=== PATIENT | female | born 1960 | race African-American/Black ===

== ENCOUNTER → 2016-08-26 | Outpatient (CLI) | payer MEDICARE, MEDICAID ==
[2016-08-26 11:47] LABS: ANION GAP 11 (5-19); BLOOD UREA NITROGEN 23 mg/dL (7-20); CALCIUM 9.3 mg/dL (8.4-10.2); CARBON DIOXIDE 23 mmol/L (22-30); CHLORIDE 110 mmol/L (98-107); CREATININE RESULT 0.87 mg/dL (0.52-1.25); GLUCOSE 102 mg/dL (75-110); MAGNESIUM 1.8 mg/dL (1.6-2.3); POTASSIUM 4.2 mmol/L (3.6-5.0); SODIUM 143.7 mmol/L (137-145)
== END ==
LOC: OD 09:50
PROVIDERS: ATTEND Internal Medicine Nephrology
DX: Z94.0 Kidney transplant status (principal); N18.5 Chronic kidney disease, stage 5; E83.42 Hypomagnesemia; Z79.899 Other long term (current) drug therapy
CPT/HCPCS: 36415; 80048; 80197; 83735

== ENCOUNTER 2018-12-18 00:47 | Emergency (ER) | payer MEDICARE, MEDICAID ==
[2018-12-18] MEDS ORDERED: NORMAL SALINE 1000 ML 1,000 ML IV ONE (01:28)
[2018-12-18] MEDS ORDERED: MORPHINE SULFATE 10 MG/ML INJ IV PRN (01:28)
[2018-12-18] MEDS ORDERED: KETOROLAC TROMETHAMINE INJ/PF 30 MG/1 ML SDV IV ONE (01:28)
[2018-12-18] MEDS ORDERED: ONDANSETRON HCL INJ/PF 4 MG/2 ML SDV IV ONE (02:18)
--- NOTE | 2018-12-18 03:00 | ER Document Report ---
ED General - General Chief Complaint: Flank Pain Stated Complaint: FLANK PAIN Time Seen by Provider: 12/18/18 01:20 Primary Care Provider: YOSEPH CHERY MD [Primary Care Provider] - Follow up as needed Notes: Patient is a 58-year-old female with end-stage renal disease, not currently on dialysis, status post renal transplant remotely that presents to the emergency department for chief complaint of left lower quadrant abdominal pain, and hematuria. Patient reports she is been having pain in her left lower quadrant, off and on for about a month, she states is gotten progressively worse over the past few days, she is overall poor historian, is not eliciting much on history taking. She describes her pain as sharp and stabbing, she denies being constipated or having any diarrhea. She also noted some blood in her urine, she states she does produce urine, but is getting close to being put on dialysis, she does have an AV fistula in her left upper extremity. She did have a renal transplant remotely. She also has a ureteral stent, into her renal transplant, she states that was placed in June. She denies having any dysuria, hematuria or urinary frequency. She denies any any fevers, chills, night sweats, chest pain, shortness of breath or difficulty breathing. She currently rates her pain as a 6 out of 10 describes as an aching sharp sensation that seems to be constant in her left lower quadrant. Past Medical History: End-stage renal disease, hypertension Past Surgical History: Renal transplant, ureteral stent, AV fistula Social History: Denies current tobacco, alcohol or drug use. Family History: Reviewed and noncontributory for presenting illness Allergies: Reviewed, see documented allergy list. REVIEW OF SYSTEMS: Other than noted above, the 12 point review of systems was reviewed with the patient and were negative, all pertinent findings are included in the HPI. PHYSICAL EXAMINATION: Vital signs reviewed, nursing noted reviewed. GENERAL: Well-appearing, well-nourished and in no acute distress. HEAD: Atraumatic, normocephalic. EYES: Eyes appear normal, extraocular movements intact, sclera anicteric, conjunctiva are normal. ENT: nares patent, oropharynx clear without exudates. Moist mucous membranes. NECK: Normal range of motion, supple without lymphadenopathy LUNGS: Breath sounds clear to auscultation bilaterally and equal. No wheezes rales or rhonchi. HEART: Regular rate and rhythm without murmurs ABDOMEN: Soft, left lower quadrant tenderness with palpation, her renal transplant graft is palpable on her right lower abdomen it is nontender in this area, normoactive bowel sounds. No rebound, guarding, or rigidity. No masses appreciated. EXTREMITIES: Nontender, good range of motion, trace bilateral lower extremity edema, left upper extremity AV fistula, positive bruit, positive thrill NEUROLOGICAL: No focal neurological deficits. Moves all extremities spontaneously Motor and sensory grossly intact on exam. PSYCH: Normal mood, flat affect SKIN: Warm, Dry, normal turgor, no rashes or lesions noted on exposed skin TRAVEL OUTSIDE OF THE [place] IN LAST 30 DAYS: No - Related Data Allergies/Adverse Reactions: Penicillins Allergy (Unknown, Verified 11/23/18 15:14) Past Medical History - Social History Smoking Status: Never Smoker Chew tobacco use (# tins/day): No Frequency of alcohol use: None Drug Abuse: None Family History: Hypertension Patient has suicidal ideation: No Patient has homicidal ideation: No - Past Medical History Cardiac Medical History: Reports: Hx Hypertension Denies: Hx Coronary Artery Disease, Hx Heart Attack Pulmonary Medical History: Denies: Hx Asthma, Hx Bronchitis, Hx COPD, Hx Pneumonia Neurological Medical History: Reports: Hx Cerebrovascular Accident - 2006. Denies: Hx Seizures Renal/ Medical History: Reports: Hx End Stage Renal Disease. Denies: Hx Peritoneal Dialysis Musculoskeletal Medical History: Denies Hx Arthritis Past Surgical History: Denies: Hx Pacemaker - Immunizations Hx Diphtheria, Pertussis, Tetanus Vaccination: No Physical Exam - Vital signs Vitals: Temp Pulse Ox 99.5 F 100 12/17/18 20:00 12/17/18 20:00 Course - Re-evaluation Re-evalutation: Patient seen and examined vital signs reviewed. Laboratory data and/or imaging were ordered as appropriate for the patient's presenting symptoms and complaint, with consideration of any critical or life threatening conditions that may be associated with their obtained history and exam as noted above. Patient was treated with IV fluid, and was given pain medication as well as antiemetic Results were reviewed when available and demonstrated CT imaging did reveal concern for acute diverticulitis, graft is in place, with stents into the urinary bladder. Her anemia was at baseline, she was noted to have metabolic acidosis, with a bicarb of 15 which was improved from her prior visit, potassium was normal, renal function was worse from her prior visit. Patient states she does still make urine. The patient was re-evaluated and was stable and improved, patient was attempted to give a dose of IV sodium bicarbonate, however her IV had infiltrated, and it was already difficult access, and needed to be performed under ultrasound, and therefore she was given p.o. sodium bicarbonate, and given a dose of p.o. Augmentin, which the patient was monitored and tolerated without any allergic reaction despite her listed allergy to penicillins. Evaluation was most consistent with acute diverticulitis, metabolic acidosis, end-stage renal disease Patient's case was discussed with her share holder, who recommended giving her additional sodium bicarb and increasing her bicarb dosing to 1300 mg 3 times daily. No further recommendations at this time. Results were discussed with the patient at this point, after careful consideration I feel that that patient can be discharged from the emergency department, the patient was educated treatments and reasons to return to the emergency department based on their presumed diagnosis as noted above, they were advised to followup with a primary care physician in 2-3 days. Patient was agreeable to plan of care. *Note is created using voice recognition software and may contain spelling, syntax or grammatical errors. Laboratory 12/18/18 12/18/18 03:11 03:11 WBC 9.5 RBC 3.23 L Hgb 9.7 L Hct 30.7 L MCV 95 MCH 29.9 MCHC 31.5 L RDW 15.5 H Plt Count 166 Seg Neutrophils % 73.4 Lymphocytes % 11.6 L Monocytes % 13.7 H Eosinophils % 0.8 Basophils % 0.5 Absolute Neutrophils 7.0 Absolute Lymphocytes 1.1 Absolute Monocytes 1.3 Absolute Eosinophils 0.1 Absolute Basophils 0.0 Sodium 138.2 Potassium 4.8 Chloride 110 H Carbon Dioxide 15 L Anion Gap 13 BUN 56 H Creatinine 8.76 H Est GFR ( Amer) 6 L Est GFR (Non-Af Amer) 5 L Glucose 98 Calcium 9.4 Abdomen/Pelvis CT 12/18/18 01:28 IMPRESSION: Right lower quadrant renal transplant with the no convincing high-grade hydronephrosis. Acute diverticulitis of the mid sigmoid colon. - Vital Signs Vital signs: Temp Pulse Resp BP Pulse Ox 98.9 F 18 132/78 H 100 12/18/18 06:00 12/18/18 06:00 12/18/18 06:00 12/18/18 06:00 - Laboratory Result Diagrams: 12/18/18 03:11 12/18/18 03:11 Laboratory results interpreted by me: 12/18/18 12/18/18 03:11 03:11 RBC 3.23 L Hgb 9.7 L Hct 30.7 L MCHC 31.5 L RDW 15.5 H Lymphocytes % 11.6 L Monocytes % 13.7 H Chloride 110 H Carbon Dioxide 15 L BUN 56 H Creatinine 8.76 H Est GFR ( Amer) 6 L Est GFR (Non-Af Amer) 5 L Discharge - Discharge Clinical Impression: Acute diverticulitis, ESRD (end stage renal disease), Metabolic acidosis Condition: Stable Disposition: HOME, SELF-CARE Instructions: Diverticulitis ([facility]) Additional Instructions: Please take the amoxicillin once daily, you can start taking this tomorrow since you already received a dose today, for a total of 7 days. Please increase the sodium bicarbonate that you take to 2 tablets 3 times daily, I gave you an extra prescription for this as well as a reminder. Please follow-up with Dr. Chery, call for an appointment as you may be getting to the point where he may need dialysis soon. Prescriptions: Amoxicillin/Potassium Clav [Augmentin 500-125 Tablet] 1 each PO DAILY 7 Days #7 tablet RX: Sodium Bicarbonate [Antacid] 1,300 mg PO TID #90 tablet Referrals: YOSEPH CHERY MD [Primary Care Provider] - Follow up as needed
[2018-12-18 03:17] LABS: ABSOLUTE EOSINOPHILS # (AUTO) 0.1 10^3/uL (0.0-0.6); ABSOLUTE LYMPHOCYTES (AUTO) 1.1 10^3/uL (0.5-4.7); ABSOLUTE MONOCYTES (AUTO) 1.3 10^3/uL (0.1-1.4); BASOPHILS % (AUTO) 0.5 % (0-2); EOSINOPHILS % (AUTO) 0.8 % (0-6); HEMATOCRIT 30.7 % (36.0-47.0); HEMOGLOBIN 9.7 g/dL (12.0-15.5); LYMPHOCYTES % (AUTO) 11.6 % (13-45); MEAN CORPUSCULAR HEMOGLOBIN 29.9 pg (27.0-33.4); MEAN CORPUSCULAR HGB CONC 31.5 g/dL (32.0-36.0); MEAN CORPUSCULAR VOLUME 95 fl (80-97); MONOCYTES % (AUTO) 13.7 % (3-13); PLATELET COUNT 166 10^3/uL (150-450); RED BLOOD COUNT 3.23 10^6/uL (3.72-5.28); RED CELL DISTRIBUTION WIDTH 15.5 % (11.5-14.0); SEGMENTED NEUTROPHILS % (AUTO) 73.4 % (42-78); TOTAL CELLS COUNTED % (AUTO) 100 %; WHITE BLOOD COUNT 9.5 10^3/uL (4.0-10.5)
[2018-12-18 03:42] LABS: ANION GAP 13 (5-19); BLOOD UREA NITROGEN 56 mg/dL (7-20); CALCIUM 9.4 mg/dL (8.4-10.2); CARBON DIOXIDE 15 mmol/L (22-30); CHLORIDE 110 mmol/L (98-107); GLUCOSE 98 mg/dL (75-110); POTASSIUM 4.8 mmol/L (3.6-5.0); SODIUM 138.2 mmol/L (137-145)
[2018-12-18] MEDS ORDERED: SODIUM BICARBONATE 8.4% INJ 50 MEQ/50 ML DISP.SYRIN IV ONE (03:53)
--- NOTE | 2018-12-18 03:56 | RADIOLOGY REPORT (SQ) ---
CLINICAL HISTORY: R flank pain, ?kidney stone COMPARISON: None. TECHNIQUE: CT ABDOMEN PELVIS WITHOUT IV CONTRAST on 12/18/2018 1:28 AM CDT This exam was performed according to our departmental dose-optimization program, which includes automated exposure control, adjustment of the mA and/or kV according to patient size and/or use of iterative reconstruction technique. FINDINGS: There is mild bibasilar atelectasis. There are trace bilateral pleural effusions. Heart is enlarged. Abdomen: The liver is normal in appearance. There is no biliary dilatation. Gallbladder is normal in appearance. The pancreas and spleen are normal in appearance. Right adrenal gland is normal. The left adrenal gland is slightly enlarged. There is a right lower quadrant renal transplant with ureteral stent in place. There is no convincing hydronephrosis. Bilateral nephrectomies were performed. Abdominal aorta is normal in course and caliber without aneurysm. There is no free air. There is no retroperitoneal adenopathy.Abdominal aorta is densely calcified without aneurysm. There is a small fat-containing supraumbilical anterior abdominal wall hernia. Pelvis: There is a diverticulum in the mid sigmoid colon best seen on axial image 64 with moderate surrounding inflammation. Urinary bladder is unremarkable. There is no free fluid. Uterus is small in size. Appendix is normal. Skeleton: There are no acute osseous findings. No suspicious bony lesions. IMPRESSION: Right lower quadrant renal transplant with the no convincing high-grade hydronephrosis. Acute diverticulitis of the mid sigmoid colon.
[2018-12-18] MEDS ORDERED: PIPERACILLIN/TAZOBACTAM 2.25 GM VIAL IV ONE (04:14)
[2018-12-18] MEDS ORDERED: AMOXICILLIN TR/POT CLAVULANATE 500-125 MG TAB PO ONE (04:45)
[2018-12-18] MEDS ORDERED: SODIUM BICARBONATE 650 MG TABLET PO ONE (04:45)
[2018-12-18 06:21] VITALS: BP 132/78
== END 2018-12-18 06:24 | disposition home or self-care (01) ==
LOC: ER 00:47
DX: K57.92 Diverticulitis of intestine, part unspecified, without perforation or abscess without bleeding (principal); E87.2 Acidosis; R10.9 Unspecified abdominal pain; R31.9 Hematuria, unspecified; I12.0 Hypertensive chronic kidney disease with stage 5 chronic kidney disease or end stage renal disease; N18.6 End stage renal disease; Z94.0 Kidney transplant status; Z88.0 Allergy status to penicillin; Z86.74 Personal history of sudden cardiac arrest
CPT/HCPCS: 99284; 96361; 96374; 96375; 36415; 85025; 80048; 74176; A9270; J2270; J2405; J7030

== ENCOUNTER 2018-12-21 10:01 | Inpatient (IN) | payer MEDICARE, MEDICAID ==
--- NOTE | 2018-12-21 10:21 | ER Document Report ---
ED Medical Screen (RME) - General Chief Complaint: Leg Swelling Stated Complaint: FEET SWELLING Time Seen by Provider: 12/21/18 10:17 Primary Care Provider: YOSEPH CHERY MD [Primary Care Provider] - Follow up as needed TRAVEL OUTSIDE OF THE [place] IN LAST 30 DAYS: No - HPI Notes: 12/21/18 10:22 Patient is a 58-year-old female with a history of end-stage renal disease, statu s post renal transplant 2013 and hypertension who presents complaining of increased swelling in her bilateral lower extremities Over the past 3 days. Patient states that she is not having any pain or discomfort. She is eating and drinking without difficulties. She is still able to produce urine. She is having normal bowel movements. She was evaluated about a month ago for similar symptoms and was transferred for dialysis. She is not currently on dialysis otherwise. She was evaluated here 3 days ago as well for abdominal pain. Denies HALL, fever, neck pain, URI, CP, SOB, Abd pain, n/v/d, or rash. I have treated and performed a rapid initial assessment of this patient. A comprehensive ED assessment and evaluation of the patient, analysis of test results and completion of medical decision making process will be conducted by additional ED providers. PHYSICAL EXAMINATION: GENERAL: Well-appearing, well-nourished and in no acute distress. A&Ox4. Answers questions appropriately. LUNGS: Breath sounds clear to auscultation bilaterally and equal. No wheezes rales or rhonchi. HEART: Regular rate and rhythm without murmurs, rubs, gallops. Extremities: 2+ pitting edema bilateral lower extremities. No calf tenderness. NEUROLOGICAL: Normal speech, normal gait. PSYCH: Normal mood, normal affect. - Related Data Allergies/Adverse Reactions: Penicillins Allergy (Unknown, Verified 12/21/18 10:02) Past Medical History - Social History Chew tobacco use (# tins/day): No Frequency of alcohol use: None Drug Abuse: None - Past Medical History Cardiac Medical History: Reports: Hx Hypertension Denies: Hx Coronary Artery Disease, Hx Heart Attack Pulmonary Medical History: Denies: Hx Asthma, Hx Bronchitis, Hx COPD, Hx Pneumonia Neurological Medical History: Reports: Hx Cerebrovascular Accident - 2005. Denies: Hx Seizures Renal/ Medical History: Reports: Hx End Stage Renal Disease. Denies: Hx Peritoneal Dialysis Musculoskeltal Medical History: Denies Hx Arthritis Past Surgical History: Denies: Hx Pacemaker - Immunizations Hx Diphtheria, Pertussis, Tetanus Vaccination: No Physical Exam - Vital signs Vitals: Temp Pulse Resp BP Pulse Ox 98.7 F 82 20 125/55 L 98 12/21/18 10:09 12/21/18 10:09 12/21/18 10:12/21/18 10:12/21/18 10:09 Course - Vital Signs Vital signs: Temp Pulse Resp BP Pulse Ox 98.7 F 82 20 125/55 L 98 12/21/18 10:09 12/21/18 10:09 12/21/18 10:09 12/21/18 10:09 12/21/18 10:09 Doctor's Discharge - Discharge Referrals: YOSEPH CHERY MD [Primary Care Provider] - Follow up as needed
[2018-12-21 11:14] LABS: ABSOLUTE BASOPHILS # (AUTO) 0.1 10^3/uL (0.0-0.2); ABSOLUTE EOSINOPHILS # (AUTO) 0.2 10^3/uL (0.0-0.6); ABSOLUTE LYMPHOCYTES (AUTO) 1.4 10^3/uL (0.5-4.7); ABSOLUTE MONOCYTES (AUTO) 0.7 10^3/uL (0.1-1.4); ABSOLUTE NEUT (AUTO) 4.9 10^3/uL (1.7-8.2); BASOPHILS % (AUTO) 1.3 % (0-2); EOSINOPHILS % (AUTO) 2.1 % (0-6); HEMATOCRIT 29.4 % (36.0-47.0); HEMOGLOBIN 9.2 g/dL (12.0-15.5); LYMPHOCYTES % (AUTO) 19.6 % (13-45); MEAN CORPUSCULAR HEMOGLOBIN 29.6 pg (27.0-33.4); MEAN CORPUSCULAR HGB CONC 31.3 g/dL (32.0-36.0); MEAN CORPUSCULAR VOLUME 94 fl (80-97); MONOCYTES % (AUTO) 10.1 % (3-13); PLATELET COUNT 178 10^3/uL (150-450); RED BLOOD COUNT 3.12 10^6/uL (3.72-5.28); RED CELL DISTRIBUTION WIDTH 15.4 % (11.5-14.0); SEGMENTED NEUTROPHILS % (AUTO) 66.9 % (42-78); TOTAL CELLS COUNTED % (AUTO) 100 %; WHITE BLOOD COUNT 7.3 10^3/uL (4.0-10.5)
[2018-12-21 11:26] LABS: APPEARANCE,URINE CLOUDY; BILIRUBIN,URINE NEGATIVE (NEGATIVE); COLOR,URINE YELLOW; GLUCOSE, URINE NEGATIVE (NEGATIVE); KETONES,URINE NEGATIVE (NEGATIVE); LEUKOCYTE ESTERASE,URINE LARGE (NEGATIVE); NITRITE,URINE NEGATIVE (NEGATIVE); PROTEIN,URINE >=500 mg/dL (NEGATIVE); URINE SPECIFIC GRAVITY 1.011; UROBILINOGEN,URINE NEGATIVE mg/dL (<2.0)
[2018-12-21 11:30] LABS: ALANINE AMINOTRANSFERASE 9 U/L (9-52); ALBUMIN 3.9 g/dL (3.5-5.0); ALKALINE PHOSPHATASE 109 U/L (38-126); ANION GAP 16 (5-19); ASPARTATE AMINO TRANSFERASE 20 U/L (14-36); BILIRUBIN,DIRECT 0.4 mg/dL (0.0-0.4); BILIRUBIN,TOTAL 0.5 mg/dL (0.2-1.3); BLOOD UREA NITROGEN 64 mg/dL (7-20); CALCIUM 9.1 mg/dL (8.4-10.2); CARBON DIOXIDE 16 mmol/L (22-30); CHLORIDE 108 mmol/L (98-107); GLUCOSE 93 mg/dL (75-110); POTASSIUM 4.6 mmol/L (3.6-5.0); SODIUM 139.9 mmol/L (137-145); TOTAL PROTEIN 7.6 g/dL (6.3-8.2)
[2018-12-21] MEDS ORDERED: CEFTRIAXONE INJ 1000 MG VIAL IV ONE (12:09)
--- NOTE | 2018-12-21 12:15 | ER Document Report ---
ED General - General Chief Complaint: Leg Swelling Stated Complaint: FEET SWELLING Time Seen by Provider: 12/21/18 10:17 Primary Care Provider: YOSEPH CHERY MD [Primary Care Provider] - Follow up as needed TRAVEL OUTSIDE OF THE [place] IN LAST 30 DAYS: No - HPI Notes: Patient is a 58-year-old female that presents to the emergency department for chief complaint of leg edema. Patient reports increased swelling in her legs over the last 2 to 3 days. She states they are now becoming more painful to walk on. She denies history of DVT or PE. She denies any difficulty breathing or chest pain. She states that she usually does not have edema in her lower extremities. She does have a history of renal transplant and does still make urine. She has previously needed dialysis but is not currently on dialysis. Patient was recently here a few days ago and diagnosed with diverticulitis. She states she has not been taking her antibiotics because she cannot afford them or the transportation to the pharmacy to get them filled. She does have a daughter who lives in [place] and her mother in [place] who she states will help but the pharmacy will not let them pay by phone. She does report her abdominal pain has improved. She denies any vomiting fevers or chills. She denies any worsening abdominal pain. She denies diarrhea or bloody stools. Past Medical History: End-stage renal disease, hypertension Past Surgical History: Renal transplant, ureteral stent, AV fistula Social History: Denies current tobacco, alcohol or drug use. Family History: Reviewed and noncontributory for presenting illness Allergies: Reviewed, see documented allergy list. REVIEW OF SYSTEMS: CONSTITUTIONAL : No fever No chills No diaphoresis No recent illness EENT: No vision changes No congestion No sore throat CARDIOVASCULAR: No chest pain No palpitations RESPIRATORY: No shortness of breath No cough No difficulty breathing GASTROINTESTINAL: abdominal pain No nausea No vomiting No diarrhea GENITOURINARY: No dysuria No hematuria No difficulty urinating MUSCULOSKELETAL: No back pain leg pain No arm pain SKIN: No rashes No lesions LYMPHATIC: No swollen, enlarged glands. NEUROLOGICAL: No lightheadedness No headache No weakness No paresthesias PSYCHIATRIC: No anxiety No depression PHYSICAL EXAMINATION: Vital signs reviewed, nursing noted reviewed. GENERAL: Well-appearing, well-nourished and in no acute distress. HEAD: Atraumatic, normocephalic. EYES: Eyes appear normal, extraocular movements intact, sclera anicteric, conjunctiva are normal. ENT: nares patent, oropharynx clear without exudates. Moist mucous membranes. NECK: Normal range of motion, supple without lymphadenopathy LUNGS: Breath sounds clear to auscultation bilaterally and equal. No wheezes rales or rhonchi. HEART: Regular rate and rhythm without murmurs ABDOMEN: Soft, nontender, normoactive bowel sounds. No rebound, guarding, or rigidity. No masses appreciated. EXTREMITIES: Left upper extremity AV fistula with normal bruit and thrill, nontender, good range of motion, +2 pitting edema bilateral lower extremities with left leg more swollen than right. NEUROLOGICAL: No focal neurological deficits. Moves all extremities spontaneousl y Motor and sensory grossly intact on exam. PSYCH: Normal mood, normal affect. SKIN: Warm, Dry, normal turgor, no rashes or lesions noted on exposed skin - Related Data Allergies/Adverse Reactions: Penicillins Allergy (Unknown, Verified 12/21/18 10:02) Past Medical History - Social History Smoking Status: Unknown if Ever Smoked Chew tobacco use (# tins/day): No Frequency of alcohol use: None Drug Abuse: None Family History: Hypertension Patient has suicidal ideation: No Patient has homicidal ideation: No - Past Medical History Cardiac Medical History: Reports: Hx Hypertension Denies: Hx Coronary Artery Disease, Hx Heart Attack Pulmonary Medical History: Denies: Hx Asthma, Hx Bronchitis, Hx COPD, Hx Pneumonia Neurological Medical History: Reports: Hx Cerebrovascular Accident - 2005. Denies: Hx Seizures Renal/ Medical History: Reports: Hx End Stage Renal Disease. Denies: Hx Peritoneal Dialysis Musculoskeletal Medical History: Denies Hx Arthritis Past Surgical History: Denies: Hx Pacemaker - Immunizations Hx Diphtheria, Pertussis, Tetanus Vaccination: No Physical Exam - Vital signs Vitals: Temp Pulse Resp BP Pulse Ox 98.7 F 82 20 125/55 L 98 12/21/18 10:09 12/21/18 10:09 12/21/18 10:09 12/21/18 10:09 12/21/18 10:09 Course - Re-evaluation Re-evalutation: 12/21/18 12:14 Vitals reviewed. Nursing notes reviewed. Patient has no apparent abdominal tenderness and reports her abdominal pain has improved. She has no leukocytosis or intractable vomiting to suggest worsening diverticulitis which would necessitate further imaging. Patient does have acute urinary tract infection. She had previously tolerated Augmentin and will be given Rocephin for her acute UTI in the ED. Patient's renal function is worsening from her previous visit. She has no acute hyperkalemia. I am currently awaiting a callback from Dr. Eubanks to discuss her renal function. Patient is otherwise well-appearing and hemodynamically stable. Laboratory 12/21/18 12/21/18 12/21/18 10:54 10:54 10:54 WBC 7.3 RBC 3.12 L Hgb 9.2 L Hct 29.4 L MCV 94 MCH 29.6 MCHC 31.3 L RDW 15.4 H Plt Count 178 Seg Neutrophils % 66.9 Lymphocytes % 19.6 Monocytes % 10.1 Eosinophils % 2.1 Basophils % 1.3 Absolute Neutrophils 4.9 Absolute Lymphocytes 1.4 Absolute Monocytes 0.7 Absolute Eosinophils 0.2 Absolute Basophils 0.1 Sodium 139.9 Potassium 4.6 Chloride 108 H Carbon Dioxide 16 L Anion Gap 16 BUN 64 H Creatinine 10.42 H Est GFR ( Amer) 5 L Est GFR (Non-Af Amer) 4 L Glucose 93 Calcium 9.1 Total Bilirubin 0.5 Direct Bilirubin 0.4 Neonat Total Bilirubin Not Reportable Neonat Direct Bilirubin Not Reportable Neonat Indirect Bili Not Reportable AST 20 ALT 9 Alkaline Phosphatase 109 Total Protein 7.6 Albumin 3.9 Urine Color YELLOW Urine Appearance CLOUDY Urine pH 6.0 Ur Specific [place] 1.011 Urine Protein >=500 H Urine Glucose (UA) NEGATIVE Urine Ketones NEGATIVE Urine Blood MODERATE H Urine Nitrite NEGATIVE Urine Bilirubin NEGATIVE Urine Urobilinogen NEGATIVE Ur Leukocyte Esterase LARGE H Urine WBC (Auto) >182 Urine RBC (Auto) 78 Urine Bacteria (Auto) 1+ Urine WBC Clumps MANY Squamous Epi Cells Auto 13 Urine Mucus (Auto) RARE Urine Ascorbic Acid NEGATIVE 12/21/18 13:29 Patient's care was discussed with Dr. Eubanks. She is not having any signs of respiratory distress or pulmonary vascular congestion. She is oxygenating well on room air. He would like her to be dialyzed in the next 1 to 2 days but it does not have to be emergently done today since her respiratory status and electrolytes are stable. He will follow with this patient on consultation. Patient will be admitted to the hospital for further management of her renal failure as well as UTI. Patient's care discussed with Dr. Gay who accepts admission. - Vital Signs Vital signs: Temp Pulse Resp BP Pulse Ox 98.7 F 82 20 125/55 L 98 12/21/18 10:09 12/21/18 10:09 12/21/18 10:09 12/21/18 10:09 12/21/18 10:09 - Laboratory Result Diagrams: 12/21/18 10:54 12/21/18 10:54 Laboratory results interpreted by me: 12/21/18 12/21/18 12/21/18 10:54 10:54 10:54 RBC 3.12 L Hgb 9.2 L Hct 29.4 L MCHC 31.3 L RDW 15.4 H Chloride 108 H Carbon Dioxide 16 L BUN 64 H Creatinine 10.42 H Est GFR ( Amer) 5 L Est GFR (Non-Af Amer) 4 L Urine Protein >=500 H Urine Blood MODERATE H Ur Leukocyte Esterase LARGE H Discharge - Discharge Clinical Impression: Acute UTI, Medical non-compliance, Leg edema Acute on chronic renal failure Qualifiers: Acute renal failure type: unspecified Chronic kidney disease stage: unspecified stage Qualified Code(s): N17.9 - Acute kidney failure, unspecified Condition: Stable Disposition: ADMITTED INPATIENT Admitting Provider: [facility] Unit Admitted: Medical Floor Referrals: YOSEPH CHERY MD [Primary Care Provider] - Follow up as needed
--- NOTE | 2018-12-21 14:04 | RADIOLOGY REPORT (SQ) ---
EXAM DESCRIPTION: VENOUS BILATERAL LOWER COMPLETED DATE/TIME: 12/21/2018 1:53 pm REASON FOR STUDY: edema COMPARISON: None. TECHNIQUE: Dynamic and static calvo scale and color images acquired of both lower extremity venous sy stems. Selected spectral images acquired with additional compression and augmentation maneuvers. Imag es stored on PACS. LIMITATIONS: None. FINDINGS: RIGHT LEG COMMON FEMORAL AND FEMORAL: Normal phasicity, compression and augmentation. No visualized echogenic m aterial on calvo scale. No defects on color images. POPLITEAL: Normal compression and augmentation. No visualized echogenic material on cavlo scale. No de fects on color images. CALF VESSELS: Normal compression and augmentation. No visualized echogenic material on calvo scale. No defects on color image. GSV AND SSV: Normal compression. No visualized echogenic material on calvo scale. No defects on color images. ANY DEEP VENOUS INSUFFICIENCY: Not evaluated. ANY EVIDENCE OF POPLITEAL CYST: No. OTHER: Soft tissue edema. LEFT LEG COMMON FEMORAL AND FEMORAL: Normal phasicity, compression and augmentation. No visualized echogenic m aterial on calvo scale. No defects on color images. POPLITEAL: Normal compression and augmentation. No visualized echogenic material on calvo scale. No de fects on color images. CALF VESSELS: Normal compression and augmentation. No visualized echogenic material on calvo scale. No defects on color images. GSV AND SSV: Normal compression. No visualized echogenic material on calvo scale. No defects on color images. ANY DEEP VENOUS INSUFFICIENCY: Not evaluated. ANY EVIDENCE POPLITEAL CYST: No. OTHER: Soft tissue edema. IMPRESSION: NO EVIDENCE DVT OR SVT IN EITHER LEG. TECHNICAL DOCUMENTATION: JOB ID: [id number] [employer]- All Rights Reserved Reading location - IP/workstation name: [email or web address]
[2018-12-21 15:46] LABS: LIPASE 77.4 U/L (23-300)
[2018-12-21] MEDS: HEPARIN SOD (PORCINE) 5,000 UNIT/ML 1 ML SYRINGE SUBCUT SCH ×2 (16:23→21:21)
[2018-12-21] MEDS ORDERED: (PENDING PHARMACY ID) (Simethicone [Gas Relief] 125 MG) PO PRN (17:38)
[2018-12-21] MEDS ORDERED: CLONIDINE 0.1 MG/24 HR PATCH.TDWK TD SCH (17:45)
[2018-12-21] MEDS ORDERED: TACROLIMUS ANHYDROUS 1 MG CAPSULE PO ONE (18:00)
[2018-12-21] MEDS ORDERED: MYCOPHENOLATE SODIUM 720 MG PO SCH (18:00)
[2018-12-21] MEDS: FUROSEMIDE 80 MG TABLET PO SCH (19:31)
[2018-12-21] MEDS: AMLODIPINE BESYLATE 10 MG TABLET PO SCH (19:31)
[2018-12-21] MEDS: SODIUM BICARBONATE 650 MG TABLET PO SCH (19:31)
[2018-12-21] MEDS ORDERED: CLONIDINE 0.1 MG/24 HR PATCH.TDWK ONE (20:51)
[2018-12-21] MEDS: PREDNISONE 5 MG TABLET PO SCH (21:19)
[2018-12-21 23:27] LABS: INTERNATIONAL RATION (INR) 1.02; PROTHROMBIN TIME 13.9 SEC (11.4-15.4)
[2018-12-22 00:01] LABS: FREE T4 (FREE THYROXINE) 1.15 ng/dL (0.78-2.19)
[2018-12-22 00:14] LABS: THYROID STIMULATING HORMONE 3.13 uIU/mL (0.47-4.68)
[2018-12-22] MEDS: HEPARIN SOD (PORCINE) 5,000 UNIT/ML 1 ML SYRINGE SUBCUT SCH ×3 (05:10→21:26)
[2018-12-22 05:49] LABS: ABSOLUTE LYMPHOCYTES (AUTO) 0.6 10^3/uL (0.5-4.7); ABSOLUTE MONOCYTES (AUTO) 0.5 10^3/uL (0.1-1.4); BASOPHILS % (AUTO) 0.6 % (0-2); EOSINOPHILS % (AUTO) 0.1 % (0-6); HEMATOCRIT 26.7 % (36.0-47.0); HEMOGLOBIN 8.5 g/dL (12.0-15.5); LYMPHOCYTES % (AUTO) 7.5 % (13-45); MEAN CORPUSCULAR HEMOGLOBIN 29.8 pg (27.0-33.4); MEAN CORPUSCULAR HGB CONC 31.7 g/dL (32.0-36.0); MEAN CORPUSCULAR VOLUME 94 fl (80-97); MONOCYTES % (AUTO) 5.8 % (3-13); PLATELET COUNT 147 10^3/uL (150-450); RED BLOOD COUNT 2.84 10^6/uL (3.72-5.28); RED CELL DISTRIBUTION WIDTH 15.1 % (11.5-14.0); TOTAL CELLS COUNTED % (AUTO) 100 %; WHITE BLOOD COUNT 8.1 10^3/uL (4.0-10.5)
[2018-12-22 06:01] LABS: ALANINE AMINOTRANSFERASE 11 U/L (9-52); ALBUMIN 3.1 g/dL (3.5-5.0); ALKALINE PHOSPHATASE 92 U/L (38-126); ANION GAP 13 (5-19); ASPARTATE AMINO TRANSFERASE 15 U/L (14-36); BILIRUBIN,DIRECT 0.4 mg/dL (0.0-0.4); BILIRUBIN,TOTAL 0.4 mg/dL (0.2-1.3); BLOOD UREA NITROGEN 64 mg/dL (7-20); CALCIUM 8.4 mg/dL (8.4-10.2); CARBON DIOXIDE 16 mmol/L (22-30); CHLORIDE 110 mmol/L (98-107); GLUCOSE 110 mg/dL (75-110); POTASSIUM 5.3 mmol/L (3.6-5.0); SODIUM 139.4 mmol/L (137-145)
[2018-12-22] MEDS ORDERED: CEFTRIAXONE 1 GM/D5W RTU 1 GM/50 ML RTUPB IV SCH (10:00)
[2018-12-22] MEDS: SODIUM BICARBONATE 650 MG TABLET PO SCH ×2 (10:12→17:23)
[2018-12-22] MEDS: AMLODIPINE BESYLATE 10 MG TABLET PO SCH (10:12)
[2018-12-22] MEDS: FUROSEMIDE 80 MG TABLET PO SCH (10:12)
[2018-12-22] MEDS: TACROLIMUS ANHYDROUS 1 MG CAPSULE PO SCH ×2 (10:13→21:31)
[2018-12-22] MEDS: PREDNISONE 5 MG TABLET PO SCH (10:13)
[2018-12-22] MEDS ORDERED: SIMETHICONE 80 MG TAB.CHEW PO PRN (10:29)
[2018-12-22 11:32] LABS: ABSOLUTE RETICS # 0.039 10^6/uL (0.028-0.122); RETICULOCYTE COUNT (AUTO) 1.36 % (0.66-2.85)
[2018-12-22 11:44] LABS: IRON(TIBC) 26.1 ug/dL (37-170)
[2018-12-22] MEDS ORDERED: TUBERCULIN,PURIF.PROT.DERIV. 5 TU/0.1 ML TEST 1 ML VIAL ID ONE ×2 (12:00)
[2018-12-22] MEDS ORDERED: MYCOPHENOLATE SODIUM 540 MG PO SCH (12:30)
[2018-12-22 12:52] LABS: FOLATE 5.73 ng/mL (>2.76)
[2018-12-22] MEDS: CALCIUM ACETATE 667 MG CAPSULE PO SCH ×2 (12:59→17:23)
[2018-12-22] MEDS: ERGOCALCIFEROL (VITAMIN D2) 50000 UNIT (1.25 MG) CAPSULE PO SCH (12:59)
--- NOTE | 2018-12-22 13:00 | PDOC CONSULTATION ---
Consultation Consult Date: 12/22/18 Provider Consulted: YOSEPH CHERY Consult reason:: I was asked to see this patient due to worsening kidney function in a patient with underlying chronic kidney disease. 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 Patient was in the emergency room last Friday about 4 days ago because of abdominal pain and was diagnosed with diverticulitis. She was prescribed antibiotics from the emergency room but has not been able to fill it due to financial constraints. She said her abdominal pain has subsided since then and is currently not experiencing it anymore. She denies any more nausea, vomiting, diarrhea nor fever nor chills. However since that same Friday she started having increasing lower extremity edema despite being on Lasix. She said the swelling has gotten worse to the point that her legs are so tired that she is unable to walk anymore so she went to the emergency room yesterday. She has a slight on and off chest pain but denies any shortness of breath. Upon presentation patient has a BUN of 64, creatinine of 10.35 and EGFR of 5. Patient's kidney function has been progressively deteriorating for the last few months. In June while she was still in [place] she was told that her creatinine was 7. Last month when she presented to the emergency room and was subsequently transferred to [facility] her creatinine was 6.16. I spoke to the kidney transplant team at [facility] while she was there and they did not cover and she is most likely going to need to be started on renal replacement therapy very soon. I saw her in the office for follow-up visit on 12/07/2018 and spoke to her about initiation of renal replacement therapy. Patient was on dialysis previously and is well versed with what it entails to do hemodialysis. When I saw her this morning she asked me when she is going to start hemodialysis. She is pretty much agreeable to starting hemodialysis. Patient was also noted to be very anemic with hemoglobin of 8.5. She is also noted to have urinary tract infection and was started on IV ceftriaxone. The patient is still makes some urine. 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 Hematology Medical History: Reports Anemia of Chronic Kidney Disease Past Surgical History Past Surgical History: Reports: Dialysis Access Surgery AVF - 02/07/2012, Nephrectomy - Left 02/09/2016; right 06/07/[address] Bush and El, Renal Artery Angioplasty, Renal Stent, Renal Transplant, Other - Angioplasty of right common iliac artery and right external iliac artery Social History Information Source: Patient Lives with: Alone Smoking Status: Former Smoker Frequency of Alcohol Use: None Hx Recreational Drug Use: Yes Family History Family History: CAD - Brother, Chronic Kidney Disease - ADPKD on her mother, brother and sister, DM - Father, Hypertension - Mother, brother and sister, Malignancy - Prostate cancer on her father; lymphoma in her mother Parental Family History Reviewed: Yes Children Family History Reviewed: Yes Sibling(s) Family History Reviewed.: Yes Medication/Allergy Home Medications: Amlodipine Besylate [Norvasc 10 mg Tablet] 10 mg PO DAILY 12/21/18 Clonidine [Catapres-Tts 1 (0.1 mg/24 Hr) Transderm Patch] 1 patch TD Q7D 12/21/18 Furosemide [Lasix 80 mg Tablet] 80 mg PO DAILY 12/21/18 Mycophenolate Sodium [Mycophenolic Acid] 720 mg PO BID 12/21/18 Prednisone [Deltasone 5 mg Tablet] 5 mg PO DAILY 12/21/18 Simethicone [Gas Relief] 125 mg PO DAILYP PRN 12/21/18 Sodium Bicarbonate [Antacid] 1,300 mg PO BID 12/21/18 Tacrolimus [Prograf] 4 mg PO Q12 12/21/18 Ergocalciferol (Vitamin D2) [Drisdol 50,000 Unit (1.25MG) Capsule] 50,000 unit PO TU@1000 12/22/18 Allergies/Adverse Reactions: Penicillins Allergy (Unknown, Verified 12/21/18 10:02) Review of Systems All systems: reviewed and no additional remarkable complaints except as stated Review of Systems: Constitutional: ABSENT: chills, fever(s), headache(s), weight gain, weight loss; admits fatigue Eyes: ABSENT: visual disturbances Ears: ABSENT: hearing changes Cardiovascular: ABSENT: chest pain, dyspnea on exertion, orthropnea, palpitations; admits edema Respiratory: ABSENT: cough, dyspnea, hemoptysis Gastrointestinal: ABSENT: abdominal pain, constipation, diarrhea, hematemesis, hematochezia, nausea, vomiting Genitourinary: ABSENT: dysuria, hematuria Musculoskeletal: ABSENT: joint swelling Integumentary: ABSENT: rash, wounds Neurological: ABSENT: abnormal gait, abnormal speech, confusion, dizziness, focal weakness, numbness, syncope Psychiatric: ABSENT: anxiety, depression Endocrine: ABSENT: cold intolerance, heat intolerance, polydipsia, polyuria Hematologic/Lymphatic: ABSENT: easy bleeding, easy bruising, lymphadenopathy Physical Exam Vital Signs: Temp Pulse Resp BP Pulse Ox 98.6 F 91 16 150/73 H 98 12/22/18 07:15 12/22/18 07:15 12/22/18 07:15 12/22/18 07:15 12/22/18 07:15 Intake & Output 12/21/18 12/22/18 12/23/18 06:59 06:59 06:59 Intake Total 930 Balance 930 Weight 92.9 kg Exam: General appearance: No acute distress, cooperative, well-developed, well- nourished Head exam: PRESENT: atraumatic, normocephalic Eye exam: PRESENT: Conjunctiva pale, EOMI, PERRLA. ABSENT: conjunctival injection, scleral icterus Mouth exam: PRESENT: moist, neck supple, tongue midline Neck exam: PRESENT: full ROM. ABSENT: carotid bruit, JVD, lymphadenopathy, thyromegaly Respiratory exam: PRESENT: clear to auscultation bilaterally. ABSENT: rales, rhonchi, stridor, wheezes Cardiovascular exam: PRESENT: RRR, +S1, +S2. ABSENT: systolic murmur Pulses: PRESENT: normal radial pulses, normal dorsalis pedis pulses GI/Abdominal exam: PRESENT: normal bowel sounds, soft. ABSENT: guarding, mass, tenderness Rectal exam: Deferred Extremities exam: PRESENT: full ROM. Grade 1 bilateral lower extremity edema. Left arm AV fistula with good bruit and thrill. ABSENT: calf tenderness Musculoskeletal: PRESENT: full ROM. ABSENT: deformity Neurological exam: PRESENT: alert, Awake, Oriented to person, Oriented to place, Oriented to time, reflexes normal, CN II-XII grossly intact. ABSENT: motor sensory deficit Psychiatric exam: PRESENT: appropriate affect, normal mood. ABSENT: homicidal ideation, suicidal ideation Skin exam: PRESENT: intact, dry, warm. ABSENT: rash Results Laboratory Results: 12/22/18 04:58 12/22/18 04:58 12/21/18 12/21/18 12/21/18 10:54 10:54 10:54 WBC 7.3 RBC 3.12 L Hgb 9.2 L Hct 29.4 L MCV 94 MCH 29.6 MCHC 31.3 L RDW 15.4 H Plt Count 178 Seg Neutrophils % 66.9 Lymphocytes % 19.6 Monocytes % 10.1 Eosinophils % 2.1 Basophils % 1.3 Absolute Neutrophils 4.9 Absolute Lymphocytes 1.4 Absolute Monocytes 0.7 Absolute Eosinophils 0.2 Absolute Basophils 0.1 Sodium 139.9 Potassium 4.6 Chloride 108 H Carbon Dioxide 16 L Anion Gap 16 BUN 64 H Creatinine 10.42 H Est GFR ( Amer) 5 L Est GFR (Non-Af Amer) 4 L Glucose 93 Calcium 9.1 Phosphorus Magnesium Total Bilirubin 0.5 AST 20 ALT 9 Alkaline Phosphatase 109 Ammonia Total Protein 7.6 Albumin 3.9 Amylase Lipase TSH Free T4 Urine Color YELLOW Urine Appearance CLOUDY Urine pH 6.0 Ur Specific Morrill 1.011 Urine Protein >=500 H Urine Glucose (UA) NEGATIVE Urine Ketones NEGATIVE Urine Blood MODERATE H Urine Nitrite NEGATIVE Ur Leukocyte Esterase LARGE H Urine WBC (Auto) >182 Urine RBC (Auto) 78 12/21/18 12/21/18 12/21/18 15:02 15:02 23:11 WBC RBC Hgb Hct MCV MCH MCHC RDW Plt Count Seg Neutrophils % Lymphocytes % Monocytes % Eosinophils % Basophils % Absolute Neutrophils Absolute Lymphocytes Absolute Monocytes Absolute Eosinophils Absolute Basophils Sodium Potassium Chloride Carbon Dioxide Anion Gap BUN Creatinine Est GFR ( Amer) Est GFR (Non-Af Amer) Glucose Calcium Phosphorus 7.0 H Magnesium 2.0 Total Bilirubin AST ALT Alkaline Phosphatase Ammonia < 8.7 L Total Protein Albumin Amylase 81 Lipase 77.4 TSH 3.13 Free T4 1.15 Urine Color Urine Appearance Urine pH Ur Specific Morrill Urine Protein Urine Glucose (UA) Urine Ketones Urine Blood Urine Nitrite Ur Leukocyte Esterase Urine WBC (Auto) Urine RBC (Auto) 12/22/18 12/22/18 04:58 04:58 WBC 8.1 RBC 2.84 L Hgb 8.5 L Hct 26.7 L MCV 94 MCH 29.8 MCHC 31.7 L RDW 15.1 H Plt Count 147 L Seg Neutrophils % 86.0 H Lymphocytes % 7.5 L Monocytes % 5.8 Eosinophils % 0.1 Basophils % 0.6 Absolute Neutrophils 7.0 Absolute Lymphocytes 0.6 Absolute Monocytes 0.5 Absolute Eosinophils 0.0 Absolute Basophils 0.0 Sodium 139.4 Potassium 5.3 H Chloride 110 H Carbon Dioxide 16 L Anion Gap 13 BUN 64 H Creatinine 10.35 H Est GFR ( Amer) 5 L Est GFR (Non-Af Amer) 4 L Glucose 110 Calcium 8.4 Phosphorus Magnesium Total Bilirubin 0.4 AST 15 ALT 11 Alkaline Phosphatase 92 Ammonia Total Protein 6.0 L Albumin 3.1 L Amylase Lipase TSH Free T4 Urine Color Urine Appearance Urine pH Ur Specific Morrill Urine Protein Urine Glucose (UA) Urine Ketones Urine Blood Urine Nitrite Ur Leukocyte Esterase Urine WBC (Auto) Urine RBC (Auto) Impressions: Venous Doppler Study 12/21/18 12:12 IMPRESSION: NO EVIDENCE DVT OR SVT IN EITHER LEG. Assessment & Plan - Diagnosis (1) ESRD (end stage renal disease) Is this a current diagnosis for this admission?: Yes Plan: Patient's kidney function has been progressively deteriorating due to of failing kidney transplant. She had bilateral wales kidney nephrectomies in 2016. She is already showing signs of starting fluid retention and uremic symptoms with progressive deterioration of kidney function. At this point we need to reinitiate renal replacement therapy in the form of hemodialysis. Patient has consented to restart hemodialysis using her left upper arm AV fistula. We will plan to do her first treatment tomorrow. We will arrange patient to continue with outpatient hemodialysis after being discharged from the hospital this time. (2) Status post -donor kidney transplantation Is this a current diagnosis for this admission?: Yes Plan: Patient had renal artery angioplasty and stent placement unfortunately her right renal allograft continues to deteriorate and is now currently failing. Her original kidney disease is ADPKD. (3) Acute UTI Is this a current diagnosis for this admission?: Yes Plan: Continue IV ceftriaxone. (4) Leg edema Is this a current diagnosis for this admission?: Yes Plan: Continue Lasix as ordered. We will do ultrafiltration through dialysis treatment. (5) Anemia in chronic kidney disease (CKD) Is this a current diagnosis for this admission?: Yes Plan: We will check her stool for occult blood and check her iron panel. We will initiate Procrit during dialysis treatment. (6) Metabolic acidosis Is this a current diagnosis for this admission?: Yes Plan: Continue oral sodium bicarbonate for now until acidosis is resolved and until she is already on hemodialysis. (7) Hyperkalemia Is this a current diagnosis for this admission?: Yes Plan: Advised on low potassium diet. (8) Hyperphosphatemia Is this a current diagnosis for this admission?: Yes Plan: We will start the patient calcium acetate to be given with meals as ordered. Start Nephrocaps since the patient will be started on dialysis also. - Notes Notes: Thank you very much for this consultation. I will follow the patient with you. - Time Time Spent: Greater than 70 Minutes
[2018-12-22] MEDS: FOLIC ACID/VITAMIN B COMP W-C CAPSULE PO SCH (17:23)
[2018-12-22] MEDS ORDERED: (PENDING PHARMACY ID) (Ergocalciferol (Vitamin D2) [Vitamin D2] 50 MCG) PO SCH (17:38)
[2018-12-22] MEDS: CEFTRIAXONE SODIUM 1,000 MG in DEXTROSE 5%-WATER 50 ML IV SCH (18:26)
--- NOTE | 2018-12-22 19:55 | PDOC H&P ---
History of Present Illness Admission Date/PCP: 12/21/18 13:35 YOSEPH CHERY MD History of Present Illness: SANGEETA STEPHENS is a 58 year old female.She came to the emergency room for ev aluation of progressive leg swelling ,the leg swelling is affecting ambulation. She has a history of Autosomal dominant polycystic kidney disease status post kidney transplant history of bilateral unga kidney nephrectomy. She previously relocated to [place] that she was staying until recently, the kidney function of the transplanted kidney has been declining progressively. She was in the emergency room as recently as 2 days ago for evaluation of abdominal pain she was diagnosed with acute diverticulitis, she was prescribed antibiotic but she never filled the antibiotic because of her financial reasons, It seems that patient is going to require hemodialysis, she was previously on hemodialysis before she received kidney transplant ,I will consult with nephrology to initiate hemodialysis on this patient. 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, cerebral artery aneurysm Endocrine Medical History: Reports: Obesity Renal/ Medical History: Reports: End Stage Renal Disease, Nephrolithiasis, Other - ADPKD GI Medical History: Reports: Diverticulitis Musculoskeltal Medical History: Reports: Arthritis, Gout Psychiatric Medical History: Reports: Depression Hematology: Reports: Anemia - takes iron Infectious Medical History: Reports: Other Past Surgical History Past Surgical History: Reports: Renal Transplant, Other - Angioplasty of right common iliac artery and right external iliac artery Social History Lives with: Alone Smoking Status: Former Smoker Frequency of Alcohol Use: None Hx Recreational Drug Use: Yes Family History Family History: Hypertension Parental Family History Reviewed: Yes Children Family History Reviewed: Yes Sibling(s) Family History Reviewed.: Yes Medication/Allergy Home Medications: Amlodipine Besylate [Norvasc 10 mg Tablet] 10 mg PO DAILY 12/21/18 Clonidine [Catapres-Tts 1 (0.1 mg/24 Hr) Transderm Patch] 1 patch TD Q7D 12/21/18 Furosemide [Lasix 80 mg Tablet] 80 mg PO DAILY 12/21/18 Mycophenolate Sodium [Mycophenolic Acid] 720 mg PO BID 12/21/18 Prednisone [Deltasone 5 mg Tablet] 5 mg PO DAILY 12/21/18 Simethicone [Gas Relief] 125 mg PO DAILYP PRN 12/21/18 Sodium Bicarbonate [Antacid] 1,300 mg PO BID 12/21/18 Tacrolimus [Prograf] 4 mg PO Q12 12/21/18 Ergocalciferol (Vitamin D2) [Drisdol 50,000 Unit (1.25MG) Capsule] 50,000 unit PO TU@1000 12/22/18 Allergies/Adverse Reactions: Penicillins Allergy (Unknown, Verified 12/21/18 10:02) Review of Systems Constitutional: PRESENT: fatigue. ABSENT: chills, fever(s), headache(s), weight gain, weight loss Eyes: ABSENT: visual disturbances Ears: ABSENT: hearing changes Cardiovascular: ABSENT: chest pain, dyspnea on exertion, edema, orthropnea, palpitations Respiratory: ABSENT: cough, hemoptysis Gastrointestinal: ABSENT: abdominal pain, constipation, diarrhea, hematemesis, hematochezia, nausea, vomiting Genitourinary: PRESENT: dysuria. ABSENT: hematuria Musculoskeletal: ABSENT: joint swelling Integumentary: ABSENT: rash, wounds Neurological: ABSENT: abnormal gait, abnormal speech, confusion, dizziness, focal weakness, syncope Psychiatric: ABSENT: anxiety, depression, homidical ideation, suicidal ideation Endocrine: ABSENT: cold intolerance, heat intolerance, menstrual abnormalities, polydipsia, polyuria Hematologic/Lymphatic: ABSENT: easy bleeding, easy bruising, lymphadenopathy Physical Exam Vital Signs: Temp Pulse Resp BP Pulse Ox 97.8 F 85 20 111/43 L 93 12/22/18 15:56 12/22/18 15:56 12/22/18 15:56 12/22/18 15:56 12/22/18 15:56 Intake & Output 12/21/18 12/22/18 12/23/18 06:59 06:59 06:59 Intake Total 930 560 Balance 930 560 Weight 92.9 kg General appearance: PRESENT: no acute distress, well-developed, well-nourished Head exam: PRESENT: atraumatic, normocephalic Eye exam: PRESENT: conjunctiva pink, EOMI, PERRLA Ear exam: PRESENT: normal external ear exam Mouth exam: PRESENT: moist, tongue midline Neck exam: PRESENT: full ROM Respiratory exam: PRESENT: clear to auscultation staci Cardiovascular exam: PRESENT: RRR, +S1, +S2 Vascular exam: PRESENT: normal capillary refill GI/Abdominal exam: PRESENT: normal bowel sounds, soft Rectal exam: PRESENT: deferred Extremities exam: PRESENT: pedal edema Neurological exam: PRESENT: alert, CN II-XII grossly intact Psychiatric exam: PRESENT: appropriate affect, normal mood Skin exam: PRESENT: dry, intact, warm Results Laboratory Results: 12/22/18 04:58 12/22/18 04:58 12/21/18 12/21/18 12/22/18 15:02 23:11 04:58 WBC 8.1 RBC 2.84 L Hgb 8.5 L Hct 26.7 L MCV 94 MCH 29.8 MCHC 31.7 L RDW 15.1 H Plt Count 147 L Seg Neutrophils % 86.0 H Lymphocytes % 7.5 L Monocytes % 5.8 Eosinophils % 0.1 Basophils % 0.6 Absolute Neutrophils 7.0 Absolute Lymphocytes 0.6 Absolute Monocytes 0.5 Absolute Eosinophils 0.0 Absolute Basophils 0.0 Retic Count (auto) Absolute Retic Sodium Potassium Chloride Carbon Dioxide Anion Gap BUN Creatinine Est GFR ( Amer) Est GFR (Non-Af Amer) Glucose Calcium Iron TIBC % Saturation Ferritin Total Bilirubin AST ALT Alkaline Phosphatase Ammonia < 8.7 L Total Protein Albumin Vitamin B12 Folate TSH 3.13 Free T4 1.15 PTH Intact 12/22/18 12/22/18 12/22/18 04:58 11:10 11:10 WBC RBC Hgb Hct MCV MCH MCHC RDW Plt Count Seg Neutrophils % Lymphocytes % Monocytes % Eosinophils % Basophils % Absolute Neutrophils Absolute Lymphocytes Absolute Monocytes Absolute Eosinophils Absolute Basophils Retic Count (auto) 1.36 Absolute Retic 0.039 Sodium 139.4 Potassium 5.3 H Chloride 110 H Carbon Dioxide 16 L Anion Gap 13 BUN 64 H Creatinine 10.35 H Est GFR ( Amer) 5 L Est GFR (Non-Af Amer) 4 L Glucose 110 Calcium 8.4 Iron 26.1 L TIBC 182 L % Saturation 14 Ferritin 409.00 H Total Bilirubin 0.4 AST 15 ALT 11 Alkaline Phosphatase 92 Ammonia Total Protein 6.0 L Albumin 3.1 L Vitamin B12 750.0 Folate 5.73 TSH Free T4 PTH Intact 12/22/18 11:10 WBC RBC Hgb Hct MCV MCH MCHC RDW Plt Count Seg Neutrophils % Lymphocytes % Monocytes % Eosinophils % Basophils % Absolute Neutrophils Absolute Lymphocytes Absolute Monocytes Absolute Eosinophils Absolute Basophils Retic Count (auto) Absolute Retic Sodium Potassium Chloride Carbon Dioxide Anion Gap BUN Creatinine Est GFR ( Amer) Est GFR (Non-Af Amer) Glucose Calcium Iron TIBC % Saturation Ferritin Total Bilirubin AST ALT Alkaline Phosphatase Ammonia Total Protein Albumin Vitamin B12 Folate TSH Free T4 PTH Intact 1118.0 H Impressions: Venous Doppler Study 12/21/18 12:12 IMPRESSION: NO EVIDENCE DVT OR SVT IN EITHER LEG. Assessment & Plan - Diagnosis (1) Urinary tract infection Qualifiers: Urinary tract infection type: site unspecified Hematuria presence: without hematuria Qualified Code(s): N39.0 - Urinary tract infection, site not specified Is this a current diagnosis for this admission?: Yes Plan: Treat with antibiotic (2) ESRD (end stage renal disease) Is this a current diagnosis for this admission?: Yes Plan: Consult nephrology
--- NOTE | 2018-12-22 20:03 | PDOC PROGRESS REPORT ---
Subjective Progress Note for:: 12/22/18 Subjective:: Patient was seen by the bedside, she was admitted yesterday, she was seen earlier today by binding machine operator, she is scheduled for hemodialysis tomorrow, she has no IV access, she was empirically started on IV Rocephin Reason For Visit: ACUTE ON CHRONIC KIDNEY DISEASE,LOWER EXTREMITY Physical Exam Vital Signs: Temp Pulse Resp BP Pulse Ox 97.8 F 85 20 111/43 L 93 12/22/18 15:56 12/22/18 15:56 12/22/18 15:56 12/22/18 15:56 12/22/18 15:56 Intake & Output 12/21/18 12/22/18 12/23/18 06:59 06:59 06:59 Intake Total 930 560 Balance 930 560 Weight 92.9 kg General appearance: PRESENT: no acute distress Eye exam: PRESENT: PERRLA Respiratory exam: PRESENT: clear to auscultation staci Cardiovascular exam: PRESENT: +S1, +S2 GI/Abdominal exam: PRESENT: soft Neurological exam: PRESENT: alert Results Laboratory Results: 12/22/18 04:58 12/22/18 04:58 12/21/18 12/21/18 12/22/18 15:02 23:11 04:58 WBC 8.1 RBC 2.84 L Hgb 8.5 L Hct 26.7 L MCV 94 MCH 29.8 MCHC 31.7 L RDW 15.1 H Plt Count 147 L Seg Neutrophils % 86.0 H Lymphocytes % 7.5 L Monocytes % 5.8 Eosinophils % 0.1 Basophils % 0.6 Absolute Neutrophils 7.0 Absolute Lymphocytes 0.6 Absolute Monocytes 0.5 Absolute Eosinophils 0.0 Absolute Basophils 0.0 Retic Count (auto) Absolute Retic Sodium Potassium Chloride Carbon Dioxide Anion Gap BUN Creatinine Est GFR ( Amer) Est GFR (Non-Af Amer) Glucose Calcium Iron TIBC % Saturation Ferritin Total Bilirubin AST ALT Alkaline Phosphatase Ammonia < 8.7 L Total Protein Albumin Vitamin B12 Folate TSH 3.13 Free T4 1.15 PTH Intact 12/22/18 12/22/18 12/22/18 04:58 11:10 11:10 WBC RBC Hgb Hct MCV MCH MCHC RDW Plt Count Seg Neutrophils % Lymphocytes % Monocytes % Eosinophils % Basophils % Absolute Neutrophils Absolute Lymphocytes Absolute Monocytes Absolute Eosinophils Absolute Basophils Retic Count (auto) 1.36 Absolute Retic 0.039 Sodium 139.4 Potassium 5.3 H Chloride 110 H Carbon Dioxide 16 L Anion Gap 13 BUN 64 H Creatinine 10.35 H Est GFR ( Amer) 5 L Est GFR (Non-Af Amer) 4 L Glucose 110 Calcium 8.4 Iron 26.1 L TIBC 182 L % Saturation 14 Ferritin 409.00 H Total Bilirubin 0.4 AST 15 ALT 11 Alkaline Phosphatase 92 Ammonia Total Protein 6.0 L Albumin 3.1 L Vitamin B12 750.0 Folate 5.73 TSH Free T4 PTH Intact 12/22/18 11:10 WBC RBC Hgb Hct MCV MCH MCHC RDW Plt Count Seg Neutrophils % Lymphocytes % Monocytes % Eosinophils % Basophils % Absolute Neutrophils Absolute Lymphocytes Absolute Monocytes Absolute Eosinophils Absolute Basophils Retic Count (auto) Absolute Retic Sodium Potassium Chloride Carbon Dioxide Anion Gap BUN Creatinine Est GFR ( Amer) Est GFR (Non-Af Amer) Glucose Calcium Iron TIBC % Saturation Ferritin Total Bilirubin AST ALT Alkaline Phosphatase Ammonia Total Protein Albumin Vitamin B12 Folate TSH Free T4 PTH Intact 1118.0 H Impressions: Venous Doppler Study 12/21/18 12:12 IMPRESSION: NO EVIDENCE DVT OR SVT IN EITHER LEG. Assessment & Plan - Diagnosis (1) Urinary tract infection Qualifiers: Urinary tract infection type: site unspecified Hematuria presence: without hematuria Qualified Code(s): N39.0 - Urinary tract infection, site not specified Is this a current diagnosis for this admission?: Yes Plan: DC IV antibiotics, start p.o. Cipro (2) ESRD (end stage renal disease) Is this a current diagnosis for this admission?: Yes
[2018-12-23] MEDS ORDERED: EPOETIN ALFA INJ 40000 UNIT/1 ML (RENAL) IV PRN (05:00)
[2018-12-23] MEDS ORDERED: NORMAL SALINE 1000 ML 1,000 ML IV PRN (05:00)
[2018-12-23] MEDS: HEPARIN SOD (PORCINE) 5,000 UNIT/ML 1 ML SYRINGE SUBCUT SCH ×3 (05:43→21:05)
[2018-12-23 06:37] LABS: HEPATITS B SURFACE ANTIGEN Negative (Negative)
[2018-12-23 07:46] LABS: ABSOLUTE BASOPHILS # (AUTO) 0.1 10^3/uL (0.0-0.2); ABSOLUTE EOSINOPHILS # (AUTO) 0.1 10^3/uL (0.0-0.6); ABSOLUTE LYMPHOCYTES (AUTO) 1.4 10^3/uL (0.5-4.7); ABSOLUTE MONOCYTES (AUTO) 0.9 10^3/uL (0.1-1.4); ABSOLUTE NEUT (AUTO) 7.8 10^3/uL (1.7-8.2); BASOPHILS % (AUTO) 1.3 % (0-2); EOSINOPHILS % (AUTO) 1.1 % (0-6); HEMATOCRIT 27.7 % (36.0-47.0); HEMOGLOBIN 8.9 g/dL (12.0-15.5); LYMPHOCYTES % (AUTO) 13.6 % (13-45); MEAN CORPUSCULAR HEMOGLOBIN 29.9 pg (27.0-33.4); MEAN CORPUSCULAR VOLUME 94 fl (80-97); MONOCYTES % (AUTO) 8.6 % (3-13); PLATELET COUNT 170 10^3/uL (150-450); RED BLOOD COUNT 2.97 10^6/uL (3.72-5.28); RED CELL DISTRIBUTION WIDTH 15.4 % (11.5-14.0); SEGMENTED NEUTROPHILS % (AUTO) 75.4 % (42-78); TOTAL CELLS COUNTED % (AUTO) 100 %; WHITE BLOOD COUNT 10.4 10^3/uL (4.0-10.5)
[2018-12-23 08:06] LABS: ALANINE AMINOTRANSFERASE 10 U/L (9-52); ALBUMIN 3.3 g/dL (3.5-5.0); ALKALINE PHOSPHATASE 86 U/L (38-126); ANION GAP 16 (5-19); ASPARTATE AMINO TRANSFERASE 14 U/L (14-36); BILIRUBIN,DIRECT 0.4 mg/dL (0.0-0.4); BILIRUBIN,TOTAL 0.4 mg/dL (0.2-1.3); BLOOD UREA NITROGEN 76 mg/dL (7-20); CALCIUM 8.4 mg/dL (8.4-10.2); CARBON DIOXIDE 16 mmol/L (22-30); CHLORIDE 107 mmol/L (98-107); GLUCOSE 111 mg/dL (75-110); POTASSIUM 4.6 mmol/L (3.6-5.0); SODIUM 138.9 mmol/L (137-145); TOTAL PROTEIN 6.5 g/dL (6.3-8.2)
[2018-12-23 08:12] LABS: HEPATITIS B CORE AB TOT Negative (Negative)
[2018-12-23] MEDS ORDERED: IRON SUCROSE COMPLEX INJ/PF 100 MG/5 ML SDV IV PRN (09:41)
[2018-12-23] MEDS: AMLODIPINE BESYLATE 10 MG TABLET PO SCH (10:00)
[2018-12-23] MEDS: CEFTRIAXONE SODIUM 1,000 MG in DEXTROSE 5%-WATER 50 ML IV SCH (10:06)
[2018-12-23] MEDS: FUROSEMIDE 80 MG TABLET PO SCH (10:11)
[2018-12-23] MEDS: SODIUM BICARBONATE 650 MG TABLET PO SCH ×2 (10:11→17:20)
[2018-12-23] MEDS: CALCIUM ACETATE 667 MG CAPSULE PO SCH ×3 (10:11→17:20)
[2018-12-23] MEDS: PREDNISONE 5 MG TABLET PO SCH (10:12)
[2018-12-23] MEDS: TACROLIMUS ANHYDROUS 1 MG CAPSULE PO SCH ×2 (10:12→21:05)
[2018-12-23] MEDS: PARICALCITOL INJ/PF 5 MCG/1 ML SDV IV PRN (12:48)
--- NOTE | 2018-12-23 12:59 | PDOC PROGRESS REPORT ---
Subjective Progress Note for:: 12/23/18 Subjective:: Continue the patient on dialysis today. This is her first dialysis treatment after her kidney transplant failed. She said she is feeling okay and denies any nausea, vomiting or abdominal pain. We were able to cannulate her left upper arm AV fistula without much difficulty. So far she is tolerating dialysis. Reason For Visit: ACUTE ON CHRONIC KIDNEY DISEASE,LOWER EXTREMITY Physical Exam Vital Signs: Temp Pulse Resp BP Pulse Ox 97.4 F 76 16 115/51 L 99 12/23/18 11:09 12/23/18 11:09 12/23/18 11:09 12/23/18 11:09 12/23/18 11:09 Intake & Output 12/22/18 12/23/18 12/24/18 06:59 06:59 06:59 Intake Total 930 1343 300 Balance 930 1343 300 Weight 92.9 kg 94.7 kg Vitals on dialysis: Blood pressure 138/61, heart rate of 77, blood flow rate of 250 mL/min and dialysate flow rate of 600 mL/min. Exam: General appearance: PRESENT: no acute distress, cooperative, well-developed, well-nourished Head exam: PRESENT: atraumatic, normocephalic Eye exam: PRESENT: conjunctiva pink, PERRLA. ABSENT: scleral icterus Neck exam: ABSENT: JVD Respiratory exam: PRESENT: Normal breath sounds. ABSENT: crackles, rales, rhonchi, unlabored, wheezes Cardiovascular exam: PRESENT: Regular rate rhythm -+S1, +S2. ABSENT: diastolic murmur, systolic murmur GI/Abdominal exam: PRESENT: normal bowel sounds, soft. ABSENT: guarding, mass, tenderness Extremities exam: Grade 1 bilateral lower extremity pitting edema; left upper arm AV fistula currently in use. Neurological exam: PRESENT: alert, awake, oriented to person, place and time. Skin exam: PRESENT: dry, warm, Results Laboratory Results: 12/23/18 07:25 12/23/18 07:25 12/22/18 12/23/18 12/23/18 11:10 07:25 07:25 WBC 10.4 RBC 2.97 L Hgb 8.9 L Hct 27.7 L MCV 94 MCH 29.9 MCHC 32.0 RDW 15.4 H Plt Count 170 Seg Neutrophils % 75.4 Lymphocytes % 13.6 Monocytes % 8.6 Eosinophils % 1.1 Basophils % 1.3 Absolute Neutrophils 7.8 Absolute Lymphocytes 1.4 Absolute Monocytes 0.9 Absolute Eosinophils 0.1 Absolute Basophils 0.1 Sodium 138.9 Potassium 4.6 Chloride 107 Carbon Dioxide 16 L Anion Gap 16 BUN 76 H Creatinine 10.43 H Est GFR ( Amer) 5 L Est GFR (Non-Af Amer) 4 L Glucose 111 H Calcium 8.4 Iron 26.1 L TIBC 182 L % Saturation 14 Ferritin 409.00 H Total Bilirubin 0.4 AST 14 ALT 10 Alkaline Phosphatase 86 Total Protein 6.5 Albumin 3.3 L Vitamin B12 750.0 Folate 5.73 12/21/18 10:54 Clean Catch Midstream Urine Culture - Final Escherichia Coli Mixed Urogenital Yazmin Impressions: Venous Doppler Study 12/21/18 12:12 IMPRESSION: NO EVIDENCE DVT OR SVT IN EITHER LEG. Assessment & Plan - Diagnosis (1) ESRD (end stage renal disease) Is this a current diagnosis for this admission?: Yes Plan: We will do dialysis today for 2.5 hours, using the patient's left upper arm AV fistula, with 2 potassium bath, blood flow rate of 250 mL per minute, dialysate flow rate of 500-600 mL per minute, ultrafiltration 1 to 2 L as tolerated, no heparin and Procrit with 40,000 units during dialysis intravenously. Treatment plan they discussed with her dialysis nurse today. She will be monitored throughout dialysis treatment. Awaiting for media planner to arrange outpatient dialysis at [facility]. Once arranged patient can probably be discharged home for the end of the week. (2) Status post -donor kidney transplantation Is this a current diagnosis for this admission?: Yes Plan: Unfortunately her kidney transplant is now failing and she now requires to be started on renal replacement therapy. She needs to continue on her antirejection medications. (3) Acute UTI Is this a current diagnosis for this admission?: Yes Plan: Continue ciprofloxacin per Dr. Gay. (4) Leg edema Is this a current diagnosis for this admission?: Yes Plan: We will do ultrafiltration to dialysis. Increase Lasix to twice a day. (5) Anemia in chronic kidney disease (CKD) Is this a current diagnosis for this admission?: Yes Plan: Patient has low iron of 26.1 and T sat of only 14. I would give her Procrit to 40,000 units and Venofer 100 mg IV during the treatment today. (6) Metabolic acidosis Is this a current diagnosis for this admission?: Yes Plan: Hopefully dialysis will resolve this. (7) Hyperkalemia Is this a current diagnosis for this admission?: Yes Plan: Currently resolved and will hopefully be maintained by dialysis. (8) Hyperphosphatemia Is this a current diagnosis for this admission?: Yes Plan: Started on calcium acetate with meals. (9) Secondary hyperparathyroidism (of renal origin) Is this a current diagnosis for this admission?: Yes Plan: Will get paricalcitol 2 mcg IV during dialysis treatments. - Time Time with patient: 15-25 minutes
[2018-12-23 15:37] LABS: HEPATITIS C QUANTITATION HCV Not Detected IU/mL (.)
[2018-12-23] MEDS: FOLIC ACID/VITAMIN B COMP W-C CAPSULE PO SCH (17:19)
[2018-12-23] MEDS: CIPROFLOXACIN HCL 500 MG TABLET PO SCH (17:20)
--- NOTE | 2018-12-23 19:04 | PDOC PROGRESS REPORT ---
Subjective Progress Note for:: 12/23/18 Subjective:: Patient was seen by the bedside ,she had hemodialysis today ,she was seen today by the element setter Reason For Visit: ACUTE ON CHRONIC KIDNEY DISEASE,LOWER EXTREMITY Physical Exam Vital Signs: Temp Pulse Resp BP Pulse Ox 98.0 F 70 16 140/60 H 96 12/23/18 15:00 12/23/18 15:00 12/23/18 15:00 12/23/18 15:00 12/23/18 15:00 Intake & Output 12/22/18 12/23/18 12/24/18 06:59 06:59 06:59 Intake Total 930 1343 620 Output Total 1999 Balance 930 1343 -1380 Weight 92.9 kg 94.7 kg General appearance: PRESENT: no acute distress Eye exam: PRESENT: PERRLA Respiratory exam: PRESENT: clear to auscultation staci Cardiovascular exam: PRESENT: +S1, +S2 GI/Abdominal exam: PRESENT: soft Neurological exam: PRESENT: alert Results Laboratory Results: 12/23/18 07:25 12/23/18 07:25 12/23/18 12/23/18 12/23/18 07:25 07:25 17:30 WBC 10.4 RBC 2.97 L Hgb 8.9 L Hct 27.7 L MCV 94 MCH 29.9 MCHC 32.0 RDW 15.4 H Plt Count 170 Seg Neutrophils % 75.4 Lymphocytes % 13.6 Monocytes % 8.6 Eosinophils % 1.1 Basophils % 1.3 Absolute Neutrophils 7.8 Absolute Lymphocytes 1.4 Absolute Monocytes 0.9 Absolute Eosinophils 0.1 Absolute Basophils 0.1 Sodium 138.9 Potassium 4.6 Chloride 107 Carbon Dioxide 16 L Anion Gap 16 BUN 76 H Creatinine 10.43 H Est GFR ( Amer) 5 L Est GFR (Non-Af Amer) 4 L Glucose 111 H Calcium 8.4 Total Bilirubin 0.4 AST 14 ALT 10 Alkaline Phosphatase 86 Total Protein 6.5 Albumin 3.3 L Stool Occult Blood NEGATIVE 12/21/18 10:54 Clean Catch Midstream Urine Culture - Final Escherichia Coli Mixed Urogenital Yazmin Impressions: Venous Doppler Study 12/21/18 12:12 IMPRESSION: NO EVIDENCE DVT OR SVT IN EITHER LEG. Assessment & Plan - Diagnosis (1) Urinary tract infection Qualifiers: Urinary tract infection type: site unspecified Hematuria presence: without hematuria Qualified Code(s): N39.0 - Urinary tract infection, site not specified Is this a current diagnosis for this admission?: Yes Plan: continue antibiotic (2) ESRD (end stage renal disease) Is this a current diagnosis for this admission?: Yes
[2018-12-24] MEDS: HEPARIN SOD (PORCINE) 5,000 UNIT/ML 1 ML SYRINGE SUBCUT SCH ×3 (05:29→21:15)
[2018-12-24 06:36] LABS: ABSOLUTE BASOPHILS # (AUTO) 0.1 10^3/uL (0.0-0.2); ABSOLUTE EOSINOPHILS # (AUTO) 0.1 10^3/uL (0.0-0.6); ABSOLUTE LYMPHOCYTES (AUTO) 1.3 10^3/uL (0.5-4.7); ABSOLUTE NEUT (AUTO) 8.1 10^3/uL (1.7-8.2); BASOPHILS % (AUTO) 0.6 % (0-2); EOSINOPHILS % (AUTO) 0.7 % (0-6); HEMATOCRIT 24.6 % (36.0-47.0); HEMOGLOBIN 8.1 g/dL (12.0-15.5); LYMPHOCYTES % (AUTO) 12.2 % (13-45); MEAN CORPUSCULAR HEMOGLOBIN 30.2 pg (27.0-33.4); MEAN CORPUSCULAR HGB CONC 32.9 g/dL (32.0-36.0); MEAN CORPUSCULAR VOLUME 92 fl (80-97); MONOCYTES % (AUTO) 9.7 % (3-13); PLATELET COUNT 155 10^3/uL (150-450); RED BLOOD COUNT 2.68 10^6/uL (3.72-5.28); SEGMENTED NEUTROPHILS % (AUTO) 76.8 % (42-78); TOTAL CELLS COUNTED % (AUTO) 100 %; WHITE BLOOD COUNT 10.6 10^3/uL (4.0-10.5)
[2018-12-24 06:57] LABS: ALANINE AMINOTRANSFERASE 16 U/L (9-52); ALBUMIN 2.9 g/dL (3.5-5.0); ALKALINE PHOSPHATASE 76 U/L (38-126); ANION GAP 8 (5-19); ASPARTATE AMINO TRANSFERASE 12 U/L (14-36); BILIRUBIN,DIRECT 0.3 mg/dL (0.0-0.4); BILIRUBIN,TOTAL 0.3 mg/dL (0.2-1.3); CALCIUM 8.4 mg/dL (8.4-10.2); CARBON DIOXIDE 23 mmol/L (22-30); CHLORIDE 102 mmol/L (98-107); GLUCOSE 84 mg/dL (75-110); POTASSIUM 4.1 mmol/L (3.6-5.0); SODIUM 133.1 mmol/L (137-145); TOTAL PROTEIN 5.4 g/dL (6.3-8.2)
[2018-12-24 07:49] LABS: BLOOD UREA NITROGEN 45 mg/dL (7-20)
[2018-12-24] MEDS: CALCIUM ACETATE 667 MG CAPSULE PO SCH ×3 (07:50→17:24)
[2018-12-24] MEDS: CEFTRIAXONE SODIUM 1,000 MG in DEXTROSE 5%-WATER 50 ML IV SCH (10:04)
[2018-12-24] MEDS: SODIUM BICARBONATE 650 MG TABLET PO SCH ×2 (10:07→17:25)
[2018-12-24] MEDS: PREDNISONE 5 MG TABLET PO SCH (10:07)
[2018-12-24] MEDS: FUROSEMIDE 80 MG TABLET PO SCH ×2 (10:07→17:25)
[2018-12-24] MEDS: TACROLIMUS ANHYDROUS 1 MG CAPSULE PO SCH ×2 (10:07→21:15)
[2018-12-24] MEDS: AMLODIPINE BESYLATE 10 MG TABLET PO SCH (10:07)
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
[2018-12-24] MEDS: CIPROFLOXACIN HCL 500 MG TABLET PO SCH (17:25)
[2018-12-24] MEDS: FOLIC ACID/VITAMIN B COMP W-C CAPSULE PO SCH (17:25)
--- NOTE | 2018-12-24 21:10 | PDOC PROGRESS REPORT ---
Subjective Progress Note for:: 12/24/18 Subjective:: Patient was seen today by the bedside she had hemodialysis yesterday, she has social problem, she is virtually homeless at this time, discharge planning need to make arrangement for this patient to get a place to stay because she is now just started on hemodialysis due to a failed transplanted kidney Reason For Visit: ACUTE ON CHRONIC KIDNEY DISEASE,LOWER EXTREMITY Physical Exam Vital Signs: Temp Pulse Resp BP Pulse Ox 98.7 F 87 18 107/51 L 95 12/24/18 15:03 12/24/18 15:03 12/24/18 15:03 12/24/18 15:03 12/24/18 15:03 Intake & Output 12/23/18 12/24/18 12/25/18 06:59 06:59 06:59 Intake Total 1343 1340 1099 Output Total 1999 Balance 1343 -660 1099 Weight 94.7 kg 94.7 kg General appearance: PRESENT: no acute distress Eye exam: PRESENT: PERRLA Respiratory exam: PRESENT: clear to auscultation staci Cardiovascular exam: PRESENT: +S1, +S2 Neurological exam: PRESENT: alert Results Laboratory Results: 12/24/18 06:07 12/24/18 06:07 12/24/18 12/24/18 06:07 06:07 WBC 10.6 H RBC 2.68 L Hgb 8.1 L Hct 24.6 L MCV 92 MCH 30.2 MCHC 32.9 RDW 15.0 H Plt Count 155 Seg Neutrophils % 76.8 Lymphocytes % 12.2 L Monocytes % 9.7 Eosinophils % 0.7 Basophils % 0.6 Absolute Neutrophils 8.1 Absolute Lymphocytes 1.3 Absolute Monocytes 1.0 Absolute Eosinophils 0.1 Absolute Basophils 0.1 Sodium 133.1 L Potassium 4.1 Chloride 102 Carbon Dioxide 23 Anion Gap 8 BUN 45 H D Creatinine 6.92 H Est GFR ( Amer) 7 L Est GFR (Non-Af Amer) 6 L Glucose 84 Calcium 8.4 Total Bilirubin 0.3 AST 12 L ALT 16 Alkaline Phosphatase 76 Total Protein 5.4 L Albumin 2.9 L Impressions: Venous Doppler Study 12/21/18 12:12 IMPRESSION: NO EVIDENCE DVT OR SVT IN EITHER LEG. Assessment & Plan - Diagnosis (1) Urinary tract infection Qualifiers: Urinary tract infection type: site unspecified Hematuria presence: without hematuria Qualified Code(s): N39.0 - Urinary tract infection, site not specified Is this a current diagnosis for this admission?: Yes Plan: Continue p.o. antibiotic (2) ESRD (end stage renal disease) Is this a current diagnosis for this admission?: Yes (3) ADPKD (autosomal dominant polycystic kidney disease) Is this a current diagnosis for this admission?: Yes
[2018-12-25] MEDS ORDERED: IRON SUCROSE COMPLEX INJ/PF 100 MG/5 ML SDV IV PRN (05:00)
[2018-12-25] MEDS ORDERED: NORMAL SALINE 1000 ML 1,000 ML IV PRN (05:00)
[2018-12-25] MEDS ORDERED: EPOETIN ALFA INJ 20000 UNIT/1 ML VIAL (RENAL) IV PRN (05:00)
[2018-12-25] MEDS: HEPARIN SOD (PORCINE) 5,000 UNIT/ML 1 ML SYRINGE SUBCUT SCH ×3 (05:28→21:54)
[2018-12-25 06:18] LABS: ABSOLUTE BASOPHILS # (AUTO) 0.1 10^3/uL (0.0-0.2); ABSOLUTE EOSINOPHILS # (AUTO) 0.1 10^3/uL (0.0-0.6); ABSOLUTE LYMPHOCYTES (AUTO) 1.4 10^3/uL (0.5-4.7); ABSOLUTE NEUT (AUTO) 7.4 10^3/uL (1.7-8.2); BASOPHILS % (AUTO) 0.7 % (0-2); EOSINOPHILS % (AUTO) 0.8 % (0-6); HEMOGLOBIN 8.5 g/dL (12.0-15.5); LYMPHOCYTES % (AUTO) 14.1 % (13-45); MEAN CORPUSCULAR HEMOGLOBIN 30.2 pg (27.0-33.4); MEAN CORPUSCULAR HGB CONC 32.6 g/dL (32.0-36.0); MEAN CORPUSCULAR VOLUME 93 fl (80-97); MONOCYTES % (AUTO) 10.3 % (3-13); PLATELET COUNT 149 10^3/uL (150-450); RED CELL DISTRIBUTION WIDTH 15.5 % (11.5-14.0); SEGMENTED NEUTROPHILS % (AUTO) 74.1 % (42-78); TOTAL CELLS COUNTED % (AUTO) 100 %
[2018-12-25 06:37] LABS: ANION GAP 13 (5-19); BLOOD UREA NITROGEN 57 mg/dL (7-20); CALCIUM 8.8 mg/dL (8.4-10.2); CARBON DIOXIDE 25 mmol/L (22-30); CHLORIDE 100 mmol/L (98-107); GLUCOSE 83 mg/dL (75-110); PHOSPHORUS 4.4 mg/dL (2.5-4.5); POTASSIUM 4.5 mmol/L (3.6-5.0); SODIUM 137.5 mmol/L (137-145)
--- NOTE | 2018-12-25 09:27 | PDOC PROGRESS REPORT ---
Subjective Progress Note for:: 12/25/18 Subjective:: I am seeing the patient during dialysis this morning. She is doing well and has no complaints at all. She denies any more abdominal pain, nausea or vomiting. She is eating fine. Her leg swelling is a slowly improving. She is tolerating dialysis well. However her dialysis nurse informed me that her left arm AV fistula is not optimal because she is drawing a lot of clots. Reason For Visit: ACUTE ON CHRONIC KIDNEY DISEASE,LOWER EXTREMITY Physical Exam Vital Signs: Temp Pulse Resp BP Pulse Ox 98.9 F 87 17 138/65 H 98 12/25/18 03:00 12/25/18 08:00 12/25/18 03:00 12/25/18 03:00 12/25/18 03:00 Intake & Output 12/24/18 12/25/18 12/26/18 06:59 06:59 06:59 Intake Total 1340 2724 Output Total 2000 Balance -660 2724 Weight 94.7 kg 97.1 kg Vitals during dialysis: Blood pressure 119/64, heart rate of 76, blood flow rate of 250 mL/min, dialysate flow rate of 800 mL/min. Exam: General appearance: PRESENT: no acute distress, cooperative, well-developed, well-nourished Head exam: PRESENT: atraumatic, normocephalic Eye exam: PRESENT: conjunctiva pink, PERRLA. ABSENT: scleral icterus Neck exam: ABSENT: JVD Respiratory exam: PRESENT: Normal breath sounds. ABSENT: crackles, rales, rhonchi, unlabored, wheezes Cardiovascular exam: PRESENT: Regular rate rhythm -+S1, +S2. ABSENT: diastolic murmur, systolic murmur GI/Abdominal exam: PRESENT: normal bowel sounds, soft. ABSENT: guarding, mass, tenderness Extremities exam: Slightly improved grade 1 bilateral lower extremity pitting edema Neurological exam: PRESENT: alert, awake, oriented to person, place and time. Skin exam: PRESENT: dry, warm, Results Laboratory Results: 12/25/18 05:04 12/25/18 05:04 12/25/18 12/25/18 05:04 05:04 WBC 10.0 RBC 2.80 L Hgb 8.5 L Hct 26.0 L MCV 93 MCH 30.2 MCHC 32.6 RDW 15.5 H Plt Count 149 L Seg Neutrophils % 74.1 Lymphocytes % 14.1 Monocytes % 10.3 Eosinophils % 0.8 Basophils % 0.7 Absolute Neutrophils 7.4 Absolute Lymphocytes 1.4 Absolute Monocytes 1.0 Absolute Eosinophils 0.1 Absolute Basophils 0.1 Sodium 137.5 Potassium 4.5 Chloride 100 Carbon Dioxide 25 Anion Gap 13 BUN 57 H Creatinine 7.74 H Est GFR ( Amer) 6 L Est GFR (Non-Af Amer) 5 L Glucose 83 Calcium 8.8 Phosphorus 4.4 Impressions: Venous Doppler Study 12/21/18 12:12 IMPRESSION: NO EVIDENCE DVT OR SVT IN EITHER LEG. Assessment & Plan - Diagnosis (1) ESRD (end stage renal disease) Is this a current diagnosis for this admission?: Yes Plan: Awaiting for community development planner to arrange outpatient dialysis at [facility]. Once arranged patient can probably be discharged home for the end of the week. Due to the patient's social issues being homeless the community development planner is also trying to see if she can make some arrangements for her. We will do dialysis today for 3 hours, using the patient's AV fistula, with 2 potassium bath, blood flow rate of 2 50-300 mL per minute, dialysate flow rate of 600-800 mL per minute, ultrafiltration 2 to 3 L as tolerated, no heparin and Procrit with 20,000 units during dialysis intravenously. Discussed dialysis orders with her dialysis nurse. Patient will be monitored throughout dialysis treatment. I will consult Dr. Marcell Samuel for possible angiogram of her left upper arm AV fistula while here in the hospital. (2) Status post -donor kidney transplantation Is this a current diagnosis for this admission?: Yes Plan: Unfortunately her kidney transplant is now failing and she now requires to be started on renal replacement therapy. She needs to continue on her antirejection medications. (3) Acute UTI Is this a current diagnosis for this admission?: Yes Plan: Continue ciprofloxacin per Dr. Gay. (4) Leg edema Is this a current diagnosis for this admission?: Yes Plan: We will do ultrafiltration on dialysis. Increase Lasix to twice a day. (5) Anemia in chronic kidney disease (CKD) Is this a current diagnosis for this admission?: Yes Plan: Patient has low iron of 26.1 and Tsat of only 14. I would give her Procrit and Venofer 100 mg IV during hemodialysis treatments. (6) Metabolic acidosis Is this a current diagnosis for this admission?: Yes Plan: Now resolved after initiation of hemodialysis. Will discontinue oral sodium bicarbonate. (7) Hyperkalemia Is this a current diagnosis for this admission?: Yes Plan: Resolved. (8) Hyperphosphatemia Is this a current diagnosis for this admission?: Yes Plan: Started on calcium acetate with meals. (9) Secondary hyperparathyroidism (of renal origin) Is this a current diagnosis for this admission?: Yes Plan: Will get paricalcitol 2 mcg IV during dialysis treatments. (10) Homeless Is this a current diagnosis for this admission?: Yes Plan: environmental restoration planner trying to find her a place to stay. - Time Time with patient: 15-25 minutes
[2018-12-25] MEDS: PARICALCITOL INJ/PF 5 MCG/1 ML SDV IV PRN (09:50)
[2018-12-25] MEDS: CALCIUM ACETATE 667 MG CAPSULE PO SCH ×3 (10:47→17:34)
[2018-12-25] MEDS: FUROSEMIDE 80 MG TABLET PO SCH ×2 (13:15→17:34)
[2018-12-25] MEDS: PREDNISONE 5 MG TABLET PO SCH (13:15)
[2018-12-25] MEDS: AMLODIPINE BESYLATE 10 MG TABLET PO SCH (13:15)
[2018-12-25] MEDS: TACROLIMUS ANHYDROUS 1 MG CAPSULE PO SCH ×2 (13:16→22:00)
[2018-12-25] MEDS: CEFTRIAXONE SODIUM 1,000 MG in DEXTROSE 5%-WATER 50 ML IV SCH ×2 (13:17→13:45)
[2018-12-25] MEDS: CIPROFLOXACIN HCL 500 MG TABLET PO SCH (17:34)
[2018-12-25] MEDS: FOLIC ACID/VITAMIN B COMP W-C CAPSULE PO SCH (17:34)
--- NOTE | 2018-12-25 21:13 | PDOC PROGRESS REPORT ---
Subjective Progress Note for:: 12/25/18 Subjective:: Patient was seen today by the bedside she had hemodialysis yesterday, she has social problem, she is virtually homeless at this time, discharge planning need to make arrangement for this patient to get a place to stay because she is now just started on hemodialysis due to a failed transplanted kidney Reason For Visit: ACUTE ON CHRONIC KIDNEY DISEASE,LOWER EXTREMITY Physical Exam Vital Signs: Temp Pulse Resp BP Pulse Ox 97.9 F 75 18 120/48 L 92 12/25/18 15:06 12/25/18 15:06 12/25/18 15:06 12/25/18 15:06 12/25/18 15:06 Intake & Output 12/24/18 12/25/18 12/26/18 06:59 06:59 06:59 Intake Total 1340 2724 480 Output Total 2000 3000 Balance -660 2724 -2520 Weight 94.7 kg 97.1 kg General appearance: PRESENT: no acute distress Eye exam: PRESENT: PERRLA Respiratory exam: PRESENT: clear to auscultation staci Cardiovascular exam: PRESENT: +S1, +S2 GI/Abdominal exam: PRESENT: soft Results Laboratory Results: 12/25/18 05:04 12/25/18 05:04 12/25/18 12/25/18 05:04 05:04 WBC 10.0 RBC 2.80 L Hgb 8.5 L Hct 26.0 L MCV 93 MCH 30.2 MCHC 32.6 RDW 15.5 H Plt Count 149 L Seg Neutrophils % 74.1 Lymphocytes % 14.1 Monocytes % 10.3 Eosinophils % 0.8 Basophils % 0.7 Absolute Neutrophils 7.4 Absolute Lymphocytes 1.4 Absolute Monocytes 1.0 Absolute Eosinophils 0.1 Absolute Basophils 0.1 Sodium 137.5 Potassium 4.5 Chloride 100 Carbon Dioxide 25 Anion Gap 13 BUN 57 H Creatinine 7.74 H Est GFR ( Amer) 6 L Est GFR (Non-Af Amer) 5 L Glucose 83 Calcium 8.8 Phosphorus 4.4 Impressions: Venous Doppler Study 12/21/18 12:12 IMPRESSION: NO EVIDENCE DVT OR SVT IN EITHER LEG. Assessment & Plan - Diagnosis (1) Urinary tract infection Qualifiers: Urinary tract infection type: site unspecified Hematuria presence: without hematuria Qualified Code(s): N39.0 - Urinary tract infection, site not specified Is this a current diagnosis for this admission?: Yes (2) ESRD (end stage renal disease) Is this a current diagnosis for this admission?: Yes (3) ADPKD (autosomal dominant polycystic kidney disease) Is this a current diagnosis for this admission?: Yes
[2018-12-26] MEDS: HEPARIN SOD (PORCINE) 5,000 UNIT/ML 1 ML SYRINGE SUBCUT SCH ×3 (05:07→21:09)
[2018-12-26] MEDS: CALCIUM ACETATE 667 MG CAPSULE PO SCH ×3 (07:57→16:47)
[2018-12-26] MEDS: CEFTRIAXONE SODIUM 1,000 MG in DEXTROSE 5%-WATER 50 ML IV SCH (09:30)
[2018-12-26] MEDS: FUROSEMIDE 80 MG TABLET PO SCH ×2 (09:38→17:43)
[2018-12-26] MEDS: PREDNISONE 5 MG TABLET PO SCH (09:39)
[2018-12-26] MEDS: AMLODIPINE BESYLATE 10 MG TABLET PO SCH (09:39)
[2018-12-26] MEDS: TACROLIMUS ANHYDROUS 1 MG CAPSULE PO SCH ×2 (09:40→21:12)
--- NOTE | 2018-12-26 10:37 | PDOC PROGRESS REPORT ---
Subjective Progress Note for:: 12/26/18 Subjective:: Patient is currently doing well Wait for the placement issue Patient has hemodialysis Reason For Visit: ACUTE ON CHRONIC KIDNEY DISEASE,LOWER EXTREMITY Physical Exam Vital Signs: Temp Pulse Resp BP Pulse Ox 97.7 F 75 16 111/52 L 96 12/26/18 04:00 12/26/18 07:00 12/26/18 04:00 12/26/18 04:00 12/26/18 04:00 Intake & Output 12/25/18 12/26/18 12/27/18 06:59 06:59 06:59 Intake Total 2724 705 Output Total 3000 Balance 2724 -2295 Weight 97.1 kg 101.8 kg General appearance: PRESENT: no acute distress, well-developed, well-nourished Head exam: PRESENT: atraumatic, normocephalic Eye exam: PRESENT: conjunctiva pink, EOMI, PERRLA. ABSENT: scleral icterus Ear exam: PRESENT: normal external ear exam Mouth exam: PRESENT: moist, tongue midline Neck exam: PRESENT: full ROM. ABSENT: carotid bruit, JVD, lymphadenopathy, thyromegaly Respiratory exam: PRESENT: clear to auscultation staci Cardiovascular exam: PRESENT: RRR. ABSENT: diastolic murmur, rubs, systolic murmur Pulses: PRESENT: normal dorsalis pedis pul, +2 pedal pulses bilateral Vascular exam: PRESENT: normal capillary refill GI/Abdominal exam: PRESENT: normal bowel sounds, soft. ABSENT: distended, guarding, mass, organolmegaly, rebound, tenderness Rectal exam: PRESENT: deferred Neurological exam: PRESENT: alert, awake, oriented to person, oriented to place, oriented to time, oriented to situation, CN II-XII grossly intact. ABSENT: motor sensory deficit Psychiatric exam: PRESENT: appropriate affect, normal mood. ABSENT: homicidal ideation, suicidal ideation Skin exam: PRESENT: dry, intact, warm. ABSENT: cyanosis, rash Results Laboratory Results: 12/25/18 05:04 12/25/18 05:04 Impressions: Venous Doppler Study 12/21/18 12:12 IMPRESSION: NO EVIDENCE DVT OR SVT IN EITHER LEG. Assessment & Plan - Diagnosis (1) Acute on chronic renal failure Qualifiers: Acute renal failure type: unspecified Chronic kidney disease stage: unspecified stage Qualified Code(s): N17.9 - Acute kidney failure, unspecified; N18.9 - Chronic kidney disease, unspecified Is this a current diagnosis for this admission?: Yes (2) Homeless Is this a current diagnosis for this admission?: Yes (3) Leg edema Is this a current diagnosis for this admission?: Yes (4) Medical non-compliance Is this a current diagnosis for this admission?: Yes (5) Urinary tract infection Qualifiers: Urinary tract infection type: site unspecified Hematuria presence: without hematuria Qualified Code(s): N39.0 - Urinary tract infection, site not specified Is this a current diagnosis for this admission?: Yes - Time Time Spent with patient: 15-24 minutes Anticipated discharge: Other Within: Other - Plan Summary Plan Summary: Continues to current medications
[2018-12-26] MEDS: FOLIC ACID/VITAMIN B COMP W-C CAPSULE PO SCH (16:47)
[2018-12-26] MEDS: CIPROFLOXACIN HCL 500 MG TABLET PO SCH (17:43)
[2018-12-27] MEDS: HEPARIN SOD (PORCINE) 5,000 UNIT/ML 1 ML SYRINGE SUBCUT SCH ×3 (05:41→21:57)
[2018-12-27] MEDS: CALCIUM ACETATE 667 MG CAPSULE PO SCH ×3 (07:32→16:16)
[2018-12-27] MEDS: CEFTRIAXONE SODIUM 1,000 MG in DEXTROSE 5%-WATER 50 ML IV SCH (08:59)
[2018-12-27] MEDS: FUROSEMIDE 80 MG TABLET PO SCH ×2 (09:18→17:12)
[2018-12-27] MEDS: PREDNISONE 5 MG TABLET PO SCH (09:18)
[2018-12-27] MEDS: AMLODIPINE BESYLATE 10 MG TABLET PO SCH (09:19)
[2018-12-27] MEDS: TACROLIMUS ANHYDROUS 1 MG CAPSULE PO SCH ×2 (09:20→21:58)
--- NOTE | 2018-12-27 09:34 | PDOC PROGRESS REPORT ---
Subjective Progress Note for:: 12/27/18 Subjective:: Patient is currently doing well Wait for the placement issue Patient has hemodialysis Reason For Visit: ACUTE ON CHRONIC KIDNEY DISEASE,LOWER EXTREMITY Physical Exam Vital Signs: Temp Pulse Resp BP Pulse Ox 98.1 F 79 13 132/61 H 100 12/27/18 07:31 12/27/18 07:31 12/27/18 07:31 12/27/18 07:31 12/27/18 07:31 Intake & Output 12/26/18 12/27/18 12/28/18 06:59 06:59 06:59 Intake Total 705 1146 Output Total 3000 Balance -2295 1146 Weight 101.8 kg 101.7 kg General appearance: PRESENT: no acute distress, well-developed, well-nourished Head exam: PRESENT: atraumatic, normocephalic Eye exam: PRESENT: conjunctiva pink, EOMI, PERRLA. ABSENT: scleral icterus Ear exam: PRESENT: normal external ear exam Mouth exam: PRESENT: moist, tongue midline Neck exam: PRESENT: full ROM. ABSENT: carotid bruit, JVD, lymphadenopathy, thyromegaly Respiratory exam: PRESENT: clear to auscultation staci Cardiovascular exam: PRESENT: RRR. ABSENT: diastolic murmur, rubs, systolic murmur Pulses: PRESENT: normal dorsalis pedis pul, +2 pedal pulses bilateral Vascular exam: PRESENT: normal capillary refill GI/Abdominal exam: PRESENT: normal bowel sounds, soft. ABSENT: distended, guarding, mass, organolmegaly, rebound, tenderness Rectal exam: PRESENT: deferred Neurological exam: PRESENT: alert, awake, oriented to person, oriented to place, oriented to time, oriented to situation, CN II-XII grossly intact. ABSENT: mot or sensory deficit Psychiatric exam: PRESENT: appropriate affect, normal mood. ABSENT: homicidal ideation, suicidal ideation Skin exam: PRESENT: dry, intact, warm. ABSENT: cyanosis, rash Results Laboratory Results: 12/25/18 05:04 12/25/18 05:04 Impressions: Venous Doppler Study 12/21/18 12:12 IMPRESSION: NO EVIDENCE DVT OR SVT IN EITHER LEG. Assessment & Plan - Diagnosis (1) Acute on chronic renal failure Qualifiers: Acute renal failure type: unspecified Chronic kidney disease stage: unspecified stage Qualified Code(s): N17.9 - Acute kidney failure, unspecified; N18.9 - Chronic kidney disease, unspecified Is this a current diagnosis for this admission?: Yes (2) Homeless Is this a current diagnosis for this admission?: Yes (3) Leg edema Is this a current diagnosis for this admission?: Yes (4) Medical non-compliance Is this a current diagnosis for this admission?: Yes (5) Urinary tract infection Qualifiers: Urinary tract infection type: site unspecified Hematuria presence: without hematuria Qualified Code(s): N39.0 - Urinary tract infection, site not specified Is this a current diagnosis for this admission?: Yes - Time Time Spent with patient: 15-24 minutes Medications reviewed and adjusted accordingly: Yes Anticipated discharge: Other Within: Other - Plan Summary Plan Summary: Continues to current medications
[2018-12-27] MEDS ORDERED: ACETAMINOPHEN 325 MG TABLET PO PRN (11:19)
--- NOTE | 2018-12-27 14:20 | PDOC PROGRESS REPORT ---
Subjective Progress Note for:: 12/27/18 Subjective:: The patient is seen for evaluation of her left arm arteriovenous fistula which has been malfunctioning. Reason For Visit: ACUTE ON CHRONIC KIDNEY DISEASE,LOWER EXTREMITY Left arm AV fistula evaluation. Physical Exam Vital Signs: Temp Pulse Resp BP Pulse Ox 98.3 F 77 16 105/38 L 100 12/27/18 12:12 12/27/18 14:00 12/27/18 12:12 12/27/18 12:12 12/27/18 12:12 Intake & Output 12/26/18 12/27/18 12/28/18 06:59 06:59 06:59 Intake Total 705 1146 Output Total 3000 Balance -2295 1146 Weight 101.8 kg 101.7 kg Additional comments: Constitutional: Well-developed well-nourished -[place]ese lady, obese body habitus. No apparent acute distress. Eyes: Mucous membranes pink and moist, pupils equal and reactive to light. Conjunctiva normal. Cornea normal. ENT: Hearing grossly normal. External pinna normal to inspection. Edentulous. Respiratory: Normal respiratory effort. Psychiatric: Judgment, memory, insight seem normal. Mood is pleasant and appropriate. Extremities: Upper extremities show normal range of movement. Pulses present noted to the radial arteries. Capillary refill normal. No cyanosis noted. No muscle wasting noted. Left arm transposed basilic fistula noted with a thrill. Somewhat firm and midportion suggestive of partial thrombosis. Results Laboratory Results: 12/25/18 05:04 12/25/18 05:04 Impressions: Venous Doppler Study 12/21/18 12:12 IMPRESSION: NO EVIDENCE DVT OR SVT IN EITHER LEG. Assessment & Plan - Plan Summary Plan Summary: Recommendation for arteriovenous fistula angiogram and possible angioplasty. The purpose is to improve fistula function, the hope is for long-term satisfactory access use. The procedure is understood by the patient and she wishes to proceed.
[2018-12-27] MEDS: FOLIC ACID/VITAMIN B COMP W-C CAPSULE PO SCH (16:17)
[2018-12-27] MEDS: MYCOPHENOLATE MOFETIL 250 MG CAPSULE PO SCH (17:12)
[2018-12-27] MEDS: CIPROFLOXACIN HCL 500 MG TABLET PO SCH (17:12)
[2018-12-28] MEDS ORDERED: EPOETIN ALFA INJ 20000 UNIT/1 ML VIAL (RENAL) IV PRN (05:00)
[2018-12-28] MEDS ORDERED: NORMAL SALINE 1000 ML 1,000 ML IV PRN (05:00)
[2018-12-28 05:19] LABS: ABSOLUTE BASOPHILS # (AUTO) 0.1 10^3/uL (0.0-0.2); ABSOLUTE EOSINOPHILS # (AUTO) 0.1 10^3/uL (0.0-0.6); ABSOLUTE LYMPHOCYTES (AUTO) 1.3 10^3/uL (0.5-4.7); ABSOLUTE NEUT (AUTO) 8.3 10^3/uL (1.7-8.2); BASOPHILS % (AUTO) 1.2 % (0-2); EOSINOPHILS % (AUTO) 1.2 % (0-6); HEMATOCRIT 25.6 % (36.0-47.0); HEMOGLOBIN 8.3 g/dL (12.0-15.5); LYMPHOCYTES % (AUTO) 12.3 % (13-45); MEAN CORPUSCULAR HEMOGLOBIN 30.5 pg (27.0-33.4); MEAN CORPUSCULAR HGB CONC 32.3 g/dL (32.0-36.0); MEAN CORPUSCULAR VOLUME 94 fl (80-97); MONOCYTES % (AUTO) 9.4 % (3-13); PLATELET COUNT 156 10^3/uL (150-450); RED BLOOD COUNT 2.71 10^6/uL (3.72-5.28); RED CELL DISTRIBUTION WIDTH 15.2 % (11.5-14.0); SEGMENTED NEUTROPHILS % (AUTO) 75.9 % (42-78); TOTAL CELLS COUNTED % (AUTO) 100 %; WHITE BLOOD COUNT 10.9 10^3/uL (4.0-10.5)
[2018-12-28 05:44] LABS: ANION GAP 11 (5-19); BLOOD UREA NITROGEN 68 mg/dL (7-20); CALCIUM 8.9 mg/dL (8.4-10.2); CARBON DIOXIDE 25 mmol/L (22-30); CHLORIDE 99 mmol/L (98-107); GLUCOSE 94 mg/dL (75-110); POTASSIUM 4.4 mmol/L (3.6-5.0); SODIUM 134.9 mmol/L (137-145)
[2018-12-28] MEDS: HEPARIN SOD (PORCINE) 5,000 UNIT/ML 1 ML SYRINGE SUBCUT SCH ×3 (06:04→21:44)
[2018-12-28] MEDS: CALCIUM ACETATE 667 MG CAPSULE PO SCH ×3 (07:16→16:43)
--- NOTE | 2018-12-28 09:18 | PDOC PROGRESS REPORT ---
Subjective Progress Note for:: 12/28/18 Subjective:: I am seeing the patient on dialysis this morning. So far she is been stable and has no complaints at all. Her AV fistula has been able to be cannulated today. Dr. Samuel has seen her and she is scheduled for fistulogram this afternoon. So far she is tolerating dialysis without any issues. Reason For Visit: ACUTE ON CHRONIC KIDNEY DISEASE,LOWER EXTREMITY Physical Exam Vital Signs: Temp Pulse Resp BP Pulse Ox 98.5 F 71 14 119/40 L 97 12/28/18 04:00 12/28/18 07:00 12/28/18 04:00 12/28/18 04:00 12/28/18 04:00 Intake & Output 12/27/18 12/28/18 12/29/18 06:59 06:59 06:59 Intake Total 1146 847 Output Total 700 Balance 1146 147 Weight 101.7 kg 103.3 kg Vitals during dialysis: Blood pressure 159/70, heart rate of 74, blood flow rate of 250 ml/minute and dialysate flow rate of 600 mL/min. Exam: General appearance: PRESENT: no acute distress, cooperative, well-developed, well-nourished Head exam: PRESENT: atraumatic, normocephalic Eye exam: PRESENT: conjunctiva pink, PERRLA. ABSENT: scleral icterus Neck exam: ABSENT: JVD Respiratory exam: PRESENT: Normal breath sounds. ABSENT: crackles, rales, rhonchi, unlabored, wheezes Cardiovascular exam: PRESENT: Regular rate rhythm -+S1, +S2. ABSENT: diastolic murmur, systolic murmur GI/Abdominal exam: PRESENT: normal bowel sounds, soft. ABSENT: guarding, mass, tenderness Extremities exam: Grade 1 bilateral lower extremity pitting edema Neurological exam: PRESENT: alert, awake, oriented to person, place and time. Skin exam: PRESENT: dry, warm, Results Laboratory Results: 12/28/18 05:09 12/28/18 05:09 12/28/18 12/28/18 05:09 05:09 WBC 10.9 H RBC 2.71 L Hgb 8.3 L Hct 25.6 L MCV 94 MCH 30.5 MCHC 32.3 RDW 15.2 H Plt Count 156 Seg Neutrophils % 75.9 Lymphocytes % 12.3 L Monocytes % 9.4 Eosinophils % 1.2 Basophils % 1.2 Absolute Neutrophils 8.3 H Absolute Lymphocytes 1.3 Absolute Monocytes 1.0 Absolute Eosinophils 0.1 Absolute Basophils 0.1 Sodium 134.9 L Potassium 4.4 Chloride 99 Carbon Dioxide 25 Anion Gap 11 BUN 68 H Creatinine 8.45 H Est GFR ( Amer) 6 L Est GFR (Non-Af Amer) 5 L Glucose 94 Calcium 8.9 Impressions: Venous Doppler Study 12/21/18 12:12 IMPRESSION: NO EVIDENCE DVT OR SVT IN EITHER LEG. Assessment & Plan - Diagnosis (1) ESRD (end stage renal disease) Is this a current diagnosis for this admission?: Yes Plan: We will do dialysis today for 3 hours, using the patient's AV fistula, with 2 potassium bath, blood flow rate of 250-300 mL per minute, dialysate flow rate of 600 mL per minute, ultrafiltration 3 to 4 L as tolerated, no heparin and Procrit with 20,000 units during dialysis intravenously. Patient will be monitored throughout dialysis treatment today. Patient is scheduled for fistulogram this afternoon by Dr. Samuel. (2) Status post -donor kidney transplantation Is this a current diagnosis for this admission?: Yes Plan: Unfortunately her kidney transplant is now failing and she now requires to be started on renal replacement therapy. She needs to continue on her antirejection medications. (3) Acute UTI Is this a current diagnosis for this admission?: Yes Plan: Due to E. coli. Continue ciprofloxacin per Dr. Gay. (4) Leg edema Is this a current diagnosis for this admission?: Yes Plan: Slowly improving with ultrafiltration and increase in Lasix dose. (5) Anemia in chronic kidney disease (CKD) Is this a current diagnosis for this admission?: Yes Plan: Patient has low iron of 26.1 and Tsat of only 14. I would give her Procrit and Venofer 100 mg IV during hemodialysis treatments. (6) Metabolic acidosis Is this a current diagnosis for this admission?: Yes Plan: Now resolved after initiation of hemodialysis. Will discontinue oral sodium bicarbonate. (7) Hyperkalemia Is this a current diagnosis for this admission?: Yes Plan: Resolved. (8) Hyperphosphatemia Is this a current diagnosis for this admission?: Yes Plan: Started on calcium acetate with meals. (9) Secondary hyperparathyroidism (of renal origin) Is this a current diagnosis for this admission?: Yes Plan: Will get paricalcitol 2 mcg IV during dialysis treatments. (10) Homeless Is this a current diagnosis for this admission?: Yes Plan: land planner trying to find her a place to stay. - Notes Notes: Awaiting program services planner to arrange where she can stay since she is homeless and also waiting for them to arrange dialysis with [facility]. - Time Time with patient: 15-25 minutes
[2018-12-28] MEDS: CEFTRIAXONE SODIUM 1,000 MG in DEXTROSE 5%-WATER 50 ML IV SCH (09:32)
[2018-12-28] MEDS: PARICALCITOL INJ/PF 5 MCG/1 ML SDV IV PRN (09:51)
[2018-12-28] MEDS ORDERED: IRON SUCROSE COMPLEX INJ/PF 100 MG/5 ML SDV IV ONE (10:00)
[2018-12-28] MEDS ORDERED: CLONIDINE 0.1 MG/24 HR PATCH.TDWK TD SCH (10:00)
[2018-12-28] MEDS: MYCOPHENOLATE MOFETIL 250 MG CAPSULE PO SCH ×2 (12:59→18:01)
[2018-12-28] MEDS: TACROLIMUS ANHYDROUS 1 MG CAPSULE PO SCH ×2 (13:00→21:46)
[2018-12-28] MEDS: PREDNISONE 5 MG TABLET PO SCH (13:00)
[2018-12-28] MEDS: FUROSEMIDE 80 MG TABLET PO SCH ×2 (13:21→18:01)
[2018-12-28] MEDS: AMLODIPINE BESYLATE 10 MG TABLET PO SCH (13:21)
[2018-12-28] MEDS: FOLIC ACID/VITAMIN B COMP W-C CAPSULE PO SCH (15:26)
[2018-12-28] MEDS: CIPROFLOXACIN HCL 500 MG TABLET PO SCH (18:01)
--- NOTE | 2018-12-28 21:24 | PDOC PROGRESS REPORT ---
Subjective Progress Note for:: 12/28/18 Subjective:: Patient seen by the bedside, she had hemodialysis today, fistulogram today Reason For Visit: ACUTE ON CHRONIC KIDNEY DISEASE,LOWER EXTREMITY Physical Exam Vital Signs: Temp Pulse Resp BP Pulse Ox 98.8 F 87 18 122/51 L 100 12/28/18 19:57 12/28/18 19:57 12/28/18 15:27 12/28/18 19:57 12/28/18 19:57 Intake & Output 12/27/18 12/28/18 12/29/18 06:59 06:59 06:59 Intake Total 1146 847 520 Output Total 700 3400 Balance 1146 147 -2880 Weight 101.7 kg 103.3 kg General appearance: PRESENT: no acute distress Eye exam: PRESENT: PERRLA Respiratory exam: PRESENT: clear to auscultation staci Cardiovascular exam: PRESENT: +S1, +S2 GI/Abdominal exam: PRESENT: soft Neurological exam: PRESENT: alert Results Laboratory Results: 12/28/18 05:09 12/28/18 05:09 12/28/18 12/28/18 05:09 05:09 WBC 10.9 H RBC 2.71 L Hgb 8.3 L Hct 25.6 L MCV 94 MCH 30.5 MCHC 32.3 RDW 15.2 H Plt Count 156 Seg Neutrophils % 75.9 Lymphocytes % 12.3 L Monocytes % 9.4 Eosinophils % 1.2 Basophils % 1.2 Absolute Neutrophils 8.3 H Absolute Lymphocytes 1.3 Absolute Monocytes 1.0 Absolute Eosinophils 0.1 Absolute Basophils 0.1 Sodium 134.9 L Potassium 4.4 Chloride 99 Carbon Dioxide 25 Anion Gap 11 BUN 68 H Creatinine 8.45 H Est GFR ( Amer) 6 L Est GFR (Non-Af Amer) 5 L Glucose 94 Calcium 8.9 Impressions: Venous Doppler Study 12/21/18 12:12 IMPRESSION: NO EVIDENCE DVT OR SVT IN EITHER LEG. Assessment & Plan - Diagnosis (1) Urinary tract infection Qualifiers: Urinary tract infection type: site unspecified Hematuria presence: without hematuria Qualified Code(s): N39.0 - Urinary tract infection, site not specified Is this a current diagnosis for this admission?: Yes Plan: Continue antibiotic (2) ADPKD (autosomal dominant polycystic kidney disease) Is this a current diagnosis for this admission?: Yes
[2018-12-29] MEDS ORDERED: LIDOCAINE 0.5% INJ-PF (5 MG/ML) 50 ML SDV ONE (08:03)
[2018-12-29] MEDS ORDERED: MIDAZOLAM 2 MG/2 ML INJ ONE (08:04)
[2018-12-29] MEDS ORDERED: HEPARIN SOD (PORCINE) 5,000 UNIT/ML 1 ML SYRINGE ONE (08:05)
[2018-12-29] MEDS ORDERED: FENTANYL CITRATE INJ/PF 100 MCG/2 ML AMPUL ONE (08:05)
--- NOTE | 2018-12-29 10:09 | RADIOLOGY REPORT (SQ) ---
EXAM DESCRIPTION: FISTULAGRAM COMPLETED DATE/TIME: 12/29/2018 9:38 am REASON FOR STUDY: T82.858A COMPARISON: None. FLUOROSCOPY TIME: 0.2 minutes 28 images saved to PACS. TECHNIQUE: Intra-operative images acquired during surgical procedure to evaluate progress. NUMBER OF IMAGES: 28 LIMITATIONS: None. FINDINGS: Selected fluoroscopic images from upper extremity venogram and angioplasty. IMPRESSION: IMAGE(S) OBTAINED DURING PROCEDURE. COMMENT: Quality ID [id number]: Final reports for procedures using fluoroscopy that document radiation exp osure indices, or exposure time and number of fluorographic images (if radiation exposure indices are not available) Please consult full operative report of the attending physician for description of the procedure. TECHNICAL DOCUMENTATION: JOB ID: [id number] [employer]- All Rights Reserved Reading location - IP/workstation name: [email or web address]
[2018-12-29] MEDS: CALCIUM ACETATE 667 MG CAPSULE PO SCH ×3 (10:10→16:07)
--- NOTE | 2018-12-29 10:11 | Operative Report ---
Operative Report DATE OF SURGERY: 12/29/18 PREOPERATIVE DIAGNOSIS: 1. Malfunctioning arteriovenous fistula left transposed basilic. 2. End-stage renal disease on hemodialysis. 3. Failed renal transplant. 4. Multiple comorbidities. POSTOPERATIVE DIAGNOSIS: 1. Malfunctioning arteriovenous fistula left transposed basilic. 2. End-stage renal disease on hemodialysis. 3. Failed renal transplant. 4. Multiple comorbidities. OPERATION: 1. Ultrasound evaluation of left arm AV fistula. 2. Real-time access into arteriovenous fistula under ultrasound guidance. 3. Angiogram. SURGEON: REGAN QUINTERO SURGICAL CLINICAL REVIEWER: None. ANESTHESIA: Moderate Sedation TISSUE REMOVED OR ALTERED: Not applicable. COMPLICATIONS: None. ESTIMATED BLOOD LOSS: 2 mL. INTRAOPERATIVE FINDINGS: Of a well founded left arm AV fistula, somewhat hyper pulsatile. Parts difficult to feel largely because of significant adiposity. Firmness appreciated at about 18 cm on palpation. On ultrasound the fistula is uniformly large, substantially easily 1 cm in diameter. Ectasia infrequently axis segment of about 6 cm. Substantial amount of intraluminal clot noted at about 16 to 18 cm. Angiogram essentially normal with excellent inflow, no stenosis whatsoever including up to the superior vena cava. PROCEDURE: PROCEDURE: After verifying the procedure and having obtained informed consent, the patient's left arm was prepared with Chlorhexidine and draped out with sterile linen. Local anesthesia infiltrated. Ultrasound evaluation was done and the findings as noted. Access into the fistula obtained using percutaneous access under ultrasound. This was done retrograde. Percutaneous access was now obtained into the fistula ,[ antegrade], obtained about [2 cm] from the arteriovenous anastomosis using a micro puncture needle followed by micro puncture wire and then a micro puncture catheter. Angiogram demonstrated the aforementioned findings. Given the findings no intervention was indicated. The instrumentation was now withdrawn over hand pressure for 10 minutes . Dressings applied, procedure concluded. DICTATING PHYSICIAN: REGAN EAGLE M.D. cc: REGAN EAGLE M.D. ([id number]) >>
[2018-12-29] MEDS: CEFTRIAXONE SODIUM 1,000 MG in DEXTROSE 5%-WATER 50 ML IV SCH (10:35)
[2018-12-29] MEDS: MYCOPHENOLATE MOFETIL 250 MG CAPSULE PO SCH ×2 (10:36→17:22)
[2018-12-29] MEDS: AMLODIPINE BESYLATE 10 MG TABLET PO SCH (10:36)
[2018-12-29] MEDS: FUROSEMIDE 80 MG TABLET PO SCH ×2 (10:36→17:22)
[2018-12-29] MEDS: PREDNISONE 5 MG TABLET PO SCH (10:36)
[2018-12-29] MEDS: TACROLIMUS ANHYDROUS 1 MG CAPSULE PO SCH ×2 (10:38→21:18)
[2018-12-29] MEDS: ERGOCALCIFEROL (VITAMIN D2) 50000 UNIT (1.25 MG) CAPSULE PO SCH (11:00)
[2018-12-29] MEDS: HEPARIN SOD (PORCINE) 5,000 UNIT/ML 1 ML SYRINGE SUBCUT SCH ×2 (13:24→21:18)
[2018-12-29] MEDS: FOLIC ACID/VITAMIN B COMP W-C CAPSULE PO SCH (16:07)
[2018-12-29] MEDS: CIPROFLOXACIN HCL 500 MG TABLET PO SCH (17:23)
--- NOTE | 2018-12-29 19:06 | PDOC PROGRESS REPORT ---
Subjective Progress Note for:: 12/29/18 Subjective:: Patient seen by the bedside Reason For Visit: ACUTE ON CHRONIC KIDNEY DISEASE,LOWER EXTREMITY Physical Exam Vital Signs: Temp Pulse Resp BP Pulse Ox 98.2 F 83 18 109/44 L 100 12/29/18 15:31 12/29/18 15:31 12/29/18 15:31 12/29/18 15:31 12/29/18 15:31 Intake & Output 12/28/18 12/29/18 12/30/18 06:59 06:59 06:59 Intake Total 847 770 420 Output Total 700 3400 900 Balance 017 -0740 -402 Weight 103.3 kg 103.4 kg 103.4 kg General appearance: PRESENT: no acute distress Eye exam: PRESENT: PERRLA Respiratory exam: PRESENT: clear to auscultation staci Cardiovascular exam: PRESENT: +S1, +S2 GI/Abdominal exam: PRESENT: soft Results Laboratory Results: 12/28/18 05:09 12/28/18 05:09 Impressions: Venous Doppler Study 12/21/18 12:12 IMPRESSION: NO EVIDENCE DVT OR SVT IN EITHER LEG. Fistulogram 12/29/18 00:00 IMPRESSION: IMAGE(S) OBTAINED DURING PROCEDURE. Assessment & Plan - Diagnosis (1) Urinary tract infection Qualifiers: Urinary tract infection type: site unspecified Hematuria presence: without hematuria Qualified Code(s): N39.0 - Urinary tract infection, site not speci fied Is this a current diagnosis for this admission?: Yes (2) ADPKD (autosomal dominant polycystic kidney disease) Is this a current diagnosis for this admission?: Yes (3) ESRD (end stage renal disease) Is this a current diagnosis for this admission?: Yes
[2018-12-30] MEDS ORDERED: IRON SUCROSE COMPLEX INJ/PF 100 MG/5 ML SDV IV PRN (05:00)
[2018-12-30] MEDS ORDERED: NORMAL SALINE 1000 ML 1,000 ML IV PRN (05:00)
[2018-12-30] MEDS ORDERED: EPOETIN ALFA INJ 20000 UNIT/1 ML VIAL (RENAL) IV PRN (05:00)
[2018-12-30] MEDS: HEPARIN SOD (PORCINE) 5,000 UNIT/ML 1 ML SYRINGE SUBCUT SCH ×3 (06:32→21:33)
[2018-12-30 08:06] LABS: HEMATOCRIT 28.2 % (36.0-47.0); HEMOGLOBIN 9.1 g/dL (12.0-15.5); MEAN CORPUSCULAR HEMOGLOBIN 30.6 pg (27.0-33.4); MEAN CORPUSCULAR HGB CONC 32.2 g/dL (32.0-36.0); MEAN CORPUSCULAR VOLUME 95 fl (80-97); PLATELET COUNT 177 10^3/uL (150-450); RED BLOOD COUNT 2.96 10^6/uL (3.72-5.28); RED CELL DISTRIBUTION WIDTH 15.5 % (11.5-14.0); WHITE BLOOD COUNT 10.1 10^3/uL (4.0-10.5)
[2018-12-30 08:27] LABS: ANION GAP 14 (5-19); BLOOD UREA NITROGEN 61 mg/dL (7-20); CALCIUM 9.1 mg/dL (8.4-10.2); CARBON DIOXIDE 26 mmol/L (22-30); CHLORIDE 97 mmol/L (98-107); GLUCOSE 77 mg/dL (75-110); POTASSIUM 4.3 mmol/L (3.6-5.0); SODIUM 136.8 mmol/L (137-145)
[2018-12-30] MEDS: PREDNISONE 5 MG TABLET PO SCH (09:17)
[2018-12-30] MEDS: FUROSEMIDE 80 MG TABLET PO SCH ×2 (09:17→17:43)
[2018-12-30] MEDS: CALCIUM ACETATE 667 MG CAPSULE PO SCH ×3 (09:17→17:44)
[2018-12-30] MEDS: TACROLIMUS ANHYDROUS 1 MG CAPSULE PO SCH ×2 (09:18→21:33)
[2018-12-30] MEDS: MYCOPHENOLATE MOFETIL 250 MG CAPSULE PO SCH ×2 (09:18→17:44)
[2018-12-30] MEDS: AMLODIPINE BESYLATE 10 MG TABLET PO SCH (09:20)
[2018-12-30] MEDS: PARICALCITOL INJ/PF 5 MCG/1 ML SDV IV PRN (16:04)
[2018-12-30] MEDS: FOLIC ACID/VITAMIN B COMP W-C CAPSULE PO SCH (16:57)
--- NOTE | 2018-12-30 17:03 | PDOC PROGRESS REPORT ---
Subjective Progress Note for:: 12/30/18 Subjective:: Patient was seen at dialysis, undergoing dialysis without difficulty Reason For Visit: ACUTE ON CHRONIC KIDNEY DISEASE,LOWER EXTREMITY Physical Exam Vital Signs: Temp Pulse Resp BP Pulse Ox 98.4 F 79 14 105/41 L 97 12/30/18 08:00 12/30/18 14:00 12/30/18 08:00 12/30/18 08:00 12/30/18 08:00 Intake & Output 12/29/18 12/30/18 12/31/18 06:59 06:59 06:59 Intake Total 770 770 Output Total 3400 1200 Balance -2630 -430 Weight 103.4 kg 95.9 kg General appearance: PRESENT: no acute distress Eye exam: PRESENT: PERRLA Respiratory exam: PRESENT: clear to auscultation staci Cardiovascular exam: PRESENT: +S1, +S2 GI/Abdominal exam: PRESENT: soft Neurological exam: PRESENT: alert, CN II-XII grossly intact Results Laboratory Results: 12/30/18 06:50 12/30/18 06:50 12/30/18 12/30/18 06:50 06:50 WBC 10.1 RBC 2.96 L Hgb 9.1 L Hct 28.2 L MCV 95 MCH 30.6 MCHC 32.2 RDW 15.5 H Plt Count 177 Sodium 136.8 L Potassium 4.3 Chloride 97 L Carbon Dioxide 26 Anion Gap 14 BUN 61 H Creatinine 8.51 H Est GFR ( Amer) 6 L Est GFR (Non-Af Amer) 5 L Glucose 77 Calcium 9.1 Impressions: Venous Doppler Study 12/21/18 12:12 IMPRESSION: NO EVIDENCE DVT OR SVT IN EITHER LEG. Fistulogram 12/29/18 00:00 IMPRESSION: IMAGE(S) OBTAINED DURING PROCEDURE. Assessment & Plan - Diagnosis (1) Urinary tract infection Qualifiers: Urinary tract infection type: site unspecified Hematuria presence: without hematuria Qualified Code(s): N39.0 - Urinary tract infection, site not specified Is this a current diagnosis for this admission?: Yes Plan: Continue antibiotic (2) ADPKD (autosomal dominant polycystic kidney disease) Is this a current diagnosis for this admission?: Yes (3) ESRD (end stage renal disease) Is this a current diagnosis for this admission?: Yes
--- NOTE | 2018-12-30 20:11 | PDOC PROGRESS REPORT ---
Subjective Progress Note for:: 12/30/18 Subjective:: Patient was seen on dialysis. At the time she had no complaints. Vitals were stable. Patient denies chest pain, SOB, N/V/D/C. Currently waiting placement in a home. Has a spot for dialysis at [facility]. Reason For Visit: ACUTE ON CHRONIC KIDNEY DISEASE,LOWER EXTREMITY Physical Exam Vital Signs: Temp Pulse Resp BP Pulse Ox 98.4 F 79 14 105/41 L 97 12/30/18 08:00 12/30/18 14:00 12/30/18 08:00 12/30/18 08:00 12/30/18 08:00 Intake & Output 12/29/18 12/30/18 12/31/18 06:59 06:59 06:59 Intake Total 770 770 Output Total 3400 1200 Balance -2630 -430 Weight 103.4 kg 95.9 kg General appearance: PRESENT: no acute distress, well-developed, well-nourished Mouth exam: PRESENT: moist, neck supple Neck exam: ABSENT: JVD, tracheal deviation Respiratory exam: PRESENT: clear to auscultation staci. ABSENT: crackles, rales, rhonchi, wheezes Cardiovascular exam: PRESENT: +S1, +S2 GI/Abdominal exam: PRESENT: soft. ABSENT: tenderness Extremities exam: ABSENT: tenderness, +1 edema, +2 edema Musculoskeletal exam: PRESENT: normal inspection. ABSENT: tenderness Neurological exam: PRESENT: alert, awake, oriented to person, oriented to place, oriented to time, oriented to situation Psychiatric exam: PRESENT: appropriate affect, normal mood Skin exam: PRESENT: dry, intact, warm Results Laboratory Results: 12/30/18 06:50 12/30/18 06:50 12/30/18 12/30/18 06:50 06:50 WBC 10.1 RBC 2.96 L Hgb 9.1 L Hct 28.2 L MCV 95 MCH 30.6 MCHC 32.2 RDW 15.5 H Plt Count 177 Sodium 136.8 L Potassium 4.3 Chloride 97 L Carbon Dioxide 26 Anion Gap 14 BUN 61 H Creatinine 8.51 H Est GFR ( Amer) 6 L Est GFR (Non-Af Amer) 5 L Glucose 77 Calcium 9.1 Impressions: Venous Doppler Study 12/21/18 12:12 IMPRESSION: NO EVIDENCE DVT OR SVT IN EITHER LEG. Fistulogram 12/29/18 00:00 IMPRESSION: IMAGE(S) OBTAINED DURING PROCEDURE. Assessment & Plan - Diagnosis (1) ESRD (end stage renal disease) Is this a current diagnosis for this admission?: Yes Plan: Patient was seen on dialysis. At the time all vitals were stable. Patient denied any complaints. Denied chest pain or SOB. Labs and orders were reviewed with treating dialysis nurse. Removing 1L of fluid with todays dialysis. Awaiting placement in a home. Has a spot at the [facility] (2) Anemia in chronic kidney disease (CKD) Is this a current diagnosis for this admission?: Yes Plan: on procrit with dialysis (3) Hyperkalemia Is this a current diagnosis for this admission?: Yes Plan: stable (4) Hyperphosphatemia Is this a current diagnosis for this admission?: Yes Plan: on calcium acetate (5) Leg edema Is this a current diagnosis for this admission?: Yes Plan: improved (6) Secondary hyperparathyroidism (of renal origin) Is this a current diagnosis for this admission?: Yes Plan: on paricalcitol with dialysis (7) Homeless Is this a current diagnosis for this admission?: Yes Plan: Discharge planned looking for placement (8) Acute UTI Is this a current diagnosis for this admission?: Yes Plan: Recently finished miguel
[2018-12-31] MEDS: HEPARIN SOD (PORCINE) 5,000 UNIT/ML 1 ML SYRINGE SUBCUT SCH ×3 (05:57→22:46)
[2018-12-31] MEDS: CALCIUM ACETATE 667 MG CAPSULE PO SCH ×3 (10:24→16:04)
[2018-12-31] MEDS: AMLODIPINE BESYLATE 10 MG TABLET PO SCH (10:25)
[2018-12-31] MEDS: FUROSEMIDE 80 MG TABLET PO SCH ×2 (10:25→17:51)
[2018-12-31] MEDS: PREDNISONE 5 MG TABLET PO SCH (10:25)
[2018-12-31] MEDS: MYCOPHENOLATE MOFETIL 250 MG CAPSULE PO SCH ×2 (10:27→17:51)
[2018-12-31] MEDS: TACROLIMUS ANHYDROUS 1 MG CAPSULE PO SCH ×2 (10:27→22:46)
[2018-12-31] MEDS: FOLIC ACID/VITAMIN B COMP W-C CAPSULE PO SCH (16:04)
--- NOTE | 2018-12-31 19:55 | PDOC PROGRESS REPORT ---
Subjective Progress Note for:: 12/31/18 Subjective:: Patient was seen by the bedside Reason For Visit: ACUTE ON CHRONIC KIDNEY DISEASE,LOWER EXTREMITY Physical Exam Vital Signs: Temp Pulse Resp BP Pulse Ox 98.9 F 85 17 142/77 H 97 12/31/18 19:33 12/31/18 19:33 12/31/18 19:33 12/31/18 19:33 12/31/18 19:33 Intake & Output 12/30/18 12/31/18 01/01/19 06:59 06:59 06:59 Intake Total 770 980 886 Output Total 1200 1300 Balance -430 -320 886 Weight 95.9 kg 95.6 kg General appearance: PRESENT: no acute distress Eye exam: PRESENT: PERRLA Cardiovascular exam: PRESENT: +S1, +S2 GI/Abdominal exam: PRESENT: soft Neurological exam: PRESENT: alert Results Laboratory Results: 12/30/18 06:50 12/30/18 06:50 Impressions: Venous Doppler Study 12/21/18 12:12 IMPRESSION: NO EVIDENCE DVT OR SVT IN EITHER LEG. Fistulogram 12/29/18 00:00 IMPRESSION: IMAGE(S) OBTAINED DURING PROCEDURE. Assessment & Plan - Diagnosis (1) Urinary tract infection Qualifiers: Urinary tract infection type: site unspecified Hematuria presence: without hematuria Qualified Code(s): N39.0 - Urinary tract infection, site not specified Is this a current diagnosis for this admission?: Yes (2) ADPKD (autosomal dominant polycystic kidney disease) Is this a current diagnosis for this admission?: Yes (3) ESRD (end stage renal disease) Is this a current diagnosis for this admission?: Yes
[2019-01-01] MEDS ORDERED: EPOETIN ALFA INJ 20000 UNIT/1 ML VIAL (RENAL) IV PRN (05:00)
[2019-01-01] MEDS ORDERED: IRON SUCROSE COMPLEX INJ/PF 100 MG/5 ML SDV IV PRN (05:00)
[2019-01-01] MEDS ORDERED: NORMAL SALINE 1000 ML 1,000 ML IV PRN (05:00)
[2019-01-01] MEDS: HEPARIN SOD (PORCINE) 5,000 UNIT/ML 1 ML SYRINGE SUBCUT SCH ×3 (05:13→21:41)
[2019-01-01 05:39] LABS: HEMATOCRIT 27.4 % (36.0-47.0); HEMOGLOBIN 8.9 g/dL (12.0-15.5); MEAN CORPUSCULAR HGB CONC 32.6 g/dL (32.0-36.0); MEAN CORPUSCULAR VOLUME 95 fl (80-97); PLATELET COUNT 164 10^3/uL (150-450); RED BLOOD COUNT 2.88 10^6/uL (3.72-5.28); WHITE BLOOD COUNT 10.2 10^3/uL (4.0-10.5)
[2019-01-01 05:45] LABS: ANION GAP 14 (5-19); BLOOD UREA NITROGEN 50 mg/dL (7-20); CALCIUM 9.1 mg/dL (8.4-10.2); CARBON DIOXIDE 25 mmol/L (22-30); CHLORIDE 98 mmol/L (98-107); GLUCOSE 82 mg/dL (75-110); POTASSIUM 4.1 mmol/L (3.6-5.0); SODIUM 136.5 mmol/L (137-145)
[2019-01-01] MEDS: CALCIUM ACETATE 667 MG CAPSULE PO SCH ×3 (09:56→17:46)
[2019-01-01] MEDS: PARICALCITOL INJ/PF 5 MCG/1 ML SDV IV PRN (10:23)
[2019-01-01] MEDS: TACROLIMUS ANHYDROUS 1 MG CAPSULE PO SCH ×2 (12:10→21:41)
[2019-01-01] MEDS: PREDNISONE 5 MG TABLET PO SCH (12:10)
[2019-01-01] MEDS: AMLODIPINE BESYLATE 10 MG TABLET PO SCH (12:10)
[2019-01-01] MEDS: FUROSEMIDE 80 MG TABLET PO SCH ×2 (12:10→17:46)
[2019-01-01] MEDS: MYCOPHENOLATE MOFETIL 250 MG CAPSULE PO SCH ×2 (12:10→18:28)
[2019-01-01] MEDS: FOLIC ACID/VITAMIN B COMP W-C CAPSULE PO SCH (17:46)
--- NOTE | 2019-01-01 20:42 | PDOC DISCHARGE SUMMARY ---
General - Admit/Disc Date/PCP Admission Date/Primary Care Provider: 12/21/18 13:35 YOSEPH CHERY MD Discharge Date: 01/02/19 - Discharge Diagnosis (1) Urinary tract infection Is this a current diagnosis for this admission?: Yes (2) ADPKD (autosomal dominant polycystic kidney disease) Is this a current diagnosis for this admission?: Yes (3) ESRD (end stage renal disease) Is this a current diagnosis for this admission?: Yes (4) Anemia in chronic kidney disease (CKD) Is this a current diagnosis for this admission?: Yes - Additional Information Resuscitation Status: Full Code Discharge Diet: Cardiac Discharge Activity: Activity As Tolerated Prescriptions: Amlodipine Besylate [Norvasc 10 mg Tablet] 10 mg PO DAILY #90 tablet Calcium Acetate [Phoslo 667 mg Capsule] 1,334 mg PO MEALS #90 capsule Clonidine [Catapres-Tts 1 (0.1 mg/24 Hr) Transderm Patch] 1 patch TD Q7D #12 patch.tdwk Ergocalciferol (Vitamin D2) [Drisdol 50,000 unit (1.25MG) Capsule] 50,000 unit PO TU@1000 #12 capsule Folic Acid/Vitamin B Comp W-C [Nephrocaps Multiple Vitamin Capsule] 1 cap PO ACSUPPER #90 capsule Furosemide [Lasix 80 mg Tablet] 80 mg PO BID #90 tablet Mycophenolate Sodium [Mycophenolic Acid] 720 mg PO BID #180 tablet. Prednisone [Deltasone 5 mg Tablet] 5 mg PO DAILY #90 tablet Simethicone [Gas Relief] 125 mg PO DAILYP PRN #90 capsule PRN Reason: For Gas (Flatulence) Sodium Bicarbonate [Antacid] 1,300 mg PO BID #180 tablet Tacrolimus [Prograf] 4 mg PO Q12 #180 capsule Home Medications: Amlodipine Besylate [Norvasc 10 mg Tablet] 10 mg PO DAILY #90 tablet 01/01/19 Calcium Acetate [Phoslo 667 mg Capsule] 1,334 mg PO MEALS #90 capsule 01/01/19 Clonidine [Catapres-Tts 1 (0.1 mg/24 Hr) Transderm Patch] 1 patch TD Q7D #12 patch.tdwk 01/01/19 Ergocalciferol (Vitamin D2) [Drisdol 50,000 unit (1.25MG) Capsule] 50,000 unit PO TU@1000 #12 capsule 01/01/19 Folic Acid/Vitamin B Comp W-C [Nephrocaps Multiple Vitamin Capsule] 1 cap PO ACSUPPER #90 capsule 01/01/19 Furosemide [Lasix 80 mg Tablet] 80 mg PO BID #90 tablet 01/01/19 Mycophenolate Mofetil [Cellcept 250 mg Capsule] 500 mg PO BID capsule 01/01/19 Mycophenolate Sodium [Mycophenolic Acid] 720 mg PO BID #180 tablet. 01/01/19 Prednisone [Deltasone 5 mg Tablet] 5 mg PO DAILY #90 tablet 01/01/19 Simethicone [Gas Relief] 125 mg PO DAILYP PRN #90 capsule 01/01/19 Sodium Bicarbonate [Antacid] 1,300 mg PO BID #180 tablet 01/01/19 Tacrolimus [Prograf] 4 mg PO Q12 #180 capsule 01/01/19 History of Present Illness History of Present Illness: SANGEETA STEPHENS is a 58 year old female.She came to the emergency room for evaluation of progressive leg swelling ,the leg swelling is affecting ambulation. She has a history of Autosomal dominant polycystic kidney disease status post kidney transplant history of bilateral [place] kidney nephrectomy. She previously relocated to [place] that she was staying until recently, the kidney function of the transplanted kidney has been declining progressively. She was in the emergency room as recently as 2 days ago for evaluation of abdominal pain she was diagnosed with acute diverticulitis, she was prescribed antibiotic but she never filled the antibiotic because of her financial reasons, It seems that patient is going to require hemodialysis, she was previously on hemodialysis before she received kidney transplant ,I will consult with nephrology to initiate hemodialysis on this patient. Hospital Course Hospital Course: Patient was admitted for the management of acute kidney failure with a background of failed kidney transplant she was uremic she required hemodialysis on this admission she also had E. coli UTI. She was seen by the vascular surgeon she underwent the Fistulogram with repair of the fistula.She was seen by the college dean, she was started on hemodialysis on this admission she was discharged home, outpatient dialysis is arranged for the patient. There was also issue of homelessness for this patient discharge planning was involved and arrangement was made for placement Physical Exam Vital Signs: Temp Pulse Resp BP Pulse Ox 99.8 F 87 17 145/59 H 97 01/01/19 19:25 01/01/19 19:25 01/01/19 19:25 01/01/19 19:25 01/01/19 19:25 Intake & Output 12/31/18 01/01/19 01/02/19 06:59 06:59 06:59 Intake Total 980 886 740 Output Total 1300 Balance -320 886 740 Weight 95.6 kg 91.6 kg General appearance: PRESENT: no acute distress, well-developed, well-nourished Head exam: PRESENT: atraumatic, normocephalic Eye exam: PRESENT: conjunctiva pink, EOMI, PERRLA Ear exam: PRESENT: normal external ear exam Mouth exam: PRESENT: moist, tongue midline Neck exam: PRESENT: full ROM Respiratory exam: PRESENT: clear to auscultation staci Cardiovascular exam: PRESENT: RRR, +S1, +S2 Pulses: PRESENT: normal dorsalis pedis pul, +2 pedal pulses bilateral Vascular exam: PRESENT: normal capillary refill GI/Abdominal exam: PRESENT: normal bowel sounds, soft Rectal exam: PRESENT: deferred Neurological exam: PRESENT: alert, CN II-XII grossly intact Psychiatric exam: PRESENT: appropriate affect, normal mood Skin exam: PRESENT: dry, intact, warm Results Laboratory Results: 01/01/19 05:06 01/01/19 05:06 01/01/19 01/01/19 05:06 05:06 WBC 10.2 RBC 2.88 L Hgb 8.9 L Hct 27.4 L MCV 95 MCH 31.0 MCHC 32.6 RDW 16.0 H Plt Count 164 Sodium 136.5 L Potassium 4.1 Chloride 98 Carbon Dioxide 25 Anion Gap 14 BUN 50 H Creatinine 6.73 H Est GFR ( Amer) 8 L Est GFR (Non-Af Amer) 6 L Glucose 82 Calcium 9.1 Impressions: Venous Doppler Study 12/21/18 12:12 IMPRESSION: NO EVIDENCE DVT OR SVT IN EITHER LEG. Fistulogram 12/29/18 00:00 IMPRESSION: IMAGE(S) OBTAINED DURING PROCEDURE. Qualifiers - * PATIENT BEING DISCHARGED WITH ANY OF THE FOLLOWING DIAGNOSIS: No VTE patient discharged on overlapping Therapy?: Yes Stroke Pt being discharged on Anti-thrombolytic therapy?: Yes Stroke Pt being discharged on Anti-coagulation therapy?: Yes Stroke Pt being discharged on Statins?: Yes MD Pt being discharged on Aspirin therapy?: Yes MD Pt being discharged on Statins?: Yes MD Pt discharged ACEI/ARBS?: Yes Acute Heart Failure - Is this a Heart Failure Patient?: No LVEF < 40%?: No- if no continue to question #3
--- NOTE | 2019-01-01 21:30 | PDOC PROGRESS REPORT ---
Subjective Progress Note for:: 01/01/19 Subjective:: I saw the patient during dialysis this morning. She does not have any new complaints and has been relatively stable during dialysis treatment. She is feeling much better and her leg swelling is much improved. She still makes some urine. Reason For Visit: ACUTE ON CHRONIC KIDNEY DISEASE,LOWER EXTREMITY Physical Exam Vital Signs: Temp Pulse Resp BP Pulse Ox 98.4 F 79 16 112/57 L 97 12/31/18 23:40 12/31/18 23:40 12/31/18 23:40 12/31/18 23:40 12/31/18 23:40 Intake & Output 12/31/18 01/01/19 01/02/19 06:59 06:59 06:59 Intake Total 980 886 Output Total 1300 Balance -320 886 Weight 95.6 kg 91.6 kg Vitals during dialysis: Blood pressure 167/77, heart rate of 82, respiratory rate of 15, temperature of 97.9, blood flow rate of 350 mL/min, dialysate flow rate of 800/min. Exam: General appearance: PRESENT: no acute distress, cooperative, well-developed, well-nourished Head exam: PRESENT: atraumatic, normocephalic Eye exam: PRESENT: conjunctiva pink, PERRLA. ABSENT: scleral icterus Neck exam: ABSENT: JVD Respiratory exam: PRESENT: Normal breath sounds. ABSENT: crackles, rales, rhonchi, unlabored, wheezes Cardiovascular exam: PRESENT: Regular rate rhythm -+S1, +S2. ABSENT: diastolic murmur, systolic murmur GI/Abdominal exam: PRESENT: normal bowel sounds, soft. ABSENT: guarding, mass, tenderness Extremities exam: Improved bilateral lower trace lower extremity edema Neurological exam: PRESENT: alert, awake, oriented to person, place and time. Skin exam: PRESENT: dry, warm, Cardiovascular exam: PRESENT: +S1, +S2 GI/Abdominal exam: PRESENT: soft. ABSENT: tenderness Results Laboratory Results: 01/01/19 05:06 01/01/19 05:06 01/01/19 01/01/19 05:06 05:06 WBC 10.2 RBC 2.88 L Hgb 8.9 L Hct 27.4 L MCV 95 MCH 31.0 MCHC 32.6 RDW 16.0 H Plt Count 164 Sodium 136.5 L Potassium 4.1 Chloride 98 Carbon Dioxide 25 Anion Gap 14 BUN 50 H Creatinine 6.73 H Est GFR ( Amer) 8 L Est GFR (Non-Af Amer) 6 L Glucose 82 Calcium 9.1 Impressions: Venous Doppler Study 12/21/18 12:12 IMPRESSION: NO EVIDENCE DVT OR SVT IN EITHER LEG. Fistulogram 12/29/18 00:00 IMPRESSION: IMAGE(S) OBTAINED DURING PROCEDURE. Assessment & Plan - Diagnosis (1) ESRD (end stage renal disease) Is this a current diagnosis for this admission?: Yes Plan: We did dialysis today for 3 hours, using the patient's left upper arm AV fistula, with 2 potassium bath, blood flow rate of 350 mL per minute, dialysate flow rate of 800 mL per minute, ultrafiltration 500 to 1000 mL as tolerated, no heparin and Procrit with 20,000 units during dialysis intravenously. From nephrology standpoint the patient is safe and stable enough to be discharged home. Patient is awaiting placement that she does not have a place to live so the vacation planner is arranging this. [facility] has accepted the patient for chronic outpatient hemodialysis. (2) Status post -donor kidney transplantation Is this a current diagnosis for this admission?: Yes Plan: Unfortunately her kidney transplant is now failing and she now requires to be started on renal replacement therapy. She needs to continue on her antirejection medications. (3) Acute UTI Is this a current diagnosis for this admission?: Yes Plan: Due to E. coli. Treated with ciprofloxacin per Dr. Gay. (4) Leg edema Is this a current diagnosis for this admission?: Yes Plan: Resolving. Patient to continue her Lasix with current dose upon discharge. (5) Anemia in chronic kidney disease (CKD) Is this a current diagnosis for this admission?: Yes Plan: Patient has low iron of 26.1 and Tsat of only 14. Continue Procrit and Venofer 100 mg IV during hemodialysis treatments. (6) Metabolic acidosis Is this a current diagnosis for this admission?: Yes Plan: Now resolved after initiation of hemodialysis. (7) Hyperkalemia Is this a current diagnosis for this admission?: Yes Plan: Resolved. (8) Hyperphosphatemia Is this a current diagnosis for this admission?: Yes Plan: Started on calcium acetate with meals. (9) Secondary hyperparathyroidism (of renal origin) Is this a current diagnosis for this admission?: Yes Plan: Continue paricalcitol 2 mcg IV during dialysis treatments. (10) Homeless Is this a current diagnosis for this admission?: Yes Plan: digital sales planner trying to find her a place to stay. - Time Time with patient: 15-25 minutes
[2019-01-02] MEDS: HEPARIN SOD (PORCINE) 5,000 UNIT/ML 1 ML SYRINGE SUBCUT SCH ×2 (06:45→13:46)
[2019-01-02] MEDS: CALCIUM ACETATE 667 MG CAPSULE PO SCH ×2 (08:12→11:06)
[2019-01-02] MEDS: MYCOPHENOLATE MOFETIL 250 MG CAPSULE PO SCH (09:21)
[2019-01-02] MEDS: FUROSEMIDE 80 MG TABLET PO SCH (09:21)
[2019-01-02] MEDS: TACROLIMUS ANHYDROUS 1 MG CAPSULE PO SCH (09:21)
[2019-01-02] MEDS: PREDNISONE 5 MG TABLET PO SCH (09:21)
[2019-01-02] MEDS: AMLODIPINE BESYLATE 10 MG TABLET PO SCH (09:22)
[2019-01-02 12:35] VITALS: BP 130/47
== END 2019-01-02 14:38 | disposition home or self-care (01) | DRG 698 ==
LOC: ER 10:01 → EH 13:35 → 4S 15:35
PROVIDERS: ADMIT Internal Medicine; ATTEND Internal Medicine
PROC: 5A1D70Z Performance of Urinary Filtration, Intermittent, Less than 6 Hours Per Day (ICD-10-PCS; principal; 2018-12-23)
PROC: B34JZZ3 Ultrasonography of Left Upper Extremity Arteries, Intravascular (ICD-10-PCS; 2018-12-29)
PROC: B51WYZZ Fluoroscopy of Dialysis Shunt/Fistula using Other Contrast (ICD-10-PCS; 2018-12-29)
DX: T86.12 Kidney transplant failure (principal); N18.6 End stage renal disease; N17.9 Acute kidney failure, unspecified; T82.590A Other mechanical complication of surgically created arteriovenous fistula, initial encounter; N39.0 Urinary tract infection, site not specified; K57.92 Diverticulitis of intestine, part unspecified, without perforation or abscess without bleeding; E87.2 Acidosis; I12.0 Hypertensive chronic kidney disease with stage 5 chronic kidney disease or end stage renal disease; N25.81 Secondary hyperparathyroidism of renal origin; Q61.2 Polycystic kidney, adult type; D63.1 Anemia in chronic kidney disease; E87.5 Hyperkalemia; E83.39 Other disorders of phosphorus metabolism; M79.89 Other specified soft tissue disorders; I73.9 Peripheral vascular disease, unspecified; E78.5 Hyperlipidemia, unspecified; B96.20 Unspecified Escherichia coli [E. coli] as the cause of diseases classified elsewhere; Z60.2 Problems related to living alone; Z79.52 Long term (current) use of systemic steroids; Z79.899 Other long term (current) drug therapy; Z86.73 Personal history of transient ischemic attack (TIA), and cerebral infarction without residual deficits; Z90.5 Acquired absence of kidney; Z59.0 Homelessness; Z91.14 Patient's other noncompliance with medication regimen
CPT/HCPCS: 36415; 36901; 76937; 80048; 80053; 80076; 81001; 82140; 82150; 82272; 82607; 82728; 82746; 82962; 83036; 83540; 83550; 83690; 83735; 83970; 84100; 84439; 84443; 85025; 85027; 85045; 85610; 86317; 86704; 87086; 87088; 87186; 87340; 87522; 93970; 96365; 99284; C1752; C1769; J0696; J1644; J1756; J2250; J2501; J3010; J3490; J7060; J7507; J7512; J7517; Q4081; Q9967

== ENCOUNTER 2019-03-08 10:53 | Emergency (ER) | payer MEDICARE, MEDICAID ==
--- NOTE | 2019-03-08 12:27 | ER Document Report ---
ED Medical Screen (RME) - General Chief Complaint: Urinary Problem Stated Complaint: BLOOD IN URINE Time Seen by Provider: 03/08/19 12:15 Primary Care Provider: MAURICE SINGH MD [Primary Care Provider] - Follow up as needed Notes: HPI: 58-year-old female with a history of a right kidney transplant in 2013 done in [place], secondary to PID here for some right flank pain and hematuria for the last 3 days. no dysuria or frequency. she endorses compliance with the transplant meds. She has had some vomiting. Denies any fever. She last had dialysis today and felt dizzy at dialysis and had to be placed on oxygen so EMS brought her over here for further work-up. No other changes in medication or diet. Denies any complaints at this time. No syncope. no hx of this before. pcp is will MCLEOD neg to include 10 systems, unless mentioned in the hpi. PE:>>>> PHYSICAL_EXAM: GENERAL_APPEARANCE: well_nourished, alert, cooperative, no_acute_distress, no_obvious_discomfort. pleasant, obese middle aged black female, smiling, speaking in full sentences, in no sign of pain or resp distress, VITALS: reviewed, see vital signs table. HEAD: no_swelling\tenderness on the head. normocephalic. atraumatic. no cifuentes signs. no raccoons eyes. EYES: PERRL, EOMI, conjunctiva_clear. NOSE: no_nasal_discharge. MOUTH: (-)decreased moisture. THROAT: no_tonsilar_inflammation, no_airway_obstruction. no_lymphadenopathy NECK: supple, no_neck_tenderness,full rom. full strength. BACK: no_back_tenderness. CHEST_WALL: no_chest_tenderness. no overlying skin changes LUNGS: no_wheezing, ctab (-)accessory muscle use, good air exchange bilateral. HEART: normal_rate, normal_rhythm, no_murmur, ABDOMEN: normal_BS, soft, no_abd_tenderness, (-)guarding, (-)rebound, no distension or peritoneal signs. no cva ttp EXTREMITIES: strength 5/5 in all_extremities, good pulses in all_extremities, no_swelling\tenderness in the extremities, no_edema. full rom. normal gait. good pulses. brisk cap refill. good hand flagstone layer. Fistula in the left upper medial extremity that has a good palpable thrill. No active bleeding. There are dressings intact that I did not remove. NEURO: motor and sensation intact, SKIN: warm, dry, good_color, no_rash. MENTAL_STATUS: speech_clear, oriented_X_3, normal_affect, responds_appropriately to questions. MDM: I have ordered labs and initial work-up and patient will be transferred to the main ER for further work-up. I have greeted and performed a rapid initial assessment of this patient. A comprehensive ED assessment and evaluation of the patient, analysis of test results and completion of medical decision making process will be conducted by an additional ED providers. Documentation achieved through voice recording which my lead to some occasional accidental typographical errors. Extensive efforts have been made to proof read documentation to make sure these are the least as possible Temp Pulse Resp BP Pulse Ox 03/08/19 11:02 98.3 F 86 18 136/60 H 97 Category Date Time Status EKG Documentation STAT Care 03/08/19 12:28 Ordered EKG Documentation STAT Care 03/08/19 12:29 Ordered Orthostatic Vital Sign (ED) NOW Care 03/08/19 12:29 Ordered CHEST 2 VIEWS [RAD] Stat Exams 03/08/19 12:28 Ordered CBC WITH DIFF [HEME] Stat Lab 03/08/19 12:27 Ordered COMPREHENSIVE METABOLIC PANEL [CHEM] Stat Lab 03/08/19 12:27 Ordered LIPASE [CHEM] Stat Lab 03/08/19 12:28 Ordered MAGNESIUM [CHEM] Stat Lab 03/08/19 12:30 Ordered TROPONIN I [CHEM] Stat Lab 03/08/19 12:28 Ordered URINALYSIS [URIN] Stat Lab 03/08/19 12:28 Uncollected URINE CULTURE [MC] Stat Lab 03/08/19 12:28 Uncollected EKG ER ONLY [ER] Stat Oth 03/08/19 Ordered TRAVEL OUTSIDE OF THE [place] IN LAST 30 DAYS: No - Related Data Allergies/Adverse Reactions: Penicillins Allergy (Unknown, Verified 03/01/19 07:20) Past Medical History - Social History Chew tobacco use (# tins/day): No Frequency of alcohol use: None Drug Abuse: None - Past Medical History Cardiac Medical History: Reports: Hx Hypercholesterolemia, Hx Hypertension, Hx Peripheral Vascular Disease Denies: Hx Coronary Artery Disease, Hx Heart Attack Pulmonary Medical History: Denies: Hx Asthma, Hx Bronchitis, Hx COPD, Hx Pneumonia Neurological Medical History: Reports: Hx Cerebrovascular Accident - 2006. Denies: Hx Seizures Renal/ Medical History: Reports: Hx End Stage Renal Disease. Denies: Hx Peritoneal Dialysis GI Medical History: Reports: Hx Diverticulitis Musculoskeltal Medical History: Reports Hx Arthritis, Reports Hx Gout Psychiatric Medical History: Reports: Hx Depression Past Surgical History: Reports: Hx Vascular Surgery - HD fistula, Other - Angioplasty of right common iliac artery and right external iliac artery. Denies: Hx Pacemaker - Immunizations Hx Diphtheria, Pertussis, Tetanus Vaccination: No Physical Exam - Vital signs Vitals: Temp Pulse Resp BP Pulse Ox 98.3 F 86 18 136/60 H 97 03/08/19 11:02 03/08/19 11:02 03/08/19 11:02 03/08/19 11:02 03/08/19 11:02 Course - Vital Signs Vital signs: Temp Pulse Resp BP Pulse Ox 98.3 F 86 18 136/60 H 97 03/08/19 11:02 03/08/19 11:02 03/08/19 11:02 03/08/19 11:02 03/08/19 11:02 Doctor's Discharge - Discharge Referrals: MAURICE SINGH MD [Primary Care Provider] - Follow up as needed
--- NOTE | 2019-03-08 13:02 | RADIOLOGY REPORT (SQ) ---
EXAM DESCRIPTION: CHEST 2 VIEWS COMPLETED DATE/TIME: 03/08/2019 12:48 pm REASON FOR STUDY: sob, dizzy COMPARISON: 11/23/2018. EXAM PARAMETERS: NUMBER OF VIEWS: two views TECHNIQUE: Digital Frontal and Lateral radiographic views of the chest acquired. RADIATION DOSE: NA LIMITATIONS: none FINDINGS: LUNGS AND PLEURA: No opacities, masses or pneumothorax. No pleural effusion. MEDIASTINUM AND HILAR STRUCTURES: No masses or contour abnormalities. HEART AND VASCULAR STRUCTURES: Stable cardiomegaly. No evidence for failure. BONES: No acute findings. HARDWARE: Clips in the soft tissues of the left upper extremity. OTHER: No other significant finding. IMPRESSION: STABLE CARDIOMEGALY. NO ACUTE RADIOGRAPHIC FINDING IN THE CHEST. TECHNICAL DOCUMENTATION: JOB ID: [id number] [employer]- All Rights Reserved Reading location - IP/workstation name: [email or web address]
--- NOTE | 2019-03-08 14:25 | ER Document Report ---
ED General - General Chief Complaint: Urinary Problem Stated Complaint: BLOOD IN URINE Time Seen by Provider: 03/08/19 12:15 Primary Care Provider: MAURICE SINGH MD [Primary Care Provider] - Follow up tomorrow Mode of Arrival: Ambulatory Information source: Patient Notes: Patient presents complaining of blood in her urine today. Patient reports some lower pelvic pain and right flank pain. Patient denies any nausea vomiting or diarrhea. Patient denies any fever. Patient states that she did have some lightheadedness earlier but that is improved. Patient does dialyze Friday and comes here from dialysis. TRAVEL OUTSIDE OF THE [place] IN LAST 30 DAYS: No - HPI Onset: This afternoon Onset/Duration: Gradual Quality of pain: Achy Pain Level: 2 Associated symptoms: Other - Hematuria. denies: Chest pain, Nonproductive cough, Productive cough, Diarrhea, Fever, Headache, Nausea, Vomiting, Shortness of breath Exacerbated by: Denies Relieved by: Denies Similar symptoms previously: Yes Recently seen / treated by doctor: Yes - Dialysis today - Related Data Allergies/Adverse Reactions: Penicillins Allergy (Unknown, Verified 03/01/19 07:20) Past Medical History - General Information source: Patient - Social History Smoking Status: Never Smoker Chew tobacco use (# tins/day): No Frequency of alcohol use: None Drug Abuse: None Lives with: Friend Family History: Hypertension Patient has suicidal ideation: No Patient has homicidal ideation: No - Past Medical History Cardiac Medical History: Reports: Hx Hypercholesterolemia, Hx Hypertension, Hx Peripheral Vascular Disease Denies: Hx Coronary Artery Disease, Hx Heart Attack Neurological Medical History: Reports: Hx Cerebrovascular Accident - 2005. Denies: Hx Seizures Renal/ Medical History: Reports: Hx End Stage Renal Disease. Denies: Hx Peritoneal Dialysis GI Medical History: Reports: Hx Diverticulitis Musculoskeletal Medical History: Reports Hx Arthritis, Reports Hx Gout Psychiatric Medical History: Reports: Hx Depression Past Surgical History: Reports: Hx Urinary Tract Surgery - Kidney transplant, Hx Vascular Surgery - HD fistula, Other - Angioplasty of right common iliac artery and right external iliac artery. Denies: Hx Pacemaker - Immunizations Hx Diphtheria, Pertussis, Tetanus Vaccination: No Hx Pneumococcal Vaccination: 05/28/19 Review of Systems - Review of Systems Constitutional: No symptoms reported. denies: Fever, Recent illness EENT: No symptoms reported Cardiovascular: No symptoms reported, Lightheaded. denies: Chest pain, Palpitations, Dizziness Respiratory: No symptoms reported Gastrointestinal: Abdominal pain. denies: Abdomen distended, Diarrhea, Nausea, Vomiting Genitourinary: Flank pain, Hematuria. denies: Dysuria Female Genitourinary: No symptoms reported Musculoskeletal: No symptoms reported Skin: No symptoms reported Hematologic/Lymphatic: No symptoms reported Neurological/Psychological: No symptoms reported. denies: Headaches Physical Exam - Vital signs Vitals: Temp Pulse Resp BP Pulse Ox 98.3 F 86 18 136/60 H 97 03/08/19 11:02 03/08/19 11:02 03/08/19 11:02 03/08/19 11:02 03/08/19 11:02 - General General appearance: Appears well, Alert In distress: None - HEENT Head: Normocephalic, Atraumatic Eyes: Normal Nasal: Normal Mouth/Lips: Normal Mucous membranes: Normal Neck: Normal, Supple. No: Lymphadenopathy - Respiratory Respiratory status: No respiratory distress Chest status: Nontender Breath sounds: Normal. No: Rales, Rhonchi, Stridor, Wheezing Chest palpation: Normal - Cardiovascular Rhythm: Regular Heart sounds: S1 appreciated, S2 appreciated Murmur: No - Abdominal Inspection: Obese Distension: No distension Bowel sounds: Normal Tenderness: Tender - Epigastric, right upper quadrant, right lower quadrant Organomegaly: No organomegaly - Back Back: CVA tenderness - Right - Extremities General upper extremity: Normal inspection General lower extremity: Normal inspection - Neurological Neuro grossly intact: Yes Cognition: Normal Lamont Coma Scale Eye Opening: Spontaneous Lamont Coma Scale Verbal: Oriented Lamont Coma Scale Motor: Obeys Commands Lamont Coma Scale Total: 15 - Psychological Associated symptoms: Normal affect, Normal mood - Skin Skin Temperature: Warm Skin Moisture: Dry Skin Color: Normal Course - Re-evaluation Re-evalutation: 03/08/19 18:05 Patient had been seen in triage provider there had ordered labs including cardiac work-up, EKG and chest x-ray. Patient denies any abdominal pain flank pain chest pain or dyspnea symptoms. Patient with mild increase in troponin that was ordered from triage that is likely attributed to her chronic renal failure. Patient does have a UTI and presented today with a complaint of hematuria. No concern for pyelonephritis at this time or obstructive uropathy. Consulted with Dr. Klanduch guarding patient presentation and diagnostic evaluation. Agrees with plan for treatment of UTI on an outpatient basis at this time. Review of patient's previous hospital admission demonstrates that her UTI at that time grew out E. coli that was susceptible to cephalexin. 03/08/19 19:28 - Vital Signs Vital signs: Temp Pulse Resp BP Pulse Ox 98.3 F 85 16 112/59 L 98 03/08/19 18:42 03/08/19 18:42 03/08/19 18:42 03/08/19 18:42 03/08/19 18:42 - Laboratory Result Diagrams: 03/08/19 16:21 03/08/19 16:21 Laboratory results interpreted by me: 03/08/19 03/08/19 03/08/19 14:47 16:21 16:21 RBC 2.87 L Hgb 9.0 L Hct 28.1 L MCV 98 H RDW 18.6 H Lymphocytes % 11.9 L Monocytes % 14.9 H Creatinine 4.08 H Est GFR ( Amer) 14 L Est GFR (Non-Af Amer) 11 L Direct Bilirubin 0.6 H Urine Protein >=500 H Urine Glucose (UA) 50 H Urine Blood LARGE H Ur Leukocyte Esterase MODERATE H Labs- Entire Visit 03/08/19 03/08/19 03/08/19 14:47 16:21 16:21 WBC 7.8 RBC 2.87 L Hgb 9.0 L Hct 28.1 L MCV 98 H MCH 31.5 MCHC 32.1 RDW 18.6 H Plt Count 287 Seg Neutrophils % 69.8 Lymphocytes % 11.9 L Monocytes % 14.9 H Eosinophils % 2.4 Basophils % 1.0 Absolute Neutrophils 5.4 Absolute Lymphocytes 0.9 Absolute Monocytes 1.2 Absolute Eosinophils 0.2 Absolute Basophils 0.1 PT INR APTT Sodium 138.3 Potassium 3.6 Chloride 98 Carbon Dioxide 30 Anion Gap 10 BUN 13 Creatinine 4.08 H Est GFR ( Amer) 14 L Est GFR (Non-Af Amer) 11 L Glucose 92 Calcium 9.2 Magnesium Total Bilirubin 1.1 Direct Bilirubin 0.6 H Neonat Total Bilirubin Not Reportable Neonat Direct Bilirubin Not Reportable Neonat Indirect Bili Not Reportable AST 20 ALT 7 Alkaline Phosphatase 116 Troponin I Total Protein 7.3 Albumin 4.0 Lipase Urine Color DARK YELLOW Urine Appearance CLOUDY Urine pH 8.0 Ur Specific [place] 1.010 Urine Protein >=500 H Urine Glucose (UA) 50 H Urine Ketones NEGATIVE Urine Blood LARGE H Urine Nitrite NEGATIVE Urine Bilirubin NEGATIVE Urine Urobilinogen NEGATIVE Ur Leukocyte Esterase MODERATE H Urine WBC (Auto) 59 Urine RBC (Auto) >182 U Hyaline Cast (Auto) 14 Urine Bacteria (Auto) 1+ Squamous Epi Cells Auto 5 Urine Mucus (Auto) RARE Urine Ascorbic Acid NEGATIVE 03/08/19 03/08/19 03/08/19 16:21 16:21 16:21 WBC RBC Hgb Hct MCV MCH MCHC RDW Plt Count Seg Neutrophils % Lymphocytes % Monocytes % Eosinophils % Basophils % Absolute Neutrophils Absolute Lymphocytes Absolute Monocytes Absolute Eosinophils Absolute Basophils PT 13.9 INR 1.07 APTT 32.0 Sodium Potassium Chloride Carbon Dioxide Anion Gap BUN Creatinine Est GFR ( Amer) Est GFR (Non-Af Amer) Glucose Calcium Magnesium 1.8 Total Bilirubin Direct Bilirubin Neonat Total Bilirubin Neonat Direct Bilirubin Neonat Indirect Bili AST ALT Alkaline Phosphatase Troponin I 0.080 Total Protein Albumin Lipase 68.5 Urine Color Urine Appearance Urine pH Ur Specific [place] Urine Protein Urine Glucose (UA) Urine Ketones Urine Blood Urine Nitrite Urine Bilirubin Urine Urobilinogen Ur Leukocyte Esterase Urine WBC (Auto) Urine RBC (Auto) U Hyaline Cast (Auto) Urine Bacteria (Auto) Squamous Epi Cells Auto Urine Mucus (Auto) Urine Ascorbic Acid - Diagnostic Test Radiology reviewed: Reports reviewed Discharge - Discharge Clinical Impression: ESRD (end stage renal disease) Urinary tract infection Qualifiers: Urinary tract infection type: site unspecified Hematuria presence: with hematuria Qualified Code(s): N39.0 - Urinary tract infection, site not specified Condition: Stable Disposition: HOME, SELF-CARE Instructions: Cephalexin ([facility]), Rocephin ([facility]), Urinary Anesthetic Agent ([facility]), Urinary Tract Infection ([facility]) Additional Instructions: Return immediately for any new or worsening symptoms Followup with your primary care provider, call tomorrow to make a followup appointment Urine culture is pending, will call if you need any different treatment Prescriptions: Cephalexin [Cephalexin 250 MG Tablet] 250 mg PO BID #14 tablet Referrals: MAURICE SINGH MD [Primary Care Provider] - Follow up tomorrow
[2019-03-08 15:17] LABS: APPEARANCE,URINE CLOUDY; BILIRUBIN,URINE NEGATIVE (NEGATIVE); GLUCOSE, URINE 50 mg/dL (NEGATIVE); KETONES,URINE NEGATIVE (NEGATIVE); LEUKOCYTE ESTERASE,URINE MODERATE (NEGATIVE); NITRITE,URINE NEGATIVE (NEGATIVE); PROTEIN,URINE >=500 mg/dL (NEGATIVE); UROBILINOGEN,URINE NEGATIVE mg/dL (<2.0)
[2019-03-08 15:24] LABS: COLOR,URINE DARK YELLOW
[2019-03-08 16:32] LABS: ABSOLUTE BASOPHILS # (AUTO) 0.1 10^3/uL (0.0-0.2); ABSOLUTE EOSINOPHILS # (AUTO) 0.2 10^3/uL (0.0-0.6); ABSOLUTE LYMPHOCYTES (AUTO) 0.9 10^3/uL (0.5-4.7); ABSOLUTE MONOCYTES (AUTO) 1.2 10^3/uL (0.1-1.4); ABSOLUTE NEUT (AUTO) 5.4 10^3/uL (1.7-8.2); EOSINOPHILS % (AUTO) 2.4 % (0-6); HEMATOCRIT 28.1 % (36.0-47.0); LYMPHOCYTES % (AUTO) 11.9 % (13-45); MEAN CORPUSCULAR HEMOGLOBIN 31.5 pg (27.0-33.4); MEAN CORPUSCULAR HGB CONC 32.1 g/dL (32.0-36.0); MEAN CORPUSCULAR VOLUME 98 fl (80-97); MONOCYTES % (AUTO) 14.9 % (3-13); PLATELET COUNT 287 10^3/uL (150-450); RED BLOOD COUNT 2.87 10^6/uL (3.72-5.28); RED CELL DISTRIBUTION WIDTH 18.6 % (11.5-14.0); SEGMENTED NEUTROPHILS % (AUTO) 69.8 % (42-78); TOTAL CELLS COUNTED % (AUTO) 100 %; WHITE BLOOD COUNT 7.8 10^3/uL (4.0-10.5)
[2019-03-08 16:45] LABS: INTERNATIONAL RATION (INR) 1.07; PROTHROMBIN TIME 13.9 SEC (11.4-15.4)
[2019-03-08 16:56] LABS: ALKALINE PHOSPHATASE 116 U/L (38-126); ANION GAP 10 (5-19); ASPARTATE AMINO TRANSFERASE 20 U/L (14-36); BILIRUBIN,DIRECT 0.6 mg/dL (0.0-0.4); BILIRUBIN,TOTAL 1.1 mg/dL (0.2-1.3); BLOOD UREA NITROGEN 13 mg/dL (7-20); CALCIUM 9.2 mg/dL (8.4-10.2); CARBON DIOXIDE 30 mmol/L (22-30); CHLORIDE 98 mmol/L (98-107); GLUCOSE 92 mg/dL (75-110); POTASSIUM 3.6 mmol/L (3.6-5.0); TOTAL PROTEIN 7.3 g/dL (6.3-8.2)
[2019-03-08] MEDS ORDERED: LIDOCAINE 1% INJ (10 MG/ML) 10 ML MDV INJ ONE (18:04)
[2019-03-08] MEDS ORDERED: CEFTRIAXONE INJ 1000 MG VIAL IM ONE (18:04)
[2019-03-08 18:43] VITALS: BP 112/59
--- NOTE | 2019-03-09 09:48 | EKG REPORT ---
SEVERITY:- ABNORMAL ECG - SINUS RHYTHM VENTRICULAR PREMATURE COMPLEX PROBABLE LEFT ATRIAL ABNORMALITY LVH WITH SECONDARY REPOLARIZATION ABNORMALITY : Confirmed by: Elaina Forman 09-Mar-2019 09:46:59
== END 2019-03-08 18:54 | disposition home or self-care (01) ==
LOC: ER 10:53
DX: N39.0 Urinary tract infection, site not specified (principal); I12.0 Hypertensive chronic kidney disease with stage 5 chronic kidney disease or end stage renal disease; N18.6 End stage renal disease; R10.31 Right lower quadrant pain; R10.13 Epigastric pain; R10.11 Right upper quadrant pain; E66.9 Obesity, unspecified; E78.00 Pure hypercholesterolemia, unspecified; Z86.73 Personal history of transient ischemic attack (TIA), and cerebral infarction without residual deficits; Z88.0 Allergy status to penicillin
CPT/HCPCS: 93005; 36415; 87086; 83690; 83735; 85025; 85610; 85730; 80053; 81001; 84484; 71046; 93010; J0696; 96372; 99284

== ENCOUNTER 2019-03-15 04:11 | Inpatient (IN) | payer MEDICARE, MEDICAID ==
[2019-03-15] MEDS ORDERED: NITROGLYCERIN 0.4 MG/TAB 25 TAB/BOTTLE ONE (04:22)
[2019-03-15 04:57] LABS: ABSOLUTE BASOPHILS # (AUTO) 0.2 10^3/uL (0.0-0.2); ABSOLUTE EOSINOPHILS # (AUTO) 0.1 10^3/uL (0.0-0.6); ABSOLUTE MONOCYTES (AUTO) 1.5 10^3/uL (0.1-1.4); ABSOLUTE NEUT (AUTO) 11.4 10^3/uL (1.7-8.2); BASOPHILS % (AUTO) 1.1 % (0-2); EOSINOPHILS % (AUTO) 0.5 % (0-6); HEMOGLOBIN 8.7 g/dL (12.0-15.5); LYMPHOCYTES % (AUTO) 13.2 % (13-45); MEAN CORPUSCULAR HEMOGLOBIN 31.5 pg (27.0-33.4); MEAN CORPUSCULAR HGB CONC 31.2 g/dL (32.0-36.0); MEAN CORPUSCULAR VOLUME 101 fl (80-97); MONOCYTES % (AUTO) 9.7 % (3-13); PLATELET COUNT 285 10^3/uL (150-450); RED BLOOD COUNT 2.77 10^6/uL (3.72-5.28); RED CELL DISTRIBUTION WIDTH 17.6 % (11.5-14.0); SEGMENTED NEUTROPHILS % (AUTO) 75.5 % (42-78); TOTAL CELLS COUNTED % (AUTO) 100 %; WHITE BLOOD COUNT 15.1 10^3/uL (4.0-10.5)
[2019-03-15 05:02] LABS: PROTHROMBIN TIME 13.2 SEC (11.4-15.4)
[2019-03-15 05:05] LABS: VENOUS BLOOD BASE EXCESS 0.7 mmol/L; VENOUS BLOOD HCO3 26.6 mmol/L (20-32); VENOUS BLOOD PCO2 49.2 mmHg (35-63); VENOUS BLOOD PH 7.35 (7.30-7.42)
[2019-03-15 05:21] LABS: ALBUMIN 4.2 g/dL (3.5-5.0); ALKALINE PHOSPHATASE 118 U/L (38-126); ANION GAP 16 (5-19); ASPARTATE AMINO TRANSFERASE 25 U/L (14-36); BILIRUBIN,DIRECT 0.6 mg/dL (0.0-0.4); BILIRUBIN,TOTAL 0.8 mg/dL (0.2-1.3); BLOOD UREA NITROGEN 46 mg/dL (7-20); CARBON DIOXIDE 24 mmol/L (22-30); CHLORIDE 102 mmol/L (98-107); GLUCOSE 121 mg/dL (75-110); POTASSIUM 3.8 mmol/L (3.6-5.0); TOTAL PROTEIN 7.4 g/dL (6.3-8.2)
[2019-03-15] MEDS ORDERED: FUROSEMIDE INJ/PF 40 MG/4 ML SDV IV ONE (05:24)
--- NOTE | 2019-03-15 05:26 | RADIOLOGY REPORT (SQ) ---
EXAM DESCRIPTION: XR CHEST 1 VIEW COMPLETED DATE/TME: 03/15/2019 00:00 CLINICAL HISTORY: 58 years Female, SOB COMPARISON:Mar 08 2019 NUMBER OF VIEWS/TECHNIQUE: 1/AP FINDINGS: Moderate mixed airspace and interstitial opacity, left more than right. Small bibasilar opacity-effusion. Mildly enlarged cardiac silhouette. Atherosclerosis. Adequate lung volume, mildly enlarged cardiac silhouette, and intact bony thorax. IMPRESSION: Moderate mixed interstitial and airpace opacities. Differential diagnosis includes pulmonary edema/CHF, multifocal pneumonia, and chronic interstitial lung disease.
--- NOTE | 2019-03-15 05:42 | ER Document Report ---
Entered by TRINI WINTER SCRIBE 03/15/19 0422 Acting as scribe for:MARLENE ORTIZ DO ED Respiratory Problem - General Chief Complaint: Breathing Difficulty Stated Complaint: DIFFICULTY BREATHING Time Seen by Provider: 03/15/19 04:19 Primary Care Provider: MAURICE SINGH MD [Primary Care Provider] - Follow up as needed Information source: Patient Notes: Patient is a 58 year old female that presents to the emergency department today with complaints of shortness of breath. Patient is a Friday, Friday, Friday, dialysis stating she is due for dialysis in a few hours. Patient states she had a full dialysis treatment on Friday. EMS reports that the fire department was the first to arrive on scene and they reported a room air oxygen saturation of 86%. She was put on a nonrebreather and her oxygen saturation jane to 98%. TRAVEL OUTSIDE OF THE [place] IN LAST 30 DAYS: No - Related Data Allergies/Adverse Reactions: Penicillins Allergy (Unknown, Verified 03/01/19 07:20) Past Medical History - General Information source: Patient - Social History Smoking Status: Unknown if Ever Smoked Cigarette use (# per day): No Frequency of alcohol use: None Drug Abuse: None Lives with: Family Family History: Reviewed & Not Pertinent, Hypertension - Past Medical History Cardiac Medical History: Reports: Hx Hypercholesterolemia, Hx Hypertension, Hx Peripheral Vascular Disease Neurological Medical History: Reports: Hx Cerebrovascular Accident - 2005 Renal/ Medical History: Reports: Hx End Stage Renal Disease GI Medical History: Reports: Hx Diverticulitis Musculoskeletal Medical History: Reports Hx Arthritis, Reports Hx Gout Psychiatric Medical History: Reports: Hx Depression Past Surgical History: Reports: Hx Urinary Tract Surgery - Kidney transplant, Hx Vascular Surgery - HD fistula, Other - Angioplasty of right common iliac artery and right external iliac artery - Immunizations Hx Diphtheria, Pertussis, Tetanus Vaccination: No Hx Pneumococcal Vaccination: 05/28/19 Review of Systems - Review of Systems Constitutional: No symptoms reported EENT: No symptoms reported Cardiovascular: No symptoms reported Respiratory: See HPI, Short of breath Gastrointestinal: No symptoms reported Genitourinary: No symptoms reported Female Genitourinary: No symptoms reported Musculoskeletal: No symptoms reported Skin: No symptoms reported Hematologic/Lymphatic: No symptoms reported Neurological/Psychological: No symptoms reported -: Yes All other systems reviewed and negative Physical Exam - Vital signs Vitals: Pulse Ox 99 03/15/19 04:13 Interpretation: Hypertensive, Tachycardic, Hypoxic, Tachypneic - General General appearance: Alert In distress: Moderate - Respiratory Respiratory status: Respiratory distress, Retractions, Tachypnea Breath sounds: Other - Coarse rales bilaterally - Cardiovascular Rhythm: Regular, Tachycardia - Back Back: Normal - Extremities General upper extremity: Normal inspection, Normal ROM General lower extremity: Normal inspection, Normal ROM - Neurological Neuro grossly intact: Yes Cognition: Normal Orientation: AAOx4 Lamont Coma Scale Eye Opening: Spontaneous Lamont Coma Scale Verbal: Oriented Lamont Coma Scale Motor: Obeys Commands Lamont Coma Scale Total: 15 Cranial nerves: Normal Motor strength normal: LUE, RUE, LLE, RLE - Psychological Associated symptoms: Normal affect, Normal mood - Skin Skin Temperature: Cool Skin Moisture: Diaphoretic Course - Re-evaluation Re-evalutation: 03/15/19 04:36 improved respiratory status 03/15/19 05:25 Patient is a 58-year-old who comes in with difficulty breathing, fluid overload by exam and x-ray. Patient is dialyzed Friday. States that she went to dialysis Friday and received full dialysis. Afebrile here. No elevation of potassium. Attempted to call nephrology but they are not going to be available until probably 7 AM. 03/15/19 05:[address] Singh, the patient's primary care doctor. States that if the patient cannot breathe and is on BiPAP with fluid overload, she will need dialysis. He is unable to admit her until nephrology is involved. Explained that this will not be likely until at least 7 AM. Patient will have to wait until that time to ensure the dialysis is available. Per charge nurse, there are dialysis beds available. Patient is otherwise resting comfortably on BiPAP. Lasix have been given. 06:[address] Cho pending discussion with nephrology regarding emergent need for dialysis/possible admission. - Vital Signs Vital signs: Temp Pulse Resp BP Pulse Ox 98.6 F 108 H 25 H 151/114 H 100 03/15/19 04:58 03/15/19 04:58 03/15/19 04:58 03/15/19 04:58 03/15/19 04:43 - Laboratory Result Diagrams: 03/15/19 04:29 03/15/19 04:29 Laboratory results interpreted by me: 03/15/19 03/15/19 03/15/19 04:29 04:29 05:04 WBC 15.1 H RBC 2.77 L Hgb 8.7 L Hct 28.0 L MCV 101 H MCHC 31.2 L RDW 17.6 H Absolute Neutrophils 11.4 H Absolute Monocytes 1.5 H BUN 46 H Creatinine 9.16 H Est GFR ( Amer) 5 L Est GFR (Non-Af Amer) 4 L Glucose 121 H POC Glucose 119 H Direct Bilirubin 0.6 H Critical Care Note - Critical Care Note Total time excluding time spent on procedures (mins): 35 - Evaluation and michael gement of respiratory distress, initiation of BiPAP, multiple re-evaluations, treatment of fluid overload in a dialysis patient, attempted contact of specialist, contacting her primary care doctor Discharge - Discharge Clinical Impression: ESRD (end stage renal disease), Hypertensive crisis Fluid overload Qualifiers: Hypervolemia type: unspecified Qualified Code(s): E87.70 - Fluid overload, unspecified Condition: Stable Disposition: OTHER Referrals: MAURICE SINGH MD [Primary Care Provider] - Follow up as needed Scribe Attestation: 03/15/19 05:41 I personally performed the services described in the documentation, reviewed and edited the documentation which was dictated to the scribe in my presence, and it accurately records my words and actions. I personally performed the services described in the documentation, reviewed and edited the documentation which was dictated to the scribe in my presence, and it accurately records my words and actions.
--- NOTE | 2019-03-15 07:02 | EKG REPORT ---
SEVERITY:- ABNORMAL ECG - SINUS RHYTHM ABNRM R PROG, CONSIDER ASMI OR LEAD PLACEMENT LVH : Confirmed by: Elaina Forman 15-Mar-2019 07:01:31
--- NOTE | 2019-03-15 08:54 | ER Document Report ---
Doctor's Note Notes: 03/15/19 08:53 I did discuss case with Dr. Dukes and she is agreeable to dialyzing the patient this morning. I discussed the case with Dr. Gay, and he is agreeable to admit the patient after she is dialyzed. At this time there are no ICU beds available, and she would have to be dialyzed in the ICU since she is on BiPAP. For this reason she was stay in the emergency room on BiPAP getting dialysis. Her chest x-ray is suspicious for infiltrates, her white blood cell count and ANC of double what they were last time it was checked. She does need a chest x- ray after she completes dialysis to confirm that this was all fluid overload and not pneumonia.
[2019-03-15] MEDS ORDERED: ONDANSETRON HCL INJ/PF 4 MG/2 ML SDV IV ONE (11:58)
[2019-03-15] MEDS ORDERED: MORPHINE SULFATE 10 MG/ML INJ IV ONE (11:58)
[2019-03-15 12:20] LABS: APPEARANCE,URINE SLIGHTLY-CLOUDY; BILIRUBIN,URINE NEGATIVE (NEGATIVE); COLOR,URINE YELLOW; GLUCOSE, URINE NEGATIVE (NEGATIVE); KETONES,URINE NEGATIVE (NEGATIVE); LEUKOCYTE ESTERASE,URINE MODERATE (NEGATIVE); NITRITE,URINE NEGATIVE (NEGATIVE); PROTEIN,URINE 100 mg/dL (NEGATIVE); URINE SPECIFIC GRAVITY 1.009; UROBILINOGEN,URINE NEGATIVE mg/dL (<2.0)
[2019-03-15] MEDS ORDERED: NORMAL SALINE 1000 ML 1,000 ML IV PRN (15:07)
[2019-03-15] MEDS ORDERED: EPOETIN ALFA INJ 20000 UNIT/1 ML VIAL (RENAL) IV PRN (15:07)
[2019-03-15] MEDS ORDERED: EPOETIN ALFA-EPBX 20,000 UNITS (ESRD) in SYRINGE IV PRN (15:15)
--- NOTE | 2019-03-15 15:37 | PDOC CONSULTATION ---
Consultation Consult Date: 03/15/19 Provider Consulted: YOSEPH CHERY Consult reason:: Acute shortness of breath with acute pulmonary edema. History of Present Illness Admission Date/PCP: MAURICE SINGH MD History of Present Illness: SANGEETA STEPHENS is a 58 year old female known to me with history of ADPKD, end- stage renal disease who just recently went back to maintenance hemodialysis on MWF, status post failed donor renal transplant August 11, 2013, status post bilateral [facility] nephrectomies in 2016, history of PTCA of right renal artery of the renal allograft with stent placement, CMV disease with elevated viral load and anemia who was brought into the emergency room crank hand today because of worsening shortness of breath. Patient relates that for the last couple of weeks she is been developing shortness of breath requiring oxygen during dialysis treatment. Last night her shortness of breath has gotten worse so she called EMS. When the fire department came in her oxygen saturation was 86% so she was immediately placed on BiPAP. She reports some nonproductive cough, reports some dyspnea on exertion, chills and unchanged left upper quadrant pain. She denies any fever, nausea, vomiting nor chest pains. Her chest x-ray showed moderate interstitial airspace opacities which could either be pulmonary edema versus pneumonia. Patient's last dialysis was last Friday and she says she completed the treatment. Today's her dialysis day. She has been so far compliant with her dialysis treatment. She makes a little bit of urine output but not much. She denies drinking a lot of fluids more than allowed. Of note patient was also in the emergency room last week on March 08 for hematuria. She was diagnosed with urinary tract infection and was prescribed Keflex but patient did not really take it. Her urine culture is negative. 4:10 PM. I arrange for patient to have hemodialysis in the emergency room. I am seeing her currently while on dialysis. She is very comfortable and tolerating dialysis well. Her BiPAP was discontinued and is currently just on nasal cannula. She says she feels fine on nasal cannula. Her blood pressure patricio s improved from initial systolic blood pressure at the start of dialysis of 173. So far she is tolerating ultrafiltration without any problems. 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 Past Surgical History Past Surgical History: Reports: Dialysis Access Surgery AVF - 02/07/2012, Nephrectomy - Left 02/09/2016; right 06/07/[address] Bush and [place], Renal Artery Angioplasty, Renal Stent - Renal allograft renal artery, Renal Transplant, Vascular Surgery - HD fistula, Other - Angioplasty of right common iliac artery and right external iliac artery Social History Information Source: Patient, [facility] Records Lives with: Friend Smoking Status: Former Smoker Frequency of Alcohol Use: None Hx Recreational Drug Use: Yes Family History Family History: CAD - Brother, Chronic Kidney Disease - ADPKD on her mother, brother and sister, DM - Father, Hypertension - Mother, brother and sister, Malignancy - Prostate cancer in her father, lymphoma in her mother Parental Family History Reviewed: Yes Children Family History Reviewed: Yes Sibling(s) Family History Reviewed.: Yes Medication/Allergy Allergies/Adverse Reactions: Penicillins Allergy (Unknown, Verified 03/01/19 07:20) Review of Systems All systems: reviewed and no additional remarkable complaints except as stated Review of Systems: Constitutional: ABSENT: Fatigue, fever(s), headache(s), weight gain, weight loss; admits chills Eyes: ABSENT: visual disturbances Ears: ABSENT: hearing changes Cardiovascular: ABSENT: chest pain, edema, orthropnea, palpitations; admits dyspnea on exertion Respiratory: ABSENT: hemoptysis; admits nonproductive cough and dyspnea Gastrointestinal: ABSENT: abdominal pain, constipation, diarrhea, hematemesis, hematochezia, nausea, vomiting Genitourinary: ABSENT: dysuria, hematuria Musculoskeletal: ABSENT: joint swelling Integumentary: ABSENT: rash, wounds Neurological: ABSENT: abnormal gait, abnormal speech, confusion, dizziness, focal weakness, numbness, syncope Psychiatric: ABSENT: anxiety, depression Endocrine: ABSENT: cold intolerance, heat intolerance, polydipsia, polyuria Hematologic/Lymphatic: ABSENT: easy bleeding, easy bruising, lymphadenopathy Physical Exam Vital Signs: Temp Pulse Resp BP Pulse Ox 98.6 F 108 H 14 136/72 H 100 03/15/19 04:58 03/15/19 04:58 03/15/19 09:02 03/15/19 09:02 03/15/19 09:02 Intake & Output 03/14/19 03/15/19 03/16/19 06:59 06:59 06:59 Weight 90.265 kg Vitals during dialysis: Initial blood pressure 173/83. Current blood pressure 137/71, heart rate of 87, respiratory rate of 13, oxygen saturation 100% with oxygen at 5 L via nasal cannula. Her blood flow rate using her fistula is 400 mL/min and dialysate flow rate of 800 mL/min. Exam: General appearance: On BiPAP, cooperative, well-developed, well-nourished Head exam: PRESENT: atraumatic, normocephalic Eye exam: PRESENT: Conjunctiva pale, EOMI, PERRLA. ABSENT: conjunctival injection, scleral icterus Mouth exam: PRESENT: moist, neck supple, tongue midline Neck exam: PRESENT: full ROM. ABSENT: carotid bruit, JVD, lymphadenopathy, thyromegaly Respiratory exam: PRESENT: Coarse breath sounds to auscultation bilaterally. Positive bibasilar crackles ABSENT: Rhonchi, stridor, wheezes Cardiovascular exam: PRESENT: RRR, +S1, +S2. ABSENT: systolic murmur Pulses: PRESENT: normal radial pulses, normal dorsalis pedis pulses GI/Abdominal exam: PRESENT: normal bowel sounds, soft. Mild left upper quadrant tenderness. No tenderness in the right lower quadrant renal allograft. ABSENT: guarding, mass, tenderness Rectal exam: Deferred Extremities exam: PRESENT: full ROM. She has mild trace bilateral lower extremity edema ABSENT: calf tenderness Musculoskeletal: PRESENT: full ROM. ABSENT: deformity Neurological exam: PRESENT: alert, Awake, Oriented to person, Oriented to place, Oriented to time, reflexes normal, CN II-XII grossly intact. ABSENT: motor sensory deficit Psychiatric exam: PRESENT: appropriate affect, normal mood. ABSENT: homicidal ideation, suicidal ideation Skin exam: PRESENT: intact, dry, warm. ABSENT: rash Results Laboratory Results: 03/15/19 04:29 03/15/19 04:29 03/15/19 03/15/19 03/15/19 04:29 04:29 04:29 WBC 15.1 H RBC 2.77 L Hgb 8.7 L Hct 28.0 L MCV 101 H MCH 31.5 MCHC 31.2 L RDW 17.6 H Plt Count 285 Seg Neutrophils % 75.5 Lymphocytes % 13.2 Monocytes % 9.7 Eosinophils % 0.5 Basophils % 1.1 Absolute Neutrophils 11.4 H Absolute Lymphocytes 2.0 Absolute Monocytes 1.5 H Absolute Eosinophils 0.1 Absolute Basophils 0.2 VBG pH VBG pCO2 VBG HCO3 VBG Base Excess Sodium 141.9 Potassium 3.8 Chloride 102 Carbon Dioxide 24 Anion Gap 16 BUN 46 H Creatinine 9.16 H Est GFR ( Amer) 5 L Est GFR (Non-Af Amer) 4 L Glucose 121 H Lactic Acid 1.2 Calcium 9.0 Total Bilirubin 0.8 AST 25 Alkaline Phosphatase 118 Total Protein 7.4 Albumin 4.2 03/15/19 04:29 WBC RBC Hgb Hct MCV MCH MCHC RDW Plt Count Seg Neutrophils % Lymphocytes % Monocytes % Eosinophils % Basophils % Absolute Neutrophils Absolute Lymphocytes Absolute Monocytes Absolute Eosinophils Absolute Basophils VBG pH 7.35 VBG pCO2 49.2 VBG HCO3 26.6 VBG Base Excess 0.7 Sodium Potassium Chloride Carbon Dioxide Anion Gap BUN Creatinine Est GFR ( Amer) Est GFR (Non-Af Amer) Glucose Lactic Acid Calcium Total Bilirubin AST Alkaline Phosphatase Total Protein Albumin 03/15/19 04:29 Troponin I 0.081 Impressions: Chest X-Ray 03/15/19 00:00 IMPRESSION: Moderate mixed interstitial and airpace opacities. Differential diagnosis includes pulmonary edema/CHF, multifocal pneumonia, and chronic interstitial lung disease. Assessment & Plan - Diagnosis (1) Acute pulmonary edema Is this a current diagnosis for this admission?: Yes Plan: Patient's chest x-ray findings could be due to this. We will do emergent hemodialysis in the emergency room with ultrafiltration. (2) ESRD (end stage renal disease) Is this a current diagnosis for this admission?: Yes Plan: We will do dialysis today for 3 hours, using the patient's AV fistula, with 3 potassium bath, blood flow rate of 450 mL per minute, dialysate flow rate of 800 mL per minute, ultrafiltration 4-5 L as tolerated, no heparin and Procrit with 20,000 units during dialysis intravenously. Discussed treatment plan with her dialysis nurse. Patient will be monitored throughout dialysis treatment. (3) Opacities of both lungs present on chest x-ray Is this a current diagnosis for this admission?: Yes Plan: Acute pulmonary edema versus pneumonia in the presence of elevated white count. (4) Hypertension Is this a current diagnosis for this admission?: Yes Plan: This is exacerbation by fluid overload. Ultrafiltration will help. Continue current blood pressure medications. (5) Anemia in chronic kidney disease (CKD) Is this a current diagnosis for this admission?: Yes Plan: We will give Procrit during dialysis treatment. (6) ADPKD (autosomal dominant polycystic kidney disease) Is this a current diagnosis for this admission?: Yes (7) Status post -donor kidney transplantation Is this a current diagnosis for this admission?: Yes Plan: This has failed. Continue immunosuppressants. - Notes Notes: Thank you very much for this consultation. We will follow the patient with you. - Time Time Spent: 50 to 70 Minutes
[2019-03-15] MEDS ORDERED: MYCOPHENOLATE SODIUM 540 MG PO SCH (18:45)
--- NOTE | 2019-03-15 19:50 | RADIOLOGY REPORT (SQ) ---
EXAM DESCRIPTION: CHEST SINGLE VIEW COMPLETED DATE/TIME: 03/15/2019 6:13 pm REASON FOR STUDY: chest view after dialysis COMPARISON: Earlier same day. NUMBER OF VIEWS: One view. TECHNIQUE: Single frontal radiographic view of the chest acquired. LIMITATIONS: None. FINDINGS: LUNGS AND PLEURA: Diffuse interstitial pattern. Improved definition of the left heart bor uday. MEDIASTINUM AND HILAR STRUCTURES: Stable. HEART AND VASCULATURE: Cardiac enlargement. Vascular congestion. BONES: No acute findings. HARDWARE: None in the chest. OTHER: No other significant finding. IMPRESSION: Improving CHF. TECHNICAL DOCUMENTATION: JOB ID: [id number] mmCHANNEL- All Rights Reserved Reading location - IP/workstation name: [email or web address]
--- NOTE | 2019-03-15 20:09 | PDOC H&P ---
History of Present Illness Admission Date/PCP: 03/15/19 15:29 MAURICE SINGH MD History of Present Illness: SANGEETA STEPHENS is a 58 year old female, Patient called me in the middle of the night that she was having difficulty breathing she wanted to know what she should do, I immediately advised to go to the emergency room for evaluation, went she arrived in the ER, chest x-ray was done, she was found to be in pulmonary edema, breathing was supported with noninvasive positive pressure ventilation and she needed immediate dialysis, she was kept in emergency room until the morning hours when she had hemodialysis in the ER. She has a history of polycystic kidney disease complicated with end-stage renal disease she was on maintenance hemodialysis ultimately had kidney transplant, it seems that the kidney transplant has failed, she is now back on maintenance hemodialysis, she is status post bilateral [place]ka nephrectomy.The chest x-ray is consistent with CHF picture, after hemodialysis a 2D echo will be ordered to assess LV function Past Medical History Cardiac Medical History: Reports: Hyperlipidema, Hypertension, Peripheral Va scular Disease Neurological Medical History: Reports: Ischemic CVA, Other - Positive residual left 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 on 07/04/2006, cerebral artery a Endocrine Medical History: Reports: Obesity Renal/ Medical History: Reports: End Stage Renal Disease, Nephrolithiasis, Other - ADPKD status post bilateral nephrectomy GI Medical History: Reports: Diverticulitis Musculoskeltal Medical History: Reports: Arthritis, Gout Psychiatric Medical History: Reports: Depression Hematology: Reports: Anemia - takes iron Past Surgical History Past Surgical History: Reports: Renal Transplant, Vascular Surgery - HD fistula, Other - Angioplasty of right common iliac artery and right external iliac artery Social History Lives with: Friend Smoking Status: Former Smoker Frequency of Alcohol Use: None Hx Recreational Drug Use: Yes Hx Prescription Drug Abuse: No Family History Family History: Reviewed & Not Pertinent, Hypertension Parental Family History Reviewed: Yes Children Family History Reviewed: Yes Sibling(s) Family History Reviewed.: Yes Medication/Allergy Home Medications: Amlodipine Besylate [Norvasc 10 mg Tablet] 10 mg PO DAILY 03/15/19 Calcium Acetate [Phoslo 667 mg Capsule] 1,334 mg PO MEALS 03/15/19 Clonidine [Catapres-Tts 1 (0.1 mg/24 Hr) Transderm Patch] 1 patch TOP FERRO@1000 03/15/19 Furosemide [Lasix 80 mg Tablet] 80 mg PO DAILY 03/15/19 Mycophenolate Sodium [Mycophenolic Acid] 540 mg PO BID 03/15/19 Prednisone [Deltasone 5 mg Tablet] 5 mg PO DAILY 03/15/19 Tacrolimus Anhydrous [Prograf 1 mg Capsule] 4 mg PO Q12 03/15/19 Venlafaxine HCl [Effexor Xr] 150 mg PO DAILY 03/15/19 Allergies/Adverse Reactions: Penicillins Allergy (Unknown, Verified 03/01/19 07:20) Review of Systems Constitutional: ABSENT: chills, fever(s), headache(s), weight gain, weight loss Eyes: ABSENT: visual disturbances Ears: ABSENT: hearing changes Cardiovascular: PRESENT: dyspnea on exertion, orthropnea Respiratory: ABSENT: cough, hemoptysis Gastrointestinal: ABSENT: abdominal pain, constipation, diarrhea, hematemesis, hematochezia, nausea, vomiting Genitourinary: ABSENT: dysuria, hematuria Musculoskeletal: ABSENT: joint swelling Integumentary: ABSENT: rash, wounds Neurological: ABSENT: abnormal gait, abnormal speech, confusion, dizziness, focal weakness, syncope Psychiatric: ABSENT: anxiety, depression, homidical ideation, suicidal ideation Endocrine: ABSENT: cold intolerance, heat intolerance, menstrual abnormalities, polydipsia, polyuria Hematologic/Lymphatic: ABSENT: easy bleeding, easy bruising, lymphadenopathy Physical Exam Vital Signs: Temp Pulse Resp BP Pulse Ox 99 F 90 18 153/62 H 100 03/15/19 18:56 03/15/19 18:56 03/15/19 18:56 03/15/19 18:56 03/15/19 18:56 Intake & Output 03/14/19 03/15/19 03/16/19 06:59 06:59 06:59 Weight 90.265 kg 83.4 kg General appearance: PRESENT: mild distress Head exam: PRESENT: atraumatic, normocephalic Eye exam: PRESENT: PERRLA Ear exam: PRESENT: normal external ear exam Neck exam: PRESENT: full ROM Respiratory exam: PRESENT: rales Cardiovascular exam: PRESENT: RRR, +S1, +S2 GI/Abdominal exam: PRESENT: normal bowel sounds, soft Rectal exam: PRESENT: deferred Neurological exam: PRESENT: alert, awake, oriented to person, oriented to place, oriented to time, oriented to situation, CN II-XII grossly intact Psychiatric exam: PRESENT: appropriate affect, normal mood Skin exam: PRESENT: dry, intact, warm Results Laboratory Results: 03/15/19 04:29 03/15/19 04:29 03/15/19 03/15/19 03/15/19 04:29 04:29 04:29 WBC 15.1 H RBC 2.77 L Hgb 8.7 L Hct 28.0 L MCV 101 H MCH 31.5 MCHC 31.2 L RDW 17.6 H Plt Count 285 Seg Neutrophils % 75.5 Lymphocytes % 13.2 Monocytes % 9.7 Eosinophils % 0.5 Basophils % 1.1 Absolute Neutrophils 11.4 H Absolute Lymphocytes 2.0 Absolute Monocytes 1.5 H Absolute Eosinophils 0.1 Absolute Basophils 0.2 VBG pH VBG pCO2 VBG HCO3 VBG Base Excess Sodium 141.9 Potassium 3.8 Chloride 102 Carbon Dioxide 24 Anion Gap 16 BUN 46 H Creatinine 9.16 H Est GFR ( Amer) 5 L Est GFR (Non-Af Amer) 4 L Glucose 121 H Lactic Acid 1.2 Calcium 9.0 Total Bilirubin 0.8 AST 25 Alkaline Phosphatase 118 Total Protein 7.4 Albumin 4.2 Urine Color Urine Appearance Urine pH Ur Specific [place] Urine Protein Urine Glucose (UA) Urine Ketones Urine Blood Urine Nitrite Ur Leukocyte Esterase Urine WBC (Auto) Urine RBC (Auto) 03/15/19 03/15/19 04:29 12:00 WBC RBC Hgb Hct MCV MCH MCHC RDW Plt Count Seg Neutrophils % Lymphocytes % Monocytes % Eosinophils % Basophils % Absolute Neutrophils Absolute Lymphocytes Absolute Monocytes Absolute Eosinophils Absolute Basophils VBG pH 7.35 VBG pCO2 49.2 VBG HCO3 26.6 VBG Base Excess 0.7 Sodium Potassium Chloride Carbon Dioxide Anion Gap BUN Creatinine Est GFR ( Amer) Est GFR (Non-Af Amer) Glucose Lactic Acid Calcium Total Bilirubin AST Alkaline Phosphatase Total Protein Albumin Urine Color YELLOW Urine Appearance SLIGHTLY-CLOUDY Urine pH 7.0 Ur Specific [place] 1.009 Urine Protein 100 H Urine Glucose (UA) NEGATIVE Urine Ketones NEGATIVE Urine Blood MODERATE H Urine Nitrite NEGATIVE Ur Leukocyte Esterase MODERATE H Urine WBC (Auto) 7 Urine RBC (Auto) 131 03/15/19 04:29 Troponin I 0.081 Impressions: Chest X-Ray 03/15/19 00:00 IMPRESSION: Improving CHF. Assessment & Plan - Diagnosis (1) Acute systolic heart failure Is this a current diagnosis for this admission?: Yes Plan: Patient clinical presentation is consistent with CHF, 2D echo will be ordered after dialysis (2) End-stage renal disease on hemodialysis Is this a current diagnosis for this admission?: Yes Plan: Per nephrology
[2019-03-15 21:07] LABS: PHOSPHORUS 3.7 mg/dL (2.5-4.5)
[2019-03-15 21:20] LABS: CREATINE KINASE MB 0.73 ng/mL (<4.55)
[2019-03-15 21:24] LABS: FREE T4 (FREE THYROXINE) 1.43 ng/dL (0.78-2.19)
[2019-03-15 21:29] LABS: TROPONIN I 0.081 ng/mL
[2019-03-15 21:38] LABS: THYROID STIMULATING HORMONE 2.38 uIU/mL (0.47-4.68)
[2019-03-15] MEDS: HEPARIN SOD (PORCINE) 5,000 UNIT/ML 1 ML VIAL SUBCUT SCH (22:00)
[2019-03-15] MEDS: TACROLIMUS ANHYDROUS 1 MG CAPSULE PO SCH (22:01)
[2019-03-15 23:39] LABS: INTERNATIONAL RATION (INR) 1.11; PARTIAL THROMBOPLASTIN TIME 33.2 SEC (23.5-35.8); PROTHROMBIN TIME 14.3 SEC (11.4-15.4)
[2019-03-16 02:18] LABS: ABSOLUTE BASOPHILS # (AUTO) 0.1 10^3/uL (0.0-0.2); ABSOLUTE EOSINOPHILS # (AUTO) 0.2 10^3/uL (0.0-0.6); ABSOLUTE LYMPHOCYTES (AUTO) 1.1 10^3/uL (0.5-4.7); ABSOLUTE NEUT (AUTO) 6.2 10^3/uL (1.7-8.2); BASOPHILS % (AUTO) 0.9 % (0-2); HEMATOCRIT 24.2 % (36.0-47.0); LYMPHOCYTES % (AUTO) 12.7 % (13-45); MEAN CORPUSCULAR HEMOGLOBIN 32.1 pg (27.0-33.4); MEAN CORPUSCULAR HGB CONC 32.3 g/dL (32.0-36.0); MEAN CORPUSCULAR VOLUME 99 fl (80-97); MONOCYTES % (AUTO) 11.7 % (3-13); PLATELET COUNT 197 10^3/uL (150-450); RED BLOOD COUNT 2.43 10^6/uL (3.72-5.28); RED CELL DISTRIBUTION WIDTH 17.4 % (11.5-14.0); SEGMENTED NEUTROPHILS % (AUTO) 72.7 % (42-78); TOTAL CELLS COUNTED % (AUTO) 100 %; WHITE BLOOD COUNT 8.5 10^3/uL (4.0-10.5)
[2019-03-16 02:30] LABS: HEMOGLOBIN 7.8 g/dL (12.0-15.5)
[2019-03-16 02:42] LABS: CREATINE KINASE MB 0.58 ng/mL (<4.55)
[2019-03-16 02:45] LABS: TROPONIN I 0.087 ng/mL
[2019-03-16] MEDS: HEPARIN SOD (PORCINE) 5,000 UNIT/ML 1 ML VIAL SUBCUT SCH ×3 (05:59→21:23)
[2019-03-16 08:54] LABS: ALBUMIN 3.4 g/dL (3.5-5.0); ALKALINE PHOSPHATASE 109 U/L (38-126); ANION GAP 9 (5-19); ASPARTATE AMINO TRANSFERASE 12 U/L (14-36); BILIRUBIN,DIRECT 0.4 mg/dL (0.0-0.4); BILIRUBIN,TOTAL 0.7 mg/dL (0.2-1.3); BLOOD UREA NITROGEN 26 mg/dL (7-20); CALCIUM 9.1 mg/dL (8.4-10.2); CARBON DIOXIDE 31 mmol/L (22-30); CHLORIDE 98 mmol/L (98-107); CHOLESTEROL 170.56 mg/dL (0-200); CREATINE KINASE 27 U/L (30-135); GLUCOSE 89 mg/dL (75-110); POTASSIUM 3.6 mmol/L (3.6-5.0); TOTAL PROTEIN 6.3 g/dL (6.3-8.2); TRIGLYCERIDES 94 mg/dL (<150)
[2019-03-16 09:05] LABS: CREATINE KINASE MB 0.34 ng/mL (<4.55); DIRECT LDL 102 mg/dL (<100); TROPONIN I 0.086 ng/mL
[2019-03-16] MEDS ORDERED: EPOETIN ALFA-EPBX 20,000 UNITS (ESRD) in SYRINGE IV PRN (09:18)
[2019-03-16] MEDS: FUROSEMIDE 80 MG TABLET PO SCH (10:06)
[2019-03-16] MEDS: VENLAFAXINE HCL 75 MG CAP.SR.24H PO SCH (10:06)
[2019-03-16] MEDS: TACROLIMUS ANHYDROUS 1 MG CAPSULE PO SCH ×2 (10:07→21:22)
[2019-03-16] MEDS: PREDNISONE 5 MG TABLET PO SCH (10:07)
[2019-03-16] MEDS: AMLODIPINE BESYLATE 10 MG TABLET PO SCH (10:07)
[2019-03-16] MEDS: CALCIUM ACETATE 667 MG CAPSULE PO SCH ×3 (10:07→16:52)
[2019-03-16 14:19] LABS: APPEARANCE,URINE CLOUDY; BILIRUBIN,URINE NEGATIVE (NEGATIVE); COLOR,URINE YELLOW; GLUCOSE, URINE NEGATIVE (NEGATIVE); KETONES,URINE NEGATIVE (NEGATIVE); LEUKOCYTE ESTERASE,URINE SMALL (NEGATIVE); NITRITE,URINE NEGATIVE (NEGATIVE); PROTEIN,URINE >=500 mg/dL (NEGATIVE); UROBILINOGEN,URINE NEGATIVE mg/dL (<2.0)
[2019-03-16 14:36] LABS: URINE AMPHETAMINES SCREEN NEGATIVE; URINE BARBITURATES SCREEN NEGATIVE; URINE BENZODIAZEPINES SCREEN NEGATIVE; URINE COCAINE SCREEN NEGATIVE; URINE MARIJUANA (THC) SCREEN NEGATIVE; URINE METHADONE SCREEN NEGATIVE; URINE PHENCYCLIDINE SCREEN NEGATIVE
[2019-03-16] MEDS: VALSARTAN 40 MG TABLET PO SCH (18:48)
[2019-03-16] MEDS: CARVEDILOL 3.125 MG TABLET PO SCH (18:48)
--- NOTE | 2019-03-16 19:18 | XCELERA REPORT ---
[address] [address] Transthoracic Echocardiogram Report Name: SANGEETA STEPHENS Age: 58 yrs Gender: Female : 1960 Patient Status: Inpatient Patient Location: [address] [place], [place] [address] Study Date: 03/15/2019 08:42 PM Height: 64 in Weight: 183 lb BSA: 1.9 m2 Procedure: A two-dimensional transthoracic echocardiogram with color flow Doppler was performed. Study Quality: Good. Reason For Study: chf History: CHF. Ordering Physician: MAURICE SINGH Performed By: Beth Ramírez Interpretation Summary The left ventricle is moderately dilated. There is normal left ventricular wall thickness. LV EF is 25% Left ventricular systolic function is severely reduced. Doppler measurements suggest impaired left ventricular relaxation, which is associated with grade I/IV or mild diastolic dysfunction By tissue dopplers. There is severe global hypokinesis of the left ventricle. No ASD ,VSD , or PFO seen. The right ventricle is normal in size and function. The right atrium is normal. The left atrial size is normal. There is no evidence of mitral valve prolapse. There is no vegetation seen on the mitral valve. There is no mitral valve stenosis. There is a moderate amount of mitral regurgitation There is no aortic valvular vegetation. There is aortic sclerosis without aortic stenosis. There is no LVOT obstruction. There is no tricuspid stenosis. There is a mild amount of tricuspid regurgitation Upper normal to mildly elevated pulmonary pressures..RVSP is 29 to 34 mm of Hg , with RA mean of 5 to 10. There is no pulmonic valvular stenosis. There is no pulmonic valvular regurgitation. The aortic root is normal size. The inferior vena cava appeared normal and decreased > 50% with respiration (RAP 5-10 mmHg) Small pericardial effusion. There are no echocardiographic or Doppler indications for cardiac tamponade MMode/2D Measurements & Calculations RVDd: 1.8 cm LVIDd: 6.1 cm FS: 10.7 % Ao root diam: 2.6 cm IVSd: 0.87 cm LVIDs: 5.4 cm EDV(Teich): LVPWd: 1.1 cm 184.5 ml Ao root area: ESV(Teich): 5.4 cm2 142.3 ml LA dimension: EF(Teich): 22.9 % 3.6 cm LVLd ap4: 7.2 cm SV(MOD-sp4): EDV(MOD-sp4): 36.0 ml 118.0 ml LVLs ap4: 6.0 cm ESV(MOD-sp4): 82.0 ml EF(MOD-sp4): 30.5 % Doppler Measurements & Calculations MV E max filipe: MV P1/2t max filipe: Ao V2 max: AI max filipe: 158.6 cm/sec 168.9 cm/sec 184.0 cm/sec 344.8 cm/sec MV A max filipe: MV P1/2t: 58.3 msec Ao max PG: AI max P.3 cm/sec MVA(P1/2t): 3.8 cm2 13.5 mmHg 47.6 mmHg MV E/A: 1.5 MV dec slope: AI dec slope: 291.3 cm/sec2 848.9 cm/sec2 AI P1/2t: MV dec time: 0.17 sec 346.7 msec LV V1 max PG: PA V2 max: TR max filipe: AV P1/2t-pr_phl: 3.8 mmHg 120.8 cm/sec 244.3 cm/sec 346.7 msec LV V1 max: PA max P.8 mmHg TR max P.2 cm/sec 23.9 mmHg MV P1/2t-pr_phl: 58.3 msec Left Ventricle The left ventricle is moderately dilated. There is normal left ventricular wall thickness. LV EF is 25%. Left ventricular systolic function is severely reduced. Doppler measurements suggest impaired left ventricular relaxation, which is associated with grade I/IV or mild diastolic dysfunction. By tissue dopplers. There is severe global hypokinesis of the left ventricle. There is no thrombus. No ASD ,VSD , or PFO seen. Right Ventricle The right ventricle is normal in size and function. Atria The right atrium is normal. The left atrial size is normal. Mitral Valve There is no evidence of mitral valve prolapse. There is no vegetation seen on the mitral valve. There is no mitral valve stenosis. There is a moderate amount of mitral regurgitation. Aortic Valve There is no aortic valvular vegetation. There is aortic sclerosis without aortic stenosis. There is no LVOT obstruction. There is a trace amount of aortic regurgitation. Tricuspid Valve There is no tricuspid stenosis. There is a mild amount of tricuspid regurgitation. Upper normal to mildly elevated pulmonary pressures..RVSP is 29 to 34 mm of Hg , with RA mean of 5 to 10. Pulmonic Valve There is no pulmonic valvular stenosis. There is no pulmonic valvular regurgitation. Great Vessels The aortic root is normal size. The inferior vena cava appeared normal and decreased > 50% with respiration (RAP 5-10 mmHg). Effusions Small pericardial effusion. There are no echocardiographic or Doppler indications for cardiac tamponade. : MAURICE SINGH > Michelle Man
--- NOTE | 2019-03-16 21:15 | PDOC PROGRESS REPORT ---
Subjective Progress Note for:: 03/16/19 Subjective:: Patient seen by the bedside, 2D echo was done, the unofficial result demonstrated dilated left ventricle with ejection fraction about 25% Reason For Visit: PULMONARY EDEMA ? PNEUMONIA Physical Exam Vital Signs: Temp Pulse Resp BP Pulse Ox 98.3 F 93 18 121/47 L 100 03/16/19 15:26 03/16/19 19:00 03/16/19 15:26 03/16/19 15:26 03/16/19 15:26 Intake & Output 03/15/19 03/16/19 03/17/19 06:59 06:59 06:59 Intake Total 150 610 Output Total 3100 100 Balance -2950 510 Weight 90.265 kg 87.1 kg General appearance: PRESENT: no acute distress Eye exam: PRESENT: PERRLA Respiratory exam: PRESENT: clear to auscultation staci Cardiovascular exam: PRESENT: +S1, +S2 GI/Abdominal exam: PRESENT: soft Neurological exam: PRESENT: alert Results Laboratory Results: 03/16/19 02:00 03/16/19 07:57 03/15/19 03/15/19 03/15/19 20:39 20:39 20:39 WBC RBC Hgb Hct MCV MCH MCHC RDW Plt Count Seg Neutrophils % Lymphocytes % Monocytes % Eosinophils % Basophils % Absolute Neutrophils Absolute Lymphocytes Absolute Monocytes Absolute Eosinophils Absolute Basophils Sodium Potassium Chloride Carbon Dioxide Anion Gap BUN Creatinine Est GFR ( Amer) Est GFR (Non-Af Amer) Glucose Calcium Phosphorus 3.7 Magnesium 1.8 Total Bilirubin AST Alkaline Phosphatase Ammonia < 8.7 L Total Protein Albumin Triglycerides Cholesterol LDL Cholesterol Direct VLDL Cholesterol HDL Cholesterol Amylase 58 Lipase 56.7 TSH 2.38 Free T4 1.43 Urine Color Urine Appearance Urine pH Ur Specific [place] Urine Protein Urine Glucose (UA) Urine Ketones Urine Blood Urine Nitrite Ur Leukocyte Esterase Urine WBC (Auto) Urine RBC (Auto) 03/16/19 03/16/19 03/16/19 02:00 07:57 13:25 WBC 8.5 RBC 2.43 L Hgb 7.8 L Hct 24.2 L MCV 99 H MCH 32.1 MCHC 32.3 RDW 17.4 H Plt Count 197 Seg Neutrophils % 72.7 Lymphocytes % 12.7 L Monocytes % 11.7 Eosinophils % 2.0 Basophils % 0.9 Absolute Neutrophils 6.2 Absolute Lymphocytes 1.1 Absolute Monocytes 1.0 Absolute Eosinophils 0.2 Absolute Basophils 0.1 Sodium 137.5 Potassium 3.6 Chloride 98 Carbon Dioxide 31 H Anion Gap 9 BUN 26 H Creatinine 5.87 H Est GFR ( Amer) 9 L Est GFR (Non-Af Amer) 7 L Glucose 89 Calcium 9.1 Phosphorus Magnesium Total Bilirubin 0.7 AST 12 L Alkaline Phosphatase 109 Ammonia Total Protein 6.3 Albumin 3.4 L Triglycerides 94 Cholesterol 170.56 LDL Cholesterol Direct 102 H VLDL Cholesterol 19.0 HDL Cholesterol 49 Amylase Lipase TSH Free T4 Urine Color YELLOW Urine Appearance CLOUDY Urine pH 8.0 Ur Specific [place] 1.010 Urine Protein >=500 H Urine Glucose (UA) NEGATIVE Urine Ketones NEGATIVE Urine Blood LARGE H Urine Nitrite NEGATIVE Ur Leukocyte Esterase SMALL H Urine WBC (Auto) 59 Urine RBC (Auto) >182 03/15/19 03/15/19 03/15/19 04:29 20:39 20:39 Creatine Kinase 31 CK-MB (CK-2) 0.73 Troponin I 0.081 0.081 03/16/19 03/16/19 03/16/19 02:00 02:00 07:57 Creatine Kinase 32 27 L CK-MB (CK-2) 0.58 Troponin I 0.087 03/16/19 03/16/19 07:57 07:57 Creatine Kinase Cancelled CK-MB (CK-2) 0.34 Troponin I 0.086 Impressions: Chest X-Ray 03/15/19 00:00 IMPRESSION: Improving CHF. Assessment & Plan - Diagnosis (1) Acute systolic heart failure Is this a current diagnosis for this admission?: Yes Plan: Start Coreg, ARB, may need a repeat 2D echo in 3 months to determine the need for AICD, consult cardiology, Probably ischemic cardiomyopathy (2) End-stage renal disease on hemodialysis Is this a current diagnosis for this admission?: Yes Plan: Per nephrology
[2019-03-17] MEDS ORDERED: NORMAL SALINE 1000 ML 1,000 ML IV PRN (05:00)
[2019-03-17] MEDS ORDERED: EPOETIN ALFA INJ 20000 UNIT/1 ML VIAL (RENAL) IV PRN (05:00)
[2019-03-17] MEDS ORDERED: EPOETIN ALFA-EPBX 20,000 UNITS (ESRD) in SYRINGE IV PRN (05:00)
[2019-03-17 05:51] LABS: ALBUMIN 3.4 g/dL (3.5-5.0); ALKALINE PHOSPHATASE 104 U/L (38-126); ANION GAP 11 (5-19); ASPARTATE AMINO TRANSFERASE 11 U/L (14-36); BILIRUBIN,DIRECT 0.4 mg/dL (0.0-0.4); BILIRUBIN,TOTAL 0.5 mg/dL (0.2-1.3); BLOOD UREA NITROGEN 44 mg/dL (7-20); CALCIUM 9.3 mg/dL (8.4-10.2); CARBON DIOXIDE 29 mmol/L (22-30); CHLORIDE 96 mmol/L (98-107); GLUCOSE 101 mg/dL (75-110); POTASSIUM 3.5 mmol/L (3.6-5.0); TOTAL PROTEIN 6.3 g/dL (6.3-8.2)
[2019-03-17 05:54] LABS: ABSOLUTE BASOPHILS # (AUTO) 0.1 10^3/uL (0.0-0.2); ABSOLUTE EOSINOPHILS # (AUTO) 0.2 10^3/uL (0.0-0.6); ABSOLUTE LYMPHOCYTES (AUTO) 1.4 10^3/uL (0.5-4.7); ABSOLUTE MONOCYTES (AUTO) 1.2 10^3/uL (0.1-1.4); ABSOLUTE NEUT (AUTO) 6.4 10^3/uL (1.7-8.2); BASOPHILS % (AUTO) 0.7 % (0-2); EOSINOPHILS % (AUTO) 2.2 % (0-6); HEMATOCRIT 24.7 % (36.0-47.0); LYMPHOCYTES % (AUTO) 15.4 % (13-45); MEAN CORPUSCULAR HEMOGLOBIN 31.5 pg (27.0-33.4); MEAN CORPUSCULAR HGB CONC 32.1 g/dL (32.0-36.0); MEAN CORPUSCULAR VOLUME 98 fl (80-97); MONOCYTES % (AUTO) 12.5 % (3-13); PLATELET COUNT 214 10^3/uL (150-450); RED BLOOD COUNT 2.51 10^6/uL (3.72-5.28); RED CELL DISTRIBUTION WIDTH 17.1 % (11.5-14.0); SEGMENTED NEUTROPHILS % (AUTO) 69.2 % (42-78); TOTAL CELLS COUNTED % (AUTO) 100 %; WHITE BLOOD COUNT 9.3 10^3/uL (4.0-10.5)
[2019-03-17 06:00] LABS: HEMOGLOBIN 7.9 g/dL (12.0-15.5)
[2019-03-17] MEDS: HEPARIN SOD (PORCINE) 5,000 UNIT/ML 1 ML VIAL SUBCUT SCH ×3 (06:18→21:33)
[2019-03-17] MEDS: VALSARTAN 40 MG TABLET PO SCH ×2 (06:19→17:27)
[2019-03-17] MEDS: CARVEDILOL 3.125 MG TABLET PO SCH ×2 (06:19→17:27)
--- NOTE | 2019-03-17 09:17 | PDOC PROGRESS REPORT ---
Subjective Progress Note for:: 03/17/19 Subjective:: I am seeing the patient during dialysis treatment this morning. She is on room air and is very comfortable sitting on her dialysis chair. She is so far tolerating dialysis without any problems. She said she still has some dry cough. Patient had an echocardiogram yesterday which showed LVEF of 25% associated with global hypokinesia moderate MR and mild TR. Reason For Visit: PULMONARY EDEMA ? PNEUMONIA Physical Exam Vital Signs: Temp Pulse Resp BP Pulse Ox 98.0 F 84 20 129/53 H 98 03/17/19 03:29 03/17/19 07:00 03/17/19 03:29 03/17/19 03:29 03/17/19 03:29 Intake & Output 03/16/19 03/17/19 03/18/19 06:59 06:59 06:59 Intake Total 150 810 Output Total 3100 100 Balance -2950 710 Weight 87.1 kg 87.5 kg Vitals during dialysis: Blood pressure 121/58, heart rate of 74, blood flow rate of 400 mL/min and dialysate flow rate of 800 mL/min. Exam: General appearance: PRESENT: no acute distress, cooperative, well-developed, well-nourished Head exam: PRESENT: atraumatic, normocephalic Eye exam: PRESENT: conjunctiva pale, PERRLA. ABSENT: scleral icterus Neck exam: ABSENT: JVD Respiratory exam: PRESENT: Diminished breath sounds. ABSENT: crackles, rales, rhonchi, unlabored, wheezes Cardiovascular exam: PRESENT: Regular rate rhythm -+S1, +S2. ABSENT: diastolic murmur, systolic murmur GI/Abdominal exam: PRESENT: normal bowel sounds, soft. ABSENT: guarding, mass, tenderness Extremities exam: ABSENT: No edema Neurological exam: PRESENT: alert, awake, oriented to person, place and time. Skin exam: PRESENT: dry, warm, Results Laboratory Results: 03/17/19 04:34 03/17/19 04:34 03/16/19 03/17/19 03/17/19 13:25 04:34 04:34 WBC 9.3 RBC 2.51 L Hgb 7.9 L Hct 24.7 L MCV 98 H MCH 31.5 MCHC 32.1 RDW 17.1 H Plt Count 214 Seg Neutrophils % 69.2 Lymphocytes % 15.4 Monocytes % 12.5 Eosinophils % 2.2 Basophils % 0.7 Absolute Neutrophils 6.4 Absolute Lymphocytes 1.4 Absolute Monocytes 1.2 Absolute Eosinophils 0.2 Absolute Basophils 0.1 Sodium 135.6 L Potassium 3.5 L Chloride 96 L Carbon Dioxide 29 Anion Gap 11 BUN 44 H Creatinine 8.09 H Est GFR ( Amer) 6 L Est GFR (Non-Af Amer) 5 L Glucose 101 Calcium 9.3 Total Bilirubin 0.5 AST 11 L Alkaline Phosphatase 104 Total Protein 6.3 Albumin 3.4 L Urine Color YELLOW Urine Appearance CLOUDY Urine pH 8.0 Ur Specific [place] 1.010 Urine Protein >=500 H Urine Glucose (UA) NEGATIVE Urine Ketones NEGATIVE Urine Blood LARGE H Urine Nitrite NEGATIVE Ur Leukocyte Esterase SMALL H Urine WBC (Auto) 59 Urine RBC (Auto) >182 03/15/19 03/15/19 03/15/19 04:29 20:39 20:39 Creatine Kinase 31 CK-MB (CK-2) 0.73 Troponin I 0.081 0.081 03/16/19 03/16/19 03/16/19 02:00 02:00 07:57 Creatine Kinase 32 27 L CK-MB (CK-2) 0.58 Troponin I 0.087 03/16/19 03/16/19 07:57 07:57 Creatine Kinase Cancelled CK-MB (CK-2) 0.34 Troponin I 0.086 Impressions: Chest X-Ray 03/15/19 00:00 IMPRESSION: Moderate mixed interstitial and airpace opacities. Differential diagnosis includes pulmonary edema/CHF, multifocal pneumonia, and chronic interstitial lung disease. Assessment & Plan - Diagnosis (1) ESRD (end stage renal disease) Is this a current diagnosis for this admission?: Yes Plan: We will do dialysis today for 3 hours, using the patient's AV fistula, with 3 potassium bath, blood flow rate of 400 mL per minute, dialysate flow rate of 800 mL per minute, ultrafiltration 3 L as tolerated, no have and Procrit with 20,000 units during dialysis intravenously. Patient will be monitored throughout dialysis treatment. Discussed dialysis prescription with her dialysis nurse. (2) Acute pulmonary edema Is this a current diagnosis for this admission?: Yes Plan: Resolved. (3) Acute systolic heart failure Is this a current diagnosis for this admission?: Yes Plan: From echocardiogram on 03/16/2019, LVEF of 25% with global hypokinesia, moderate MR and mild TR. Patient would need cardiology to follow. (4) Hypertension Is this a current diagnosis for this admission?: Yes Plan: Well-controlled. (5) Anemia in chronic kidney disease (CKD) Is this a current diagnosis for this admission?: Yes Plan: Procrit during dialysis treatment as needed. (6) Opacities of both lungs present on chest x-ray Is this a current diagnosis for this admission?: Yes Plan: Due to acute pulmonary edema. (7) ADPKD (autosomal dominant polycystic kidney disease) Is this a current diagnosis for this admission?: Yes (8) Status post -donor kidney transplantation Is this a current diagnosis for this admission?: Yes Plan: Kidney allograft has failed. Continue immunosuppressants. - Time Time with patient: 15-25 minutes
[2019-03-17] MEDS: CALCIUM ACETATE 667 MG CAPSULE PO SCH ×4 (12:42→17:32)
[2019-03-17] MEDS: VENLAFAXINE HCL 75 MG CAP.SR.24H PO SCH (12:57)
[2019-03-17] MEDS: PREDNISONE 5 MG TABLET PO SCH (12:57)
[2019-03-17] MEDS: TACROLIMUS ANHYDROUS 1 MG CAPSULE PO SCH ×2 (12:57→21:36)
[2019-03-17] MEDS: FUROSEMIDE 80 MG TABLET PO SCH (12:57)
[2019-03-17] MEDS: AMLODIPINE BESYLATE 10 MG TABLET PO SCH (13:00)
--- NOTE | 2019-03-17 18:06 | PDOC PROGRESS REPORT ---
Subjective Progress Note for:: 03/17/19 Subjective:: She has dilated cardiomyopathy, she was seen today by Dr. Man, cardiology, she underwent hemodialysis today Reason For Visit: PULMONARY EDEMA ? PNEUMONIA Physical Exam Vital Signs: Temp Pulse Resp BP Pulse Ox 98.4 F 75 18 64/36 L 100 03/17/19 16:57 03/17/19 16:57 03/17/19 16:57 03/17/19 16:57 03/17/19 16:57 Intake & Output 03/16/19 03/17/19 03/18/19 06:59 06:59 06:59 Intake Total 150 810 Output Total 3100 100 1900 Balance -2950 710 -1900 Weight 87.1 kg 87.5 kg General appearance: PRESENT: no acute distress Eye exam: PRESENT: PERRLA Respiratory exam: PRESENT: clear to auscultation staci Cardiovascular exam: PRESENT: +S1, +S2 GI/Abdominal exam: PRESENT: soft Neurological exam: PRESENT: alert Results Laboratory Results: 03/17/19 04:34 03/17/19 04:34 03/17/19 03/17/19 04:34 04:34 WBC 9.3 RBC 2.51 L Hgb 7.9 L Hct 24.7 L MCV 98 H MCH 31.5 MCHC 32.1 RDW 17.1 H Plt Count 214 Seg Neutrophils % 69.2 Lymphocytes % 15.4 Monocytes % 12.5 Eosinophils % 2.2 Basophils % 0.7 Absolute Neutrophils 6.4 Absolute Lymphocytes 1.4 Absolute Monocytes 1.2 Absolute Eosinophils 0.2 Absolute Basophils 0.1 Sodium 135.6 L Potassium 3.5 L Chloride 96 L Carbon Dioxide 29 Anion Gap 11 BUN 44 H Creatinine 8.09 H Est GFR ( Amer) 6 L Est GFR (Non-Af Amer) 5 L Glucose 101 Calcium 9.3 Total Bilirubin 0.5 AST 11 L Alkaline Phosphatase 104 Total Protein 6.3 Albumin 3.4 L 03/15/19 12:00 Catheterized Urine Urine Culture - Final NO GROWTH 2 DAYS 03/15/19 03/15/19 03/15/19 04:29 20:39 20:39 Creatine Kinase 31 CK-MB (CK-2) 0.73 Troponin I 0.081 0.081 03/16/19 03/16/19 03/16/19 02:00 02:00 07:57 Creatine Kinase 32 27 L CK-MB (CK-2) 0.58 Troponin I 0.087 03/16/19 03/16/19 07:57 07:57 Creatine Kinase Cancelled CK-MB (CK-2) 0.34 Troponin I 0.086 Impressions: Chest X-Ray 03/15/19 00:00 IMPRESSION: Moderate mixed interstitial and airpace opacities. Differential diagnosis includes pulmonary edema/CHF, multifocal pneumonia, and chronic interstitial lung disease. Assessment & Plan - Diagnosis (1) Acute systolic heart failure Is this a current diagnosis for this admission?: Yes Plan: Continue treatment (2) End-stage renal disease on hemodialysis Is this a current diagnosis for this admission?: Yes Plan: Per nephrology
--- NOTE | 2019-03-17 21:34 | PDOC CONSULTATION ---
Consultation-Blank Consultation: CARDIOLOGY NOTE: Attempted to do a consultation. When I interviewed the patient the patient was having dialysis. She was very sleepy and lethargic and would not give any answers. Hence we will try to do the consultation tomorrow, when she will be off dialysis.
[2019-03-18] MEDS: VALSARTAN 40 MG TABLET PO SCH ×2 (05:16→17:55)
[2019-03-18] MEDS: HEPARIN SOD (PORCINE) 5,000 UNIT/ML 1 ML VIAL SUBCUT SCH ×3 (05:17→21:17)
[2019-03-18] MEDS: CARVEDILOL 3.125 MG TABLET PO SCH ×2 (05:18→17:55)
[2019-03-18 05:37] LABS: ABSOLUTE BASOPHILS # (AUTO) 0.1 10^3/uL (0.0-0.2); ABSOLUTE EOSINOPHILS # (AUTO) 0.2 10^3/uL (0.0-0.6); ABSOLUTE LYMPHOCYTES (AUTO) 1.2 10^3/uL (0.5-4.7); ABSOLUTE NEUT (AUTO) 6.1 10^3/uL (1.7-8.2); BASOPHILS % (AUTO) 0.8 % (0-2); EOSINOPHILS % (AUTO) 2.7 % (0-6); HEMATOCRIT 27.2 % (36.0-47.0); HEMOGLOBIN 8.7 g/dL (12.0-15.5); MEAN CORPUSCULAR HEMOGLOBIN 31.8 pg (27.0-33.4); MEAN CORPUSCULAR HGB CONC 32.1 g/dL (32.0-36.0); MEAN CORPUSCULAR VOLUME 99 fl (80-97); MONOCYTES % (AUTO) 11.4 % (3-13); PLATELET COUNT 217 10^3/uL (150-450); RED BLOOD COUNT 2.74 10^6/uL (3.72-5.28); RED CELL DISTRIBUTION WIDTH 16.8 % (11.5-14.0); SEGMENTED NEUTROPHILS % (AUTO) 71.1 % (42-78); TOTAL CELLS COUNTED % (AUTO) 100 %; WHITE BLOOD COUNT 8.5 10^3/uL (4.0-10.5)
[2019-03-18 05:53] LABS: ALBUMIN 3.5 g/dL (3.5-5.0); ALKALINE PHOSPHATASE 112 U/L (38-126); ANION GAP 10 (5-19); ASPARTATE AMINO TRANSFERASE 12 U/L (14-36); BILIRUBIN,DIRECT 0.4 mg/dL (0.0-0.4); BILIRUBIN,TOTAL 0.5 mg/dL (0.2-1.3); BLOOD UREA NITROGEN 29 mg/dL (7-20); CALCIUM 9.3 mg/dL (8.4-10.2); CARBON DIOXIDE 29 mmol/L (22-30); CHLORIDE 97 mmol/L (98-107); GLUCOSE 92 mg/dL (75-110); POTASSIUM 3.9 mmol/L (3.6-5.0); TOTAL PROTEIN 6.3 g/dL (6.3-8.2)
[2019-03-18] MEDS: CALCIUM ACETATE 667 MG CAPSULE PO SCH ×4 (11:32→18:00)
[2019-03-18] MEDS: VENLAFAXINE HCL 75 MG CAP.SR.24H PO SCH (11:35)
[2019-03-18] MEDS: FUROSEMIDE 80 MG TABLET PO SCH (11:35)
[2019-03-18] MEDS: AMLODIPINE BESYLATE 10 MG TABLET PO SCH (11:35)
[2019-03-18] MEDS: TACROLIMUS ANHYDROUS 1 MG CAPSULE PO SCH ×2 (11:35→21:15)
[2019-03-18] MEDS: PREDNISONE 5 MG TABLET PO SCH (11:35)
--- NOTE | 2019-03-18 21:28 | PDOC PROGRESS REPORT ---
Subjective Progress Note for:: 03/18/19 Subjective:: Patient was seen by the bedside she has acute systolic heart failure Reason For Visit: PULMONARY EDEMA ? PNEUMONIA Physical Exam Vital Signs: Temp Pulse Resp BP Pulse Ox 97.6 F 80 20 119/57 L 100 03/18/19 19:50 03/18/19 19:50 03/18/19 19:50 03/18/19 19:50 03/18/19 19:50 Intake & Output 03/17/19 03/18/19 03/19/19 06:59 06:59 06:59 Intake Total 810 760 510 Output Total 100 1900 0 Balance 710 -1140 510 Weight 87.5 kg 87.3 kg General appearance: PRESENT: no acute distress Eye exam: PRESENT: PERRLA Respiratory exam: PRESENT: clear to auscultation staci Cardiovascular exam: PRESENT: +S1, +S2 GI/Abdominal exam: PRESENT: soft Neurological exam: PRESENT: alert Results Laboratory Results: 03/18/19 05:01 03/18/19 05:01 03/18/19 03/18/19 05:01 05:01 WBC 8.5 RBC 2.74 L Hgb 8.7 L Hct 27.2 L MCV 99 H MCH 31.8 MCHC 32.1 RDW 16.8 H Plt Count 217 Seg Neutrophils % 71.1 Sodium 136.0 L Potassium 3.9 Chloride 97 L Carbon Dioxide 29 Anion Gap 10 BUN 29 H Creatinine 5.26 H Est GFR ( Amer) 10 L Glucose 92 Calcium 9.3 Total Bilirubin 0.5 AST 12 L Alkaline Phosphatase 112 Total Protein 6.3 Albumin 3.5 03/15/19 03/15/19 03/15/19 04:29 20:39 20:39 Creatine Kinase 31 CK-MB (CK-2) 0.73 Troponin I 0.081 0.081 03/16/19 03/16/19 03/16/19 02:00 02:00 07:57 Creatine Kinase 32 27 L CK-MB (CK-2) 0.58 Troponin I 0.087 03/16/19 03/16/19 07:57 07:57 Creatine Kinase Cancelled CK-MB (CK-2) 0.34 Troponin I 0.086 Impressions: Chest X-Ray 03/15/19 00:00 IMPRESSION: Moderate mixed interstitial and airpace opacities. Differential diagnosis includes pulmonary edema/CHF, multifocal pneumonia, and chronic interstitial lung disease. Assessment & Plan - Diagnosis (1) Acute systolic heart failure Is this a current diagnosis for this admission?: Yes Plan: Continue treatment (2) End-stage renal disease on hemodialysis Is this a current diagnosis for this admission?: Yes
--- NOTE | 2019-03-18 21:59 | PDOC CONSULTATION ---
Consultation-Blank Consultation: CARDIOLOGY, consultation by Dr. Michelle Man on 03/18/2019. Patient seen at 3:30 PM. Patient is much awake and alert and gives a reasonable history. REASON FOR CONSULTATION: Patient admitted with heart failure and echocardiogram shows severe LV dysfunction. Hence cardiology consultation. CONSULT REQUESTING PHYSICIAN: Dr. Gay. 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 Past Surgical History Past Surgical History: Reports: Dialysis Access Surgery AVF - 02/07/2012, Nephrectomy - Left 02/09/2016; right 06/07/[address] Bush and El, Renal Artery Angioplasty, Renal Stent - Renal allograft renal artery, Renal Transplant, Vascular Surgery - HD fistula, Other - Angioplasty of right common iliac artery and right external iliac artery Social History Information Source: Patient, [facility] Records Lives with: Friend Smoking Status: Former Smoker Frequency of Alcohol Use: None Hx Recreational Drug Use: Yes Family History Family History: CAD - Brother, Chronic Kidney Disease - ADPKD on her mother, brother and sister, DM - Father, Hypertension - Mother, brother and sister, Malignancy - Prostate cancer in her father, lymphoma in her mother Parental Family History Reviewed: Yes Children Family History Reviewed: Yes Sibling(s) Family History Reviewed.: Yes Medication/Allergy Allergies/Adverse Reactions: Penicillins Allergy (Unknown, Verified 03/01/19 07:20) Review of Systems All systems: reviewed and no additional remarkable complaints except as stated Review of Systems: Constitutional: ABSENT: Fatigue, fever(s), headache(s), weight gain, weight loss; admits chills Eyes: ABSENT: visual disturbances Ears: ABSENT: hearing changes Cardiovascular: ABSENT: chest pain, edema, orthropnea, palpitations; admits dyspnea on exertion Respiratory: ABSENT: hemoptysis; admits nonproductive cough and dyspnea Gastrointestinal: ABSENT: abdominal pain, constipation, diarrhea, hematemesis, hematochezia, nausea, vomiting Genitourinary: ABSENT: dysuria, hematuria Musculoskeletal: ABSENT: joint swelling Integumentary: ABSENT: rash, wounds Neurological: ABSENT: abnormal gait, abnormal speech, confusion, dizziness, focal weakness, numbness, syncope Psychiatric: ABSENT: anxiety, depression Endocrine: ABSENT: cold intolerance, heat intolerance, polydipsia, polyuria Hematologic/Lymphatic: ABSENT: easy bleeding, easy bruising, lymphadenopathy PHYSICAL EXAMINATION: The patient is mildly obese. At present in no acute distress. She does have orthopnea but no PND or chest pains. Selected Entries 03/18/19 03/18/19 11:04 14:54 Temperature 97.9 F 98.3 F Temperature Oral Oral Source Pulse Rate 75 79 Respiratory 16 16 Rate Blood Pressure 121/56 L 123/62 Blood Pressure 77 82 Mean BP Location Right Arm Right Arm BP Position Supine Supine O2 Sat by Pulse 100 100 Oximetry Oxygen Flow 2.00 Rate Oxygen Delivery Nasal Cannula Room Air Method
[2019-03-19] MEDS ORDERED: EPOETIN ALFA INJ 20000 UNIT/1 ML VIAL (RENAL) IV PRN (05:00)
[2019-03-19] MEDS ORDERED: NORMAL SALINE 1000 ML 1,000 ML IV PRN (05:00)
[2019-03-19] MEDS: CARVEDILOL 3.125 MG TABLET PO SCH ×2 (05:14→17:40)
[2019-03-19] MEDS: HEPARIN SOD (PORCINE) 5,000 UNIT/ML 1 ML VIAL SUBCUT SCH ×3 (05:15→22:42)
[2019-03-19] MEDS: VALSARTAN 40 MG TABLET PO SCH ×2 (05:15→17:40)
[2019-03-19 06:41] LABS: HEMATOCRIT 25.4 % (36.0-47.0); HEMOGLOBIN 8.1 g/dL (12.0-15.5); MEAN CORPUSCULAR HEMOGLOBIN 31.5 pg (27.0-33.4); MEAN CORPUSCULAR HGB CONC 31.8 g/dL (32.0-36.0); MEAN CORPUSCULAR VOLUME 99 fl (80-97); PLATELET COUNT 238 10^3/uL (150-450); RED BLOOD COUNT 2.56 10^6/uL (3.72-5.28); RED CELL DISTRIBUTION WIDTH 16.9 % (11.5-14.0); WHITE BLOOD COUNT 9.4 10^3/uL (4.0-10.5)
[2019-03-19 07:00] LABS: ANION GAP 11 (5-19); BLOOD UREA NITROGEN 36 mg/dL (7-20); CALCIUM 9.3 mg/dL (8.4-10.2); CARBON DIOXIDE 29 mmol/L (22-30); CHLORIDE 94 mmol/L (98-107); GLUCOSE 85 mg/dL (75-110); POTASSIUM 4.1 mmol/L (3.6-5.0)
[2019-03-19] MEDS ORDERED: EPOETIN ALFA-EPBX 20,000 UNITS (ESRD) in SYRINGE IV PRN (08:00)
[2019-03-19] MEDS: CALCIUM ACETATE 667 MG CAPSULE PO SCH ×3 (09:00→17:39)
--- NOTE | 2019-03-19 09:30 | PDOC PROGRESS REPORT ---
Subjective Progress Note for:: 03/19/19 Subjective:: I am seeing the patient in dialysis this morning. She is comfortable without any oxygen on. Currently she is a stable and tolerating dialysis. She states that she is having some chest pain especially at night. Dr. Man, commercial construction estimator had seen her. Her appetite is also not that great and her solid and fluid intakes are not much. Reason For Visit: PULMONARY EDEMA ? PNEUMONIA Physical Exam Vital Signs: Temp Pulse Resp BP Pulse Ox 98.5 F 77 22 H 119/55 L 99 03/19/19 03:37 03/19/19 07:00 03/19/19 03:37 03/19/19 03:37 03/19/19 03:37 Intake & Output 03/18/19 03/19/19 03/20/19 06:59 06:59 06:59 Intake Total 760 710 Output Total 1900 0 Balance -1140 710 Weight 87.3 kg Vitals during dialysis: Blood pressure 138/82, heart rate of 74, blood flow rate of 450 mL/min and dialysate flow rate of 800 mL/min. Exam: General appearance: PRESENT: no acute distress, cooperative, well-developed, well-nourished Head exam: PRESENT: atraumatic, normocephalic Eye exam: PRESENT: conjunctiva slightly pale, PERRLA. ABSENT: scleral icterus Neck exam: ABSENT: JVD Respiratory exam: PRESENT: Diminished breath sounds. ABSENT: crackles, rales, rhonchi, unlabored, wheezes Cardiovascular exam: PRESENT: Regular rate rhythm -+S1, +S2. ABSENT: diastolic murmur, systolic murmur GI/Abdominal exam: PRESENT: normal bowel sounds, soft. ABSENT: guarding, mass, tenderness Extremities exam: ABSENT: No edema Neurological exam: PRESENT: alert, awake, oriented to person, place and time. Skin exam: PRESENT: dry, warm, Results Laboratory Results: 03/19/19 05:39 03/19/19 05:39 03/19/19 03/19/19 05:39 05:39 WBC 9.4 RBC 2.56 L Hgb 8.1 L Hct 25.4 L MCV 99 H MCH 31.5 MCHC 31.8 L RDW 16.9 H Plt Count 238 Sodium 133.8 L Potassium 4.1 Chloride 94 L Carbon Dioxide 29 Anion Gap 11 BUN 36 H Creatinine 7.24 H Est GFR ( Amer) 7 L Glucose 85 Calcium 9.3 03/15/19 03/15/19 03/15/19 04:29 20:39 20:39 Creatine Kinase 31 CK-MB (CK-2) 0.73 Troponin I 0.081 0.081 03/16/19 03/16/19 03/16/19 02:00 02:00 07:57 Creatine Kinase 32 27 L CK-MB (CK-2) 0.58 Troponin I 0.087 03/16/19 03/16/19 07:57 07:57 Creatine Kinase Cancelled CK-MB (CK-2) 0.34 Troponin I 0.086 Impressions: Chest X-Ray 03/15/19 00:00 IMPRESSION: Moderate mixed interstitial and airpace opacities. Differential diagnosis includes pulmonary edema/CHF, multifocal pneumonia, and chronic interstitial lung disease. Assessment & Plan - Diagnosis (1) ESRD (end stage renal disease) Is this a current diagnosis for this admission?: Yes Plan: We will do dialysis today for 3 hours, using the patient's AV fistula, with 3 potassium bath, blood flow rate of 450 mL per minute, dialysate flow rate of 800 mL per minute, ultrafiltration 1 to 2 L as tolerated, no heparin and Procrit with 20,000 units during dialysis intravenously. Dialysis prescription plan discussed with her dialysis nurse today. Patient will be monitored throughout dialysis treatment. (2) Acute systolic heart failure Is this a current diagnosis for this admission?: Yes Plan: From echocardiogram on 03/16/2019, LVEF of 25% with global hypokinesia, moderate MR and mild TR. Patient would need cardiology to follow. Patient seen by Dr. Man. (3) Acute pulmonary edema Is this a current diagnosis for this admission?: Yes Plan: Resolved. (4) Hypertension Is this a current diagnosis for this admission?: Yes Plan: Well-controlled. (5) Anemia in chronic kidney disease (CKD) Is this a current diagnosis for this admission?: Yes Plan: Procrit during dialysis treatment as needed. (6) Hyponatremia Is this a current diagnosis for this admission?: Yes Plan: Mild. (7) ADPKD (autosomal dominant polycystic kidney disease) Is this a current diagnosis for this admission?: Yes (8) Status post -donor kidney transplantation Is this a current diagnosis for this admission?: Yes Plan: Kidney allograft has failed. Continue immunosuppressants. - Time Time with patient: 15-25 minutes
[2019-03-19] MEDS: VENLAFAXINE HCL 75 MG CAP.SR.24H PO SCH (14:33)
[2019-03-19] MEDS: TACROLIMUS ANHYDROUS 1 MG CAPSULE PO SCH ×2 (14:34→22:40)
[2019-03-19] MEDS: PREDNISONE 5 MG TABLET PO SCH (14:35)
[2019-03-19] MEDS: AMLODIPINE BESYLATE 10 MG TABLET PO SCH (14:35)
[2019-03-19] MEDS: FUROSEMIDE 80 MG TABLET PO SCH (14:36)
--- NOTE | 2019-03-19 18:42 | PDOC PROGRESS REPORT ---
Subjective Progress Note for:: 03/19/19 Subjective:: She had hemodialysis today, she was seen by cardiology Dr. Man for the cardiomyopathy, medication was adjusted, I discussed the case with team the plan is for outpatient follow-up, she will need further testing including a repeat 2D echo in 3 months to determine need for AICD/pacemaker placement Reason For Visit: PULMONARY EDEMA ? PNEUMONIA Physical Exam Vital Signs: Temp Pulse Resp BP Pulse Ox 98.5 F 74 22 H 119/55 L 99 03/19/19 03:37 03/19/19 15:00 03/19/19 03:37 03/19/19 03:37 03/19/19 03:37 Intake & Output 03/18/19 03/19/19 03/20/19 06:59 06:59 06:59 Intake Total 760 710 Output Total 1900 0 1500 Balance -1140 710 -1500 Weight 87.3 kg 87.3 kg General appearance: PRESENT: no acute distress Eye exam: PRESENT: PERRLA Respiratory exam: PRESENT: clear to auscultation staci Cardiovascular exam: PRESENT: +S1, +S2 GI/Abdominal exam: PRESENT: soft Neurological exam: PRESENT: alert Results Laboratory Results: 03/19/19 05:39 03/19/19 05:39 03/19/19 03/19/19 05:39 05:39 WBC 9.4 RBC 2.56 L Hgb 8.1 L Hct 25.4 L MCV 99 H MCH 31.5 MCHC 31.8 L RDW 16.9 H Plt Count 238 Sodium 133.8 L Potassium 4.1 Chloride 94 L Carbon Dioxide 29 Anion Gap 11 BUN 36 H Creatinine 7.24 H Est GFR ( Amer) 7 L Glucose 85 Calcium 9.3 03/15/19 03/15/19 03/15/19 04:29 20:39 20:39 Creatine Kinase 31 CK-MB (CK-2) 0.73 Troponin I 0.081 0.081 03/16/19 03/16/19 03/16/19 02:00 02:00 07:57 Creatine Kinase 32 27 L CK-MB (CK-2) 0.58 Troponin I 0.087 03/16/19 03/16/19 07:57 07:57 Creatine Kinase Cancelled CK-MB (CK-2) 0.34 Troponin I 0.086 Impressions: Chest X-Ray 03/15/19 00:00 IMPRESSION: Moderate mixed interstitial and airpace opacities. Differential diagnosis includes pulmonary edema/CHF, multifocal pneumonia, and chronic interstitial lung disease. Assessment & Plan - Diagnosis (1) Acute systolic heart failure Is this a current diagnosis for this admission?: Yes (2) End-stage renal disease on hemodialysis Is this a current diagnosis for this admission?: Yes
--- NOTE | 2019-03-19 21:44 | Progress Note ---
Provider Note Provider Note: CARDIOLOGY PROGRESS NOTE by Dr. Michelle Barcenas on 03/19/2019. SUBJECTIVE: The patient states that shortness of breath is much improved. She still has some orthopnea. There is no chest pain or discomfort. There is no palpitations. There is no PND or leg edema. The patient is tolerating the increase doses of beta-brain and ARB. There is no atrial or ventricular arrhythmia seen on the monitor. There is at present trace leg edema. PHYSICAL EXAMINATION: The patient is mildly obese. In no acute distress. She is well-groomed. Selected Entries 03/19/19 06:56 Temperature 98.3 F Temperature Oral Source Pulse Rate 77 Respiratory 16 Rate Blood Pressure 114/46 L Blood Pressure 68 Mean BP Location Right Arm BP Position Supine O2 Sat by Pulse 100 Oximetry Oxygen Delivery Room Air Method HEAD: Is atraumatic normocephalic. EYES: Pupils are equal round regular reactive to light and accommodation. Extraocular movements are normal. There is no conjunctival pallor. There is no scleral icterus. EARS: Tympanic membranes are intact. External auditory canals are clear. NOSE: There is no deviated nasal septum. There is no inflammation nasal mucous membrane. MOUTH: Mucous membranes of the mouth are moist there is no bleeding from the gums. THROAT: There is no redness of the oropharynx. There is no exudates. SKIN: There is no skin rashes. There is no skin lesions. There is no petechia or ecchymosis. NECK: Is supple. There is no JVD. Carotids equal there is no bruit. There is no lymphadenopathy. There is no goiter. NO accessory muscle respiration use. Trachea central. LUNGS: Is clear to auscultation percussion. There is no rhonchi rales or wheezing. HEART: S1-S2 is heard. There is no S3 gallop. There is no S4 gallop. There is systolic murmur of mitral regurgitation and tricuspid regurgitation present. There is murmur of aortic sclerosis present.. THERE IS NO RUBS. Abdomen: Soft. There is no hepatospleno megaly. Bowel sounds are well heard. EXTREMITIES: Femorals are diminished. There is faint bilateral femoral bruits. Leg pulses are diminished. There is no there is trace pedal edema. There is no cyanosis or clubbing. There is no DVT or cellulitis. 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 There is mild left-sided rate is residual weakness which is minimal. PSYCHIATRIC: The patient judgment insight are intact her affect is normal. Labs- All tests 24 hr 03/19/19 03/19/19 05:39 05:39 WBC 9.4 RBC 2.56 L Hgb 8.1 L Hct 25.4 L MCV 99 H MCH 31.5 MCHC 31.8 L RDW 16.9 H Plt Count 238 Sodium 133.8 L Potassium 4.1 Chloride 94 L Carbon Dioxide 29 Anion Gap 11 BUN 36 H Creatinine 7.24 H Est GFR ( Amer) 7 L Est GFR (MDRD) Non-Af 6 L Glucose 85 Calcium 9.3 Chest X-Ray 03/15/19 00:00 IMPRESSION: Moderate mixed interstitial and airpace opacities. Differential diagnosis includes pulmonary edema/CHF, multifocal pneumonia, and chronic interstitial lung disease. Chest X-Ray 03/15/19 00:00 IMPRESSION: Improving CHF. IMPRESSIONS/RECOMMENDATION: 1. Acute on chronic left ventricular systolic heart failure. Continue current beta-blockers and ARB and dialysis. 2. Cardiomyopathy with severely reduced LV ejection fraction. Later once the patient stabilizes and is free of congestive heart failure then would recommend that the patient have IV Lexiscan Cardiolite stress test to make sure that there is no coronary artery disease causing the patient's cardiomyopathy. His Lexiscan Cardiolite can be done as an outpatient. Also the patient would need a repeat echocardiogram in 3 months and if the ejection fraction is 35% or below then she would be referred for AICD placement. 3. End-stage renal disease on hemodialysis. Continue the same. 4. Hypertension: Blood pressures well controlled 5. Peripheral vascular disease: At present the patient is asymptomatic, but the patient has not done a lot of walking. 6. Prior history of CVA. No recurrence. The patient has not been very minimal mild residual defect from a prior CVA. 7. 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 Medications reviewed note the patient's medications have been increased.. We will further increase the medications as tolerated. This can be done as an outpatient management plan discussed with attending physician on the case. Medical decision making is of high complexity. The management plan has been discussed with attending physician and the senior accountant cpa. 40 minutes spent on this patient with more than 50% of time spent direct patient care. Will sign off and follow the patient in the office, as she desires to follow-up with me.
[2019-03-20] MEDS: VALSARTAN 40 MG TABLET PO SCH ×2 (06:19→17:20)
[2019-03-20] MEDS: CARVEDILOL 3.125 MG TABLET PO SCH ×2 (06:22→17:20)
[2019-03-20] MEDS: HEPARIN SOD (PORCINE) 5,000 UNIT/ML 1 ML VIAL SUBCUT SCH ×3 (06:23→22:05)
[2019-03-20] MEDS: VENLAFAXINE HCL 75 MG CAP.SR.24H PO SCH (09:38)
[2019-03-20] MEDS: CALCIUM ACETATE 667 MG CAPSULE PO SCH ×3 (09:38→17:20)
[2019-03-20] MEDS: FUROSEMIDE 80 MG TABLET PO SCH (09:38)
[2019-03-20] MEDS: AMLODIPINE BESYLATE 10 MG TABLET PO SCH (09:38)
[2019-03-20] MEDS: PREDNISONE 5 MG TABLET PO SCH (10:58)
[2019-03-20] MEDS: TACROLIMUS ANHYDROUS 1 MG CAPSULE PO SCH ×2 (10:58→22:06)
--- NOTE | 2019-03-20 16:35 | PDOC DISCHARGE SUMMARY ---
General - Admit/Disc Date/PCP Admission Date/Primary Care Provider: 03/15/19 15:29 MAURICE SINGH MD Discharge Date: 03/20/19 - Discharge Diagnosis (1) Acute systolic heart failure Is this a current diagnosis for this admission?: Yes (2) End-stage renal disease on hemodialysis Is this a current diagnosis for this admission?: Yes (3) Acute pulmonary edema Is this a current diagnosis for this admission?: Yes (4) Secondary hyperparathyroidism (of renal origin) Is this a current diagnosis for this admission?: Yes (5) Status post -donor kidney transplantation Is this a current diagnosis for this admission?: Yes - Additional Information Discharge Diet: Cardiac, Other (Comments) Discharge Activity: Activity As Tolerated, Balance Activity w/Rest, Weigh Daily Prescriptions: RX: Carvedilol [Coreg 3.125 mg Tablet] 6.25 mg PO Q12A #60 tablet RX: Valsartan [Diovan 40 mg Tablet] 80 mg PO Q12A #60 tablet Home Medications: RX: Amlodipine Besylate [Norvasc 10 mg Tablet] 10 mg PO DAILY 03/15/19 RX: Calcium Acetate [Phoslo 667 mg Capsule] 1,334 mg PO MEALS 03/15/19 RX: Clonidine [Catapres-Tts 1 (0.1 mg/24 Hr) Transderm Patch] 1 patch TOP FERRO@1000 03/15/19 RX: Furosemide [Lasix 80 mg Tablet] 80 mg PO DAILY 03/15/19 RX: Mycophenolate Sodium [Mycophenolic Acid] 540 mg PO BID 03/15/19 RX: Prednisone [Deltasone 5 mg Tablet] 5 mg PO DAILY 03/15/19 RX: Tacrolimus Anhydrous [Prograf 1 mg Capsule] 4 mg PO Q12 03/15/19 RX: Venlafaxine HCl [Effexor Xr] 150 mg PO DAILY 03/15/19 RX: Carvedilol [Coreg 3.125 mg Tablet] 6.25 mg PO Q12A #60 tablet 03/20/19 RX: Valsartan [Diovan 40 mg Tablet] 80 mg PO Q12A #60 tablet 03/20/19 History of Present Illness History of Present Illness: SANGEETA STEPHENS is a 58 year old female, Patient called me in the middle of the night that she was having difficulty breathing she wanted to know what she should do, I immediately advised to go to the emergency room for evaluation, went she arrived in the ER, chest x-ray was done, she was found to be in pulmonary edema, breathing was supported with noninvasive positive pressure diane tilation and she needed immediate dialysis, she was kept in emergency room until the morning hours when she had hemodialysis in the ER. She has a history of polycystic kidney disease complicated with end-stage renal disease she was on maintenance hemodialysis ultimately had kidney transplant, it seems that the kidney transplant has failed, she is now back on maintenance hemodialysis, she is status post bilateral lime nephrectomy.The chest x-ray is consistent with CHF picture, after hemodialysis a 2D echo will be ordered to assess LV function Hospital Course Hospital Course: Patient was admitted for the management of acute pulmonary edema, she is on maintenance hemodialysis. Her presentation was consistent with acute systolic heart failure a 2D echo was done that demonstrated ejection fraction of 25%. Consultation was requested from cardiology, she was seen by Dr. Man, on this admission she was started on beta-brain carvedilol, ARB valsartan. The dose was adjusted by Dr. Man. The plan is for patient to be discharged home she will follow-up with Dr. Man outpatient for further testing including a repeat 2D echo in 3 months to determine eligibility for AICD/defibrillator. She may also need to have outpatient stress test to determine if there is underlying ischemic heart disease. She was seen today she complained of fatigue which is expected in cardiomyopathy Physical Exam Vital Signs: Temp Pulse Resp BP Pulse Ox 97.7 F 73 18 124/58 L 100 03/20/19 11:18 03/20/19 11:18 03/20/19 11:18 03/20/19 11:18 03/20/19 11:18 Intake & Output 03/19/19 03/20/19 03/21/19 06:59 06:59 06:59 Intake Total 710 475 175 Output Total 0 1500 0 Balance 710 -1025 175 Weight 87.3 kg 84.6 kg General appearance: PRESENT: no acute distress, well-developed, well-nourished Head exam: PRESENT: atraumatic, normocephalic Eye exam: PRESENT: conjunctiva pink, EOMI, PERRLA Ear exam: PRESENT: normal external ear exam Mouth exam: PRESENT: moist, tongue midline Neck exam: PRESENT: full ROM Respiratory exam: PRESENT: clear to auscultation staci Cardiovascular exam: PRESENT: RRR, +S1, +S2 Pulses: PRESENT: normal dorsalis pedis pul, +2 pedal pulses bilateral Vascular exam: PRESENT: normal capillary refill GI/Abdominal exam: PRESENT: normal bowel sounds, soft Rectal exam: PRESENT: deferred Neurological exam: PRESENT: alert, awake, oriented to person, oriented to place, oriented to time, oriented to situation, CN II-XII grossly intact Psychiatric exam: PRESENT: appropriate affect, normal mood Skin exam: PRESENT: dry, intact, warm. ABSENT: cyanosis, rash Results Laboratory Results: 03/19/19 05:39 03/19/19 05:39 03/15/19 06:04 Blood Blood Culture - Final NO GROWTH IN 5 DAYS 03/15/19 04:42 Blood Blood Culture - Final NO GROWTH IN 5 DAYS 03/15/19 03/15/19 03/15/19 04:29 20:39 20:39 Creatine Kinase 31 CK-MB (CK-2) 0.73 Troponin I 0.081 0.081 03/16/19 03/16/19 03/16/19 02:00 02:00 07:57 Creatine Kinase 32 27 L CK-MB (CK-2) 0.58 Troponin I 0.087 03/16/19 03/16/19 07:57 07:57 Creatine Kinase Cancelled CK-MB (CK-2) 0.34 Troponin I 0.086 Impressions: Chest X-Ray 03/15/19 00:00 IMPRESSION: Moderate mixed interstitial and airpace opacities. Differential diagnosis includes pulmonary edema/CHF, multifocal pneumonia, and chronic interstitial lung disease. Qualifiers - * PATIENT BEING DISCHARGED WITH ANY OF THE FOLLOWING DIAGNOSIS: No VTE patient discharged on overlapping Therapy?: No Reason(s) for not prescribing Overlap Therapy:: Not indicated Stroke Pt being discharged on Anti-thrombolytic therapy?: No Reason(s) for not prescribing Anti-thrombolytic therapy:: Not indicated Stroke Pt being discharged on Anti-coagulation therapy?: No Reason(s) for not prescribing Anti-coagulation therapy:: Not indicated Stroke Pt being discharged on Statins?: No Reason(s) for not prescribing Statins therapy:: Not indicated MO Pt being discharged on Aspirin therapy?: No Reason(s) for not prescribing Aspirin therapy:: Not indicated MO Pt being discharged on Statins?: No Reason(s) for not prescribing Statin therapy:: Not indicated MO Pt discharged ACEI/ARBS?: No Reason(s) for not prescribing ACEI/ARBS:: Not indicated Acute Heart Failure - Is this a Heart Failure Patient?: Yes Documentation of LVEF assessment?: Yes LVEF < 40%?: Yes-if yes answer questions a through e a) Discharged on ACEI?: Yes b) Discharges on ARB?: Yes c) Discharged on ARNI?: No-Document Contraindications Reason(s) not discharged on ARNI: New onset heart failure, Other d) Discharged on evidence-based Beta brain(carvedilol, sustained release metoprolol succinate, or bisoprolol)?: Yes e) For LVEF <35%, discharged on Aldosterone antagonist?: No-document contraincations Reason(s) not discharged on Aldosterone antagonist for LVEF < 35%: Other - This is a new onset systolic heart failure she will need a repeat 2D echo in 3 months to determine need for aldosterone antagonist
[2019-03-21] MEDS: VALSARTAN 40 MG TABLET PO SCH (06:04)
[2019-03-21] MEDS: HEPARIN SOD (PORCINE) 5,000 UNIT/ML 1 ML VIAL SUBCUT SCH (06:04)
[2019-03-21] MEDS: CARVEDILOL 3.125 MG TABLET PO SCH (06:04)
[2019-03-21] MEDS: CALCIUM ACETATE 667 MG CAPSULE PO SCH ×2 (09:07→12:40)
[2019-03-21] MEDS: FUROSEMIDE 80 MG TABLET PO SCH (09:07)
[2019-03-21] MEDS: VENLAFAXINE HCL 75 MG CAP.SR.24H PO SCH (09:07)
[2019-03-21] MEDS: AMLODIPINE BESYLATE 10 MG TABLET PO SCH (09:07)
[2019-03-21] MEDS: TACROLIMUS ANHYDROUS 1 MG CAPSULE PO SCH (09:07)
[2019-03-21] MEDS: PREDNISONE 5 MG TABLET PO SCH (09:08)
[2019-03-21] MEDS ORDERED: CLONIDINE 0.1 MG/24 HR PATCH.TDWK TOP SCH (10:00)
[2019-03-21 13:03] VITALS: BP 131/67
== END 2019-03-21 13:20 | disposition home or self-care (01) | DRG 291 ==
LOC: ER 04:11 → EH 15:29 → 3N 18:40
PROVIDERS: ADMIT Internal Medicine; ATTEND Internal Medicine
PROC: 5A09457 Assistance with Respiratory Ventilation, 24-96 Consecutive Hours, Continuous Positive Airway Pressure (ICD-10-PCS; principal; 2019-03-15)
PROC: 5A1D70Z Performance of Urinary Filtration, Intermittent, Less than 6 Hours Per Day (ICD-10-PCS; 2019-03-15)
PROC: 5A1D70Z Performance of Urinary Filtration, Intermittent, Less than 6 Hours Per Day (ICD-10-PCS; 2019-03-17)
PROC: 5A1D70Z Performance of Urinary Filtration, Intermittent, Less than 6 Hours Per Day (ICD-10-PCS; 2019-03-19)
DX: I13.2 Hypertensive heart and chronic kidney disease with heart failure and with stage 5 chronic kidney disease, or end stage renal disease (principal); N18.6 End stage renal disease; I50.23 Acute on chronic systolic (congestive) heart failure; N25.81 Secondary hyperparathyroidism of renal origin; Q61.2 Polycystic kidney, adult type; I69.354 Hemiplegia and hemiparesis following cerebral infarction affecting left non-dominant side; Z94.0 Kidney transplant status; E87.1 Hypo-osmolality and hyponatremia; I16.9 Hypertensive crisis, unspecified; I42.0 Dilated cardiomyopathy; E78.5 Hyperlipidemia, unspecified; E66.9 Obesity, unspecified; E83.42 Hypomagnesemia; E83.39 Other disorders of phosphorus metabolism; M10.9 Gout, unspecified; F32.9 Major depressive disorder, single episode, unspecified; D63.1 Anemia in chronic kidney disease; I08.1 Rheumatic disorders of both mitral and tricuspid valves; E78.00 Pure hypercholesterolemia, unspecified; I73.9 Peripheral vascular disease, unspecified; Z79.52 Long term (current) use of systemic steroids; Z79.899 Other long term (current) drug therapy; Z99.2 Dependence on renal dialysis; Z88.0 Allergy status to penicillin; Z87.891 Personal history of nicotine dependence; Z82.49 Family history of ischemic heart disease and other diseases of the circulatory system; Z84.1 Family history of disorders of kidney and ureter; Z80.42 Family history of malignant neoplasm of prostate
CPT/HCPCS: 36415; 71045; 80048; 80053; 80061; 80076; 80307; 81001; 82140; 82150; 82550; 82553; 82803; 82962; 83036; 83605; 83690; 83735; 84100; 84439; 84443; 84484; 85025; 85027; 85610; 85730; 87040; 87086; 93005; 93010; 93306; 94660; 96374; 99291; G0257; J1644; J1940; J3490; J7507; J7512; Q5105

== ENCOUNTER 2019-04-16 19:47 | Emergency (ER) | payer MEDICARE, MEDICAID ==
[2019-04-16] MEDS ORDERED: TETRACAINE HCL 0.5% OPH SOLN 4 ML OD ONE (20:03)
--- NOTE | 2019-04-16 20:06 | ER Document Report ---
ED Medical Screen (RME) - General Chief Complaint: Eye Problem Stated Complaint: RIGHT EYE PAIN Time Seen by Provider: 04/16/19 19:56 Primary Care Provider: MAURICE SINGH MD [Primary Care Provider] - Follow up as needed Mode of Arrival: Wheelchair Information source: Patient Notes: This 58-year-old female with history of dialysis and stroke reports that she was just watching TV when her right eye started hurting. She denies problems with her vision. Sub-conjunctive via hemorrhage noted with swelling. Complaints of trauma. I have greeted and performed a rapid initial assessment of this patient. A comprehensive ED assessment and evaluation of the patient, analysis of test results and completion of the medical decision making process will be conducted by additional ED providers. Dictation of this chart was performed using voice recognition software; therefore, there may be some unintended grammatical errors. TRAVEL OUTSIDE OF THE [place] IN LAST 30 DAYS: No - Related Data Allergies/Adverse Reactions: Penicillins Allergy (Unknown, Verified 03/01/19 07:20) Past Medical History - Social History Frequency of alcohol use: None Drug Abuse: Marijuana - Past Medical History Cardiac Medical History: Reports: Hx Hypercholesterolemia, Hx Hypertension, Hx Peripheral Vascular Disease Denies: Hx Coronary Artery Disease, Hx Heart Attack Pulmonary Medical History: Denies: Hx Asthma, Hx Bronchitis, Hx COPD, Hx Pneumonia Neurological Medical History: Reports: Hx Cerebrovascular Accident - 2005. D enies: Hx Seizures Renal/ Medical History: Reports: Hx End Stage Renal Disease. Denies: Hx Peritoneal Dialysis GI Medical History: Reports: Hx Diverticulitis Musculoskeltal Medical History: Reports Hx Arthritis, Reports Hx Gout Psychiatric Medical History: Reports: Hx Depression Past Surgical History: Reports: Hx Urinary Tract Surgery - Kidney transplant, Hx Vascular Surgery - HD fistula, Other - Angioplasty of right common iliac artery and right external iliac artery. Denies: Hx Pacemaker - Immunizations Hx Diphtheria, Pertussis, Tetanus Vaccination: No Physical Exam - Vital signs Vitals: Temp Pulse Resp BP Pulse Ox 99.3 F 94 17 148/55 H 95 04/16/19 19:53 04/16/19 19:53 04/16/19 19:53 04/16/19 19:53 04/16/19 19:53 Course - Vital Signs Vital signs: Temp Pulse Resp BP Pulse Ox 99.3 F 94 17 148/55 H 95 04/16/19 19:53 04/16/19 19:53 04/16/19 19:53 04/16/19 19:53 04/16/19 19:53 Doctor's Discharge - Discharge Referrals: MAURICE SINGH MD [Primary Care Provider] - Follow up as needed
[2019-04-17] MEDS ORDERED: POLYMYXIN B SULFATE/TMP OPH SOLN (10 ML/ER DISP) OD PRN (01:39)
--- NOTE | 2019-04-17 01:45 | ER Document Report ---
ED General - General Chief Complaint: Eye Problem Stated Complaint: RIGHT EYE PAIN Time Seen by Provider: 04/16/19 19:56 Primary Care Provider: MAURICE SINGH MD [Primary Care Provider] - Follow up as needed Mode of Arrival: Wheelchair Notes: 58-year-old female presents emergency department complaining of pain and swelling of the right eye that onset today. Patient states that they both started together, states that it looks like her eye is bleeding but no blood is coming out. Denies any pain at the lid, denies any change in her vision, denies any pain with eye movement. Denies any fevers or trauma. Patient states that she generally cannot see very well out of either eye, wears prescription glasses but does not have them with her. Does not know what her prescription is. Denies any problems with her eyes aside from needing glasses. Denies any history of glaucoma. Denies any eye injury. Denies any fevers, any pain anywhere else, any blurry vision compared to baseline, any change with light. Patient is a dialysis patient followed by Dr. Dukes. TRAVEL OUTSIDE OF THE [place] IN LAST 30 DAYS: No - Related Data Allergies/Adverse Reactions: Penicillins Allergy (Unknown, Verified 03/01/19 07:20) Past Medical History - General Information source: Patient - Social History Smoking Status: Former Smoker Frequency of alcohol use: None Drug Abuse: Marijuana Family History: Reviewed & Not Pertinent, Hypertension Patient has suicidal ideation: No Patient has homicidal ideation: No - Past Medical History Cardiac Medical History: Reports: Hx Hypercholesterolemia, Hx Hypertension, Hx Peripheral Vascular Disease Denies: Hx Coronary Artery Disease, Hx Heart Attack Pulmonary Medical History: Denies: Hx Asthma, Hx Bronchitis, Hx COPD, Hx Pneumonia Neurological Medical History: Reports: Hx Cerebrovascular Accident - 2005. Denies: Hx Seizures Renal/ Medical History: Reports: Hx End Stage Renal Disease. Denies: Hx Peritoneal Dialysis GI Medical History: Reports: Hx Diverticulitis Musculoskeletal Medical History: Reports Hx Arthritis, Reports Hx Gout Psychiatric Medical History: Reports: Hx Depression Past Surgical History: Reports: Hx Urinary Tract Surgery - Kidney transplant, Hx Vascular Surgery - HD fistula, Other - Angioplasty of right common iliac artery and right external iliac artery. Denies: Hx Pacemaker - Immunizations Hx Diphtheria, Pertussis, Tetanus Vaccination: No Hx Pneumococcal Vaccination: 11/01/19 Review of Systems - Review of Systems Constitutional: No symptoms reported EENT: See HPI -: Yes All other systems reviewed and negative Physical Exam - Vital signs Vitals: Temp Pulse Resp BP Pulse Ox 99.3 F 94 17 148/55 H 95 04/16/19 19:53 04/16/19 19:53 04/16/19 19:53 04/16/19 19:53 04/16/19 19:53 Interpretation: Hypertensive - Notes Notes: GENERAL: Alert, interacts well. No acute distress. HEAD: Normocephalic, atraumatic EYES: Pupils equal, round and reactive to light, extraocular movements intact. Marked ecchymosis of the right eye with some conjunctival hemorrhage from approximately the 1 o'clock position to approximately the 10 o'clock position. Able to close the eye fully, intraocular pressure was difficult to measure on the right eye but when the patient was only resisting a little bit it was approximately 24. During visual acuity testing for PCT patient stated she could not see anything however for me she was able to count fingers, describe my glasses and describe my hair when I was sitting 4 to 5 feet away. Patient states that this is exactly how her vision is usually when she does not have her glasses. ENT: Oral mucosa moist, tongue midline. NECK: Full range of motion, supple, trachea midline. LUNGS: Clear to auscultation bilaterally, no wheezes, rales or rhonchi, no respiratory distress. HEART: Regular rate and rhythm, no murmurs, gallops, rubs. ABDOMEN: Soft, nontender, nondistended, bowel sounds present in all 4 quadrants. EXTREMITIES: Moves all 4 extremities spontaneously, no edema, radial and dorsalis pedis pulses 2/4 bilaterally. No cyanosis. Fistula in the left upper extremity with good thrill. NEUROLOGICAL: Alert and oriented x3, normal speech, cranial nerves II through XII grossly intact. PSYCH: Normal mood, normal affect. SKIN: Warm, Dry, normal turgor, no rashes or lesions noted. - HEENT Corrective lenses worn: Yes - unable able to visualize see pct note. Course - Re-evaluation Re-evalutation: 04/17/19 01:44 There is no change in this patient's vision, there is no trauma. I do not know what caused the sub-conjunctival hemorrhage. Patient is a very poor historian. This hemorrhage in the ecchymosis may be related to side effects of renal failure however I think it is prudent to treat the patient with antibiotic eyedrops as ecchymosis can frequently be due to infection as well. Patient will be started on Polytrim eyedrops and asked to follow-up with ophthalmology or optometry as soon as possible as an outpatient. Patient is recommended to follow-up with her regular poultry trimmer at the eye center if possible on Friday. - Vital Signs Vital signs: Temp Pulse Resp BP Pulse Ox 99.3 F 94 17 148/55 H 95 04/16/19 19:53 04/16/19 19:53 04/16/19 19:53 04/16/19 19:53 04/16/19 19:53 Discharge - Discharge Clinical Impression: Subconjunctival hemorrhage of right eye, Chemosis of right conjunctiva, ESRD (end stage renal disease) Condition: Stable Disposition: HOME, SELF-CARE Additional Instructions: Eyedrop Use Eyedrops are most easily applied by pulling down on the cheek just below the lower eyelid. The lower lid will pop out to form a pouch into which you can drop the medicine. A small brief sting is not unusual, especially if the eye is reddened and irritated already. Use the drops exactly as recommended. You should see the doctor at once if there is a decrease in vision, swelling of the eye, or an increase in discomfort. You have some bleeding around the right eye, which is usually caused by a burst capillary, but can be caused by irritation from an eye infection as well as rubbing at the eye. I have prescribed you eyedrops to use 1 drop every 6 hours until seen by ophthalmology. It is very important that you have your eye rechecked by an poultry trimmer or an sweat box attendant within the next few days. If your pain worsens, if the swelling increases, if you develop any decrease in your vision or any new or concerning symptoms please return to the emergency department immediately. Referrals: MAURICE SINGH MD [Primary Care Provider] - Follow up as needed RIA BARKLEY MD [ACTIVE STAFF] - Follow up as needed
[2019-04-17 02:27] VITALS: BP 152/67
== END 2019-04-17 02:20 | disposition home or self-care (01) ==
LOC: ER 19:47
DX: H11.31 Conjunctival hemorrhage, right eye (principal); H11.421 Conjunctival edema, right eye; I12.0 Hypertensive chronic kidney disease with stage 5 chronic kidney disease or end stage renal disease; N18.6 End stage renal disease; H57.11 Ocular pain, right eye; H57.89 Other specified disorders of eye and adnexa; Z87.891 Personal history of nicotine dependence
CPT/HCPCS: 99283; J3490 ×2

== ENCOUNTER 2019-06-25 00:17 | Inpatient (IN) | payer MEDICARE, MEDICAID ==
[2019-06-25] MEDS: NITROGLYCERIN/D5W 50 MG/250 ML RTUINJ IV ONE ×2 (00:26→01:48)
[2019-06-25 00:42] LABS: ABSOLUTE BASOPHILS # (AUTO) 0.1 10^3/uL (0.0-0.2); ABSOLUTE EOSINOPHILS # (AUTO) 0.1 10^3/uL (0.0-0.6); ABSOLUTE LYMPHOCYTES (AUTO) 4.9 10^3/uL (0.5-4.7); ABSOLUTE NEUT (AUTO) 8.7 10^3/uL (1.7-8.2); BASOPHILS % (AUTO) 0.5 % (0-2); EOSINOPHILS % (AUTO) 0.8 % (0-6); HEMATOCRIT 35.8 % (36.0-47.0); HEMOGLOBIN 10.9 g/dL (12.0-15.5); LYMPHOCYTES % (AUTO) 33.1 % (13-45); MEAN CORPUSCULAR HEMOGLOBIN 30.5 pg (27.0-33.4); MEAN CORPUSCULAR HGB CONC 30.4 g/dL (32.0-36.0); MEAN CORPUSCULAR VOLUME 100 fl (80-97); MONOCYTES % (AUTO) 6.5 % (3-13); PLATELET COUNT 298 10^3/uL (150-450); RED BLOOD COUNT 3.57 10^6/uL (3.72-5.28); RED CELL DISTRIBUTION WIDTH 16.4 % (11.5-14.0); SEGMENTED NEUTROPHILS % (AUTO) 59.1 % (42-78); TOTAL CELLS COUNTED % (AUTO) 100 %; WHITE BLOOD COUNT 14.7 10^3/uL (4.0-10.5)
[2019-06-25 00:57] LABS: ALBUMIN 3.9 g/dL (3.5-5.0); ALKALINE PHOSPHATASE 136 U/L (38-126); ANION GAP 17 (5-19); ASPARTATE AMINO TRANSFERASE 18 U/L (14-36); BILIRUBIN,DIRECT 0.3 mg/dL (0.0-0.4); BILIRUBIN,TOTAL 0.5 mg/dL (0.2-1.3); BLOOD UREA NITROGEN 59 mg/dL (7-20); CALCIUM 9.5 mg/dL (8.4-10.2); CARBON DIOXIDE 19 mmol/L (22-30); CHLORIDE 107 mmol/L (98-107); GLUCOSE 230 mg/dL (75-110); POTASSIUM 5.1 mmol/L (3.6-5.0); TOTAL PROTEIN 7.3 g/dL (6.3-8.2)
[2019-06-25 01:43] LABS: ARTERIAL BLOOD BASE EXCESS -9.7 mmol/L; ARTERIAL BLOOD H2CO3 1.94 mmol/L (1.05-1.35); ARTERIAL BLOOD HCO3 20.1 mmol/L (20-24); ARTERIAL BLOOD O2 SATURATION 82.1 % (94-98); ARTERIAL BLOOD PCO2 64.5 mmHg (35-45); ARTERIAL BLOOD PO2 61.5 mmHg (80-100); ARTERIAL BLOOD TOTAL CO2 22.1 mmol/L (21-25)
[2019-06-25] MEDS ORDERED: NITROGLYCERIN/D5W 50 MG/250 ML RTUINJ IV PRN (01:43)
[2019-06-25 01:44] LABS: ARTERIAL BLOOD FIO2 40%
[2019-06-25 01:45] LABS: ARTERIAL BLOOD PH 7.11 (7.35-7.45)
--- NOTE | 2019-06-25 02:13 | RADIOLOGY REPORT (SQ) ---
CLINICAL HISTORY: chest pain COMPARISON: March 15, 2019. TECHNIQUE: XR CHEST 1 VIEW 06/25/2019 12:24 AM VISCOSITY INSPECTOR FINDINGS: The heart is enlarged. There is a vague mid left lung and mid and lower right lung airspace disease. There are surgical clips in the left axilla. There is no pleural effusion. There is no pneumothorax. There are no acute osseous findings. IMPRESSION: Slightly worsening aeration of the lungs.
[2019-06-25] MEDS ORDERED: CEFEPIME 2 GM/D5W RTU 2 GM/50 ML RTUPB IV ONE (02:20)
--- NOTE | 2019-06-25 03:44 | ER Document Report ---
ED General - General Chief Complaint: Respiratory Distress Stated Complaint: RESPIRATORY DISTRESS Time Seen by Provider: 06/25/19 00:24 Primary Care Provider: MAURICE SINGH MD [Primary Care Provider] - Follow up as needed TRAVEL OUTSIDE OF THE [place] IN LAST 30 DAYS: No - HPI Notes: Patient is a 59-year-old female, end-stage renal disease, on dialysis Friday, who presents to the emergency department for evaluation of shortness of breath. She was last dialyzed on Friday. She states that around 06-07 she became short of breath. It got progressively worse. EMS found her to be mildly hypoxic at 86% on room air. In route she became acutely more short of breath and diaphoretic, she presents to the ED for further evaluation. Initially patient can offer me no more history than that. - Related Data Allergies/Adverse Reactions: Penicillins Allergy (Unknown, Verified 03/01/19 07:20) Past Medical History - General Information source: Patient - Social History Smoking Status: Unknown if Ever Smoked Family History: Reviewed & Not Pertinent, Hypertension Patient has suicidal ideation: No Patient has homicidal ideation: No - Past Medical History Cardiac Medical History: Reports: Hx Hypercholesterolemia, Hx Hypertension, Hx Peripheral Vascular Disease Denies: Hx Coronary Artery Disease, Hx Heart Attack Pulmonary Medical History: Denies: Hx Asthma, Hx Bronchitis, Hx COPD, Hx Pneumonia Neurological Medical History: Reports: Hx Cerebrovascular Accident - 2005. Denies: Hx Seizures Renal/ Medical History: Reports: Hx End Stage Renal Disease, Hx Hemodialysis. Denies: Hx Peritoneal Dialysis GI Medical History: Reports: Hx Diverticulitis Musculoskeletal Medical History: Reports Hx Arthritis, Reports Hx Gout Psychiatric Medical History: Reports: Hx Depression Past Surgical History: Reports: Hx Urinary Tract Surgery - Kidney transplant, Hx Vascular Surgery - HD fistula, Other - Angioplasty of right common iliac artery and right external iliac artery. Denies: Hx Pacemaker - Immunizations Hx Diphtheria, Pertussis, Tetanus Vaccination: No Hx Pneumococcal Vaccination: 05/28/19 Review of Systems - Review of Systems Constitutional: No symptoms reported EENT: No symptoms reported Cardiovascular: No symptoms reported Respiratory: See HPI Gastrointestinal: No symptoms reported Genitourinary: No symptoms reported Musculoskeletal: No symptoms reported Skin: No symptoms reported Neurological/Psychological: No symptoms reported Physical Exam - Vital signs Vitals: Resp Pulse Ox 33 H 65 L 06/25/19 00:19 06/25/19 00:19 - Notes Notes: This is a 59-year-old female who appears older than her stated age. Initially she is in respiratory distress, with frothy white/pink sputum. She initially has some difficulty speaking to me, I suspect secondary to her respiratory distress, but her eyes are open spontaneously and she follows commands without difficulty. Head is normocephalic and atraumatic, pupils are equal round, reactive to light. Oral mucosa is moist. Heart is tachycardic with normal S1- S2. Lungs show diffuse crackles. Abdomen is soft, nontender, normal active bowel sounds. Extremities without cyanosis or clubbing. No posterior calf tenderness. Skin is cool and diaphoretic. Patient is awake and alert. Moves all 4 extremities spontaneously. Course - Re-evaluation Re-evalutation: 06/25/19 03:44 Patient presents emergency department for evaluation. She is moderately hypertensive initially, but my concern was that she was in significant fluid overload. On further questioning the patient's fianc admits that she ate a full Thanksgiving dinner. She is placed on a nitroglycerin drip and BiPAP. ABG was ordered, patient was still hypoxic at that time. She is maintained on BiPAP and her oxygenation improved. Laboratory investigations revealed a leukocytosis, mild hyperkalemia. Chest x-ray showed decreased aeration, concerning to my eye for pulmonary edema. Patient also relates that she has a cough, and given this with her leukocytosis, and immunocompromised state on Prograf, I am inclined to treat for pneumonia. She is given IV cefepime. She is significantly acidotic. Repeat ABG is ordered. I spoke with Dr. Eubanks, he states he will be able to dialyze the patient tomorrow Awaiting results, will contact medicine. 06/25/19 05:08 Repeat ABG shows a normalized pH, normal PCO2. Patient is feeling improved. She remains hypertensive, she is currently on a nitroglycerin drip at 60 mcg/min. Her current blood pressure is 165/97. Otherwise she denies any pain of any sort. Her lactic acid is elevated, and she meets sepsis criteria, but my suspicion is that the great majority of this is secondary to fluid overload and need for dialysis. I do not think it is appropriate to give this patient IV fluids despite meeting sepsis criteria. She is given antibiotics. I spoke with Dr. Mancia, on for Dr. Singh, and he will admit the patient to [facility] for further care. - Vital Signs Vital signs: Temp Pulse Resp BP Pulse Ox 13 173/76 H 100 06/25/19 04:31 06/25/19 04:31 06/25/19 04:31 - Laboratory Result Diagrams: 06/25/19 00:35 06/25/19 00:35 Laboratory results interpreted by me: 06/25/19 06/25/19 06/25/19 00:30 00:35 00:35 WBC 14.7 H RBC 3.57 L Hgb 10.9 L Hct 35.8 L MCV 100 H MCHC 30.4 L RDW 16.4 H Absolute Neuts (auto) 8.7 H Absolute Lymphs (auto) 4.9 H Carbonic Acid 1.94 H ABG pH 7.11 L* ABG pCO2 64.5 H ABG pO2 61.5 L ABG O2 Saturation 82.1 L Potassium 5.1 H Carbon Dioxide 19 L BUN 59 H Creatinine 10.66 H Est GFR ( Amer) 4 L Est GFR (MDRD) Non-Af 4 L Glucose 230 H Lactic Acid (Sepsis) Alkaline Phosphatase 136 H 06/25/19 06/25/19 00:35 03:41 WBC RBC Hgb Hct MCV MCHC RDW Absolute Neuts (auto) Absolute Lymphs (auto) Carbonic Acid ABG pH ABG pCO2 ABG pO2 102.6 H ABG O2 Saturation Potassium Carbon Dioxide BUN Creatinine Est GFR ( Amer) Est GFR (MDRD) Non-Af Glucose Lactic Acid (Sepsis) 5.7 H Alkaline Phosphatase - Diagnostic Test Radiology reviewed: Image reviewed, Reports reviewed Radiology results interpreted by me: 06/25/19 03:47 Chest X-Ray 06/25/19 00:24 IMPRESSION: Slightly worsening aeration of the lungs. - EKG Interpretation by Me Additional EKG results interpreted by me: 06/25/19 03:47 Sinus tachycardia with a rate of 130 bpm. Normal axis. Lateral ST depressions concerning for LVH with strain versus ischemia. No significant change compared to prior study of March 05, 2019 Critical Care Note - Critical Care Note Total time excluding time spent on procedures (mins): 50 Discharge - Discharge Clinical Impression: Acute pulmonary edema, End-stage renal disease on hemodialysis, Acute respiratory failure with hypoxia and hypercarbia Condition: Stable Disposition: ADMITTED INPATIENT Admitting Provider: Victor Hugo Mancia covering Unit Admitted: IMCU Referrals: MAURICE SINGH MD [Primary Care Provider] - Follow up as needed
[2019-06-25 04:46] LABS: ARTERIAL BLOOD BASE EXCESS -2.4 mmol/L; ARTERIAL BLOOD FIO2 40%; ARTERIAL BLOOD H2CO3 1.13 mmol/L (1.05-1.35); ARTERIAL BLOOD HCO3 22.2 mmol/L (20-24); ARTERIAL BLOOD O2 SATURATION 97.7 % (94-98); ARTERIAL BLOOD PCO2 37.6 mmHg (35-45); ARTERIAL BLOOD PH 7.39 (7.35-7.45); ARTERIAL BLOOD PO2 102.6 mmHg (80-100); ARTERIAL BLOOD TOTAL CO2 23.4 mmol/L (21-25)
[2019-06-25] MEDS ORDERED: ACETAMINOPHEN 325 MG TABLET PO PRN (05:16)
[2019-06-25] MEDS: IPRATROPIUM/ALBUTEROL 0.5-2.5 MG/3 ML AMPUL NEB SCH ×4 (07:48→20:35)
[2019-06-25] MEDS: HEPARIN SOD (PORCINE) 5,000 UNIT/ML 1 ML VIAL SUBCUT SCH ×3 (08:05→22:23)
[2019-06-25] MEDS ORDERED: CYCLOBENZAPRINE HCL 10 MG TABLET PO PRN (10:18)
--- NOTE | 2019-06-25 10:55 | PDOC H&P ---
History of Present Illness Admission Date/PCP: 06/25/19 05:29 MAURICE SINGH MD Patient complains of: Shortness of the breath History of Present Illness: SANGEETA STEPHENS is a 59 year old female This is a 59-year-old patients with end-stage renal disease on hemodialysis systolic heart failure with ejection fraction is 20 to 25% hypertension's and multiple other comorbidity supposed to have a dialysis done at Friday but because of the holidays was done in Friday and patient ate the Thanksgiving dinner and patient ate start of salty food and feeling short of breath and increasing more cough brought to the emergency departments with a respiratory distressed with the initial pH was low patient was put on the BiPAP Patient improved the ABG patient was very hypertensive's patient was receiving the nitroglycerin drips Patient also received the 1 dose of the cefepime due to the elevated lactic acid When I saw the patient's is alert awake oriented denied any chest pain denied any short of breath currently on a BiPAP patient seen by Dr. 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 POPE suggest to try to wean off from the nitroglycerin drips and start the oral medications Patient's already scheduled the dialysis which patient is really needed because of the pulmonary vascular congestions with low EF Patient otherwise no acute distress right now We will coordinate the dialysis discussed with the movie theater manager Past Medical History Cardiac Medical History: Reports: Hyperlipidema, Hypertension, Peripheral Vascular Disease Denies: Coronary Artery Disease, Myocardial Infarction Pulmonary Medical History: Denies: Asthma, Bronchitis, Chronic Obstructive Pulmonary Disease (COPD), Pneumonia Neurological Medical History: Denies: Seizures Renal/ Medical History: Reports: End Stage Renal Disease GI Medical History: Reports: Diverticulitis Musculoskeltal Medical History: Reports: Arthritis, Gout Psychiatric Medical History: Reports: Depression Hematology: Reports: Anemia - takes iron Past Surgical History Past Surgical History: Reports: Vascular Surgery - HD fistula, Other - Angioplasty of right common iliac artery and right external iliac artery Denies: Pacemaker Social History Smoking Status: Never Smoker Frequency of Alcohol Use: None Hx Recreational Drug Use: Yes Hx Prescription Drug Abuse: No Family History Family History: Reviewed & Not Pertinent, Hypertension Parental Family History Reviewed: Yes Children Family History Reviewed: Yes Sibling(s) Family History Reviewed.: Yes Medication/Allergy Home Medications: Amlodipine Besylate [Norvasc 10 mg Tablet] 10 mg PO DAILY 06/25/19 Calcium Acetate [Phoslo 667 mg Capsule] 1,334 mg PO MEALS 06/25/19 Carvedilol [Coreg 3.125 mg Tablet] 6.25 mg PO Q12 06/25/19 Clonidine [Catapres-Tts 1 (0.1 mg/24 Hr) Transderm Patch] 1 patch TD FERRO 06/25/19 Cyclobenzaprine HCl [Flexeril 10 mg Tablet] 10 mg PO DAILYP PRN 06/25/19 Furosemide [Lasix 80 mg Tablet] 80 mg PO DAILY 06/25/19 Loratadine [Claritin 10 mg Tablet] 10 mg PO DAILY 06/25/19 Mycophenolate Sodium [Myfortic 180 mg Tablet.dr] 720 mg PO BID 06/25/19 Nitroglycerin [Nitro-Dur 5 mg (0.2 mg/Hr) Transdermal Patch] 1 patch TD DAILY 06/25/19 Nitroglycerin [Nitrostat 0.4 mg (1/150 Gr) Tabs 25/Bottle] 0.4 mg SL Q5MP PRN 06/25/19 Prednisone [Deltasone 5 mg Tablet] 5 mg PO DAILY 06/25/19 Tacrolimus Anhydrous [Prograf 1 mg Capsule] 4 mg PO BID 06/25/19 Valsartan [Diovan 40 mg Tablet] 40 mg PO BID 06/25/19 Venlafaxine HCl [Effexor Xr] 150 mg PO DAILY 06/25/19 Allergies/Adverse Reactions: Penicillins Allergy (Unknown, Verified 03/01/19 07:20) Review of Systems Constitutional: ABSENT: chills, fever(s), headache(s), weight gain, weight loss Eyes: ABSENT: visual disturbances Ears: ABSENT: hearing changes Cardiovascular: PRESENT: chest pain, dyspnea on exertion. ABSENT: edema, orthropnea, palpitations Respiratory: PRESENT: cough, dyspnea. ABSENT: hemoptysis Gastrointestinal: ABSENT: abdominal pain, constipation, diarrhea, hematemesis, hematochezia, nausea, vomiting Genitourinary: ABSENT: dysuria, hematuria Musculoskeletal: ABSENT: joint swelling Integumentary: ABSENT: rash, wounds Neurological: ABSENT: abnormal gait, abnormal speech, confusion, dizziness, focal weakness, syncope Psychiatric: ABSENT: anxiety, depression, homidical ideation, suicidal ideation Endocrine: ABSENT: cold intolerance, heat intolerance, menstrual abnormalities, polydipsia, polyuria Hematologic/Lymphatic: ABSENT: easy bleeding, easy bruising, lymphadenopathy Physical Exam Vital Signs: Temp Pulse Resp BP Pulse Ox 98.0 F 85 18 147/76 H 92 06/25/19 07:03 06/25/19 10:00 06/25/19 08:20 06/25/19 10:00 06/25/19 08:20 Intake & Output 06/24/19 06/25/19 06/26/19 06:59 06:59 06:59 Intake Total 81 Balance 81 Weight 91.3 kg General appearance: PRESENT: no acute distress, well-developed, well-nourished Head exam: PRESENT: atraumatic, normocephalic Eye exam: PRESENT: conjunctiva pink, EOMI, PERRLA. ABSENT: scleral icterus Ear exam: PRESENT: normal external ear exam Mouth exam: PRESENT: moist, tongue midline Neck exam: PRESENT: full ROM. ABSENT: carotid bruit, JVD, lymphadenopathy, thyromegaly Respiratory exam: PRESENT: decreased breath sounds Cardiovascular exam: PRESENT: RRR. ABSENT: diastolic murmur, rubs, systolic murmur Pulses: PRESENT: normal dorsalis pedis pul, +2 pedal pulses bilateral Vascular exam: PRESENT: normal capillary refill GI/Abdominal exam: PRESENT: normal bowel sounds, soft. ABSENT: distended, gua rding, mass, organolmegaly, rebound, tenderness Rectal exam: PRESENT: deferred Extremities exam: ABSENT: pedal edema Neurological exam: PRESENT: alert, awake, oriented to person, oriented to place, oriented to time, oriented to situation, CN II-XII grossly intact. ABSENT: motor sensory deficit Psychiatric exam: PRESENT: appropriate affect, normal mood. ABSENT: homicidal ideation, suicidal ideation Skin exam: PRESENT: dry, intact, warm. ABSENT: cyanosis, rash Results Laboratory Results: 06/25/19 00:35 06/25/19 00:35 06/25/19 06/25/19 06/25/19 00:30 00:35 00:35 WBC 14.7 H RBC 3.57 L Hgb 10.9 L Hct 35.8 L MCV 100 H MCH 30.5 MCHC 30.4 L RDW 16.4 H Plt Count 298 Seg Neutrophils % 59.1 Carbonic Acid 1.94 H HCO3/H2CO3 Ratio 10:1 ABG pH 7.11 L* ABG pCO2 64.5 H ABG pO2 61.5 L ABG HCO3 20.1 ABG O2 Saturation 82.1 L ABG Base Excess -9.7 FiO2 40% Sodium 143.2 Potassium 5.1 H Chloride 107 Carbon Dioxide 19 L Anion Gap 17 BUN 59 H Creatinine 10.66 H Est GFR ( Amer) 4 L Glucose 230 H Calcium 9.5 Magnesium Total Bilirubin 0.5 AST 18 Alkaline Phosphatase 136 H Total Protein 7.3 Albumin 3.9 06/25/19 06/25/19 00:35 03:41 WBC RBC Hgb Hct MCV MCH MCHC RDW Plt Count Seg Neutrophils % Carbonic Acid 1.13 HCO3/H2CO3 Ratio 19:1 ABG pH 7.39 ABG pCO2 37.6 ABG pO2 102.6 H ABG HCO3 22.2 ABG O2 Saturation 97.7 ABG Base Excess -2.4 FiO2 40% Sodium Potassium Chloride Carbon Dioxide Anion Gap BUN Creatinine Est GFR ( Amer) Glucose Calcium Magnesium 2.2 Total Bilirubin AST Alkaline Phosphatase Total Protein Albumin 06/25/19 00:35 Troponin I 0.053 Impressions: Chest X-Ray 06/25/19 00:24 IMPRESSION: Slightly worsening aeration of the lungs. Assessment & Plan - Diagnosis (1) Acute pulmonary edema Is this a current diagnosis for this admission?: Yes Plan: Patient is in need of hemodialysis with going right now (2) Elevated lactic acid level Is this a current diagnosis for this admission?: Yes Plan: We will get the blood culture and urine cultures patient already received 1 dose of antibiotic will wait for the all cultures continue cefepime 1 g daily most likely underlying renal failure (3) Acute respiratory failure with hypoxia and hypercarbia Is this a current diagnosis for this admission?: Yes Plan: Due to most likely vascular congestions We will repeat the chest x-ray after the dialysis We will repeat the ABG after the dialysis try to wean off from the BiPAP (4) End-stage renal disease on hemodialysis Is this a current diagnosis for this admission?: Yes Plan: Consult Dr. Eubanks for the hemodialysis (5) ADPKD (autosomal dominant polycystic kidney disease) Is this a current diagnosis for this admission?: Yes (6) Acute systolic heart failure Is this a current diagnosis for this admission?: Yes Plan: Discussed with the Dr. Man on the bedside is scheduled for the dialysis today patient scheduled for the stress test on a Friday (7) Hypertensive crisis Is this a current diagnosis for this admission?: Yes Plan: Currently try to wean off from the nitroglycerin drips restart the all the other medications (8) Medical non-compliance Is this a current diagnosis for this admission?: Yes Plan: Discussed with the patient about compliance of the medications and the diet - Time Time Spent: 50 to 70 Minutes Critical Time spent with patient: 15-24 minutes Medications reviewed and adjusted accordingly: Yes Anticipated discharge: Home Within: Other - Inpatient Certification Based on my medical assessment, after consideration of the patient's comorbidities, presenting symptoms, or acuity I expect that the services needed warrant INPATIENT care.: Yes I certify that my determination is in accordance with my understanding of Medicare's requirements for reasonable and necessary INPATIENT services [42 CFR 412.3e].: Yes Medical Necessity: Failure to Improve With Outpatient Therapy, Significant Comorbidiites Make Outpatient Treatment Too Risky, Need Close Monitoring Due to Risk of Patient Decompensation 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 POPE Continues to monitor Repeat the chest x-ray after the dialysis Repeat the ABG
--- NOTE | 2019-06-25 12:18 | EKG REPORT ---
SEVERITY:- ABNORMAL ECG - SINUS TACHYCARDIA CONSIDER LEFT VENTRICULAR HYPERTROPHY CONSIDER ANTERIOR INFARCT : Confirmed by: Elaina Foramn 25-Jun-2019 12:17:06
--- NOTE | 2019-06-25 17:43 | PDOC CONSULTATION ---
Consultation Consult Date: 06/25/19 Provider Consulted: Tl FRENCH Consult reason:: ESRD for urgent dialysis. 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 Her last dialysis was Friday and she admits to indiscretions with diet. She states she did not know about proper dietary restrictions especially of sodium. Her blood pressure was extremely high and she was also begun on IV nitroglycerin. Evaluations in the ER revealed that she was in congestive heart failure and she was admitted initially to the IMCU on BiPAP and then transferred to the ICU where she is currently undergoing dialysis.Labs and medications were reviewed. Dialysis orders were reviewed with the treating dialysis nurse. Past Medical History Cardiac Medical History: Reports: Hyperlipidemia, Hypertension-primary, Peripheral Vascular Disease Denies: Coronary Artery Disease, Myocardial Infarction Pulmonary Medical History: Denies: Asthma, Bronchitis, Chronic Obstructive Pulmonary Disease (COPD), Pneumonia Neurological Medical History: Denies: Seizures Renal/ Medical History: Reports: End Stage Renal Disease, Hypomagnesemia, Hyperphosphatemia, Metabolic Acidosis, Secondary Hyperparathyroidism GI Medical History: Reports: Diverticulitis Musculoskeltal Medical History: Reports: Arthritis, Gout Psychiatric Medical History: Reports: Depression Past Surgical History Past Surgical History: Reports: Dialysis Access Surgery AVF - 02/07/2012, Nephrectomy - Left 02/09/2016; right 06/07/[address] Bush and El, Renal Stent - Renal allograft renal artery, Vascular Surgery - HD fistula, Other - Angioplasty of right common iliac artery and right external iliac artery Denies: Pacemaker Social History Smoking Status: Never Smoker Frequency of Alcohol Use: None Hx Recreational Drug Use: Yes Hx Prescription Drug Abuse: No Family History Parental Family History Reviewed: No Children Family History Reviewed: No Sibling(s) Family History Reviewed.: No Medication/Allergy Home Medications: Amlodipine Besylate [Norvasc 10 mg Tablet] 5 mg PO BID 06/25/19 Calcium Acetate [Phoslo 667 mg Capsule] 1,334 mg PO MEALS 06/25/19 Carvedilol [Coreg 3.125 mg Tablet] 6.25 mg PO Q12 06/25/19 Clonidine [Catapres-Tts 1 (0.1 mg/24 Hr) Transderm Patch] 1 patch TD FERRO@1000 06/25/19 Cyclobenzaprine HCl [Flexeril 10 mg Tablet] 10 mg PO DAILYP PRN 06/25/19 Furosemide [Lasix 80 mg Tablet] 80 mg PO DAILY 06/25/19 Loratadine [Claritin 10 mg Tablet] 10 mg PO DAILY 06/25/19 Mycophenolate Sodium [Myfortic 180 mg Tablet.dr] 540 mg PO BID 06/25/19 Nitroglycerin [Nitro-Dur 5 mg (0.2 mg/Hr) Transdermal Patch] 1 patch TD DAILY 06/25/19 Nitroglycerin [Nitrostat 0.4 mg (1/150 Gr) Tabs 25/Bottle] 0.4 mg SL Q5MP PRN 06/25/19 Prednisone [Deltasone 5 mg Tablet] 5 mg PO DAILY 06/25/19 Tacrolimus Anhydrous [Prograf 1 mg Capsule] 4 mg PO BID 06/25/19 Valsartan [Diovan 40 mg Tablet] 40 mg PO BID 06/25/19 Venlafaxine HCl [Effexor Xr] 150 mg PO DAILYP PRN 06/25/19 Allergies/Adverse Reactions: Penicillins Allergy (Unknown, Verified 03/01/19 07:20) Physical Exam Vital Signs: Temp Pulse Resp BP Pulse Ox 98.0 F 82 14 154/64 H 100 06/25/19 08:35 06/25/19 11:00 06/25/19 08:35 06/25/19 11:00 06/25/19 08:35 Intake & Output 06/24/19 06/25/19 06/26/19 06:59 06:59 06:59 Intake Total 81 157 Output Total 4600 Balance 81 4445 Weight 91.3 kg Results Laboratory Results: 06/25/19 00:35 06/25/19 00:35 06/25/19 06/25/19 06/25/19 00:30 00:35 00:35 WBC 14.7 H RBC 3.57 L Hgb 10.9 L Hct 35.8 L MCV 100 H MCH 30.5 MCHC 30.4 L RDW 16.4 H Plt Count 298 Seg Neutrophils % 59.1 Carbonic Acid 1.94 H HCO3/H2CO3 Ratio 10:1 ABG pH 7.11 L* ABG pCO2 64.5 H ABG pO2 61.5 L ABG HCO3 20.1 ABG O2 Saturation 82.1 L ABG Base Excess -9.7 FiO2 40% Sodium 143.2 Potassium 5.1 H Chloride 107 Carbon Dioxide 19 L Anion Gap 17 BUN 59 H Creatinine 10.66 H Est GFR ( Amer) 4 L Glucose 230 H Calcium 9.5 Magnesium Total Bilirubin 0.5 AST 18 Alkaline Phosphatase 136 H Total Protein 7.3 Albumin 3.9 06/25/19 06/25/19 00:35 03:41 WBC RBC Hgb Hct MCV MCH MCHC RDW Plt Count Seg Neutrophils % Carbonic Acid 1.13 HCO3/H2CO3 Ratio 19:1 ABG pH 7.39 ABG pCO2 37.6 ABG pO2 102.6 H ABG HCO3 22.2 ABG O2 Saturation 97.7 ABG Base Excess -2.4 FiO2 40% Sodium Potassium Chloride Carbon Dioxide Anion Gap BUN Creatinine Est GFR ( Amer) Glucose Calcium Magnesium 2.2 Total Bilirubin AST Alkaline Phosphatase Total Protein Albumin 06/25/19 00:35 Troponin I 0.053 Impressions: Chest X-Ray 06/25/19 00:24 IMPRESSION: Slightly worsening aeration of the lungs.
[2019-06-25] MEDS: VENLAFAXINE HCL 75 MG CAP.SR.24H PO SCH (17:46)
[2019-06-25] MEDS: CALCIUM ACETATE 667 MG CAPSULE PO SCH ×2 (17:47→17:52)
[2019-06-25] MEDS: VALSARTAN 40 MG TABLET PO SCH (17:50)
[2019-06-25] MEDS ORDERED: (PENDING PHARMACY ID) (Mycophenolate Sodium 540 MG) PO SCH (18:00)
--- NOTE | 2019-06-25 19:24 | PDOC CONSULTATION ---
Consultation-Blank Consultation: CARDIOLOGY CONSULTATION by Dr. Michelle Man on 06/25/2019 REASON FOR CONSULTATION: Patient with a heart failure. CONSULT REQUESTING PHYSICIAN: Dr. Harika Mancia HISTORY PRESENT ILLNESS: Patient is a 59-year-old Afro-[place] female with known history of end-stage renal disease on hemodialysis, hypertension, cardia myopathy with severely reduced LV ejection fraction and history of failed renal transplant states that due to the holidays the patient had an early dialysis on Friday. Subsequently the patient had dietary and salt intake and fluid indiscretion and she called me last night saying that she was severely short of breath. I advised her to have call 911 and to get her to the emergency room. The patient has been admitted. She was treated in the emergency room including IV nitroglycerin and the patient is feeling better but still does have some shortness of breath with minimal movements in bed. She does have orthopnea. She denies any chest pain or discomfort. She does have some mild leg edema. She states that there is no palpitations or syncope. There is no clear-cut anginal symptoms. The patient denies any fever chills or Reiger's. There is no pleuritic chest pain she has cough which is nonproductive any sputum. There is no wheezing. The patient states that in spite of her nitro patch that she was her blood pressure is always high. 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 Past Surgical History Past Surgical History: Reports: Dialysis Access Surgery AVF - 02/07/2012, Nephrectomy - Left 02/09/2016; right 06/07/[address] Bush and El, Renal Artery Angioplasty, Renal Stent - Renal allograft renal artery, Renal Transplant, Vascular Surgery - HD fistula, Other - Angioplasty of right common iliac artery and right external iliac artery. Current Medications Acetaminophen (Tylenol 325 Mg Tablet) 650 mg PO Q4HP PRN PRN Reason: FOR PAIN OR TEMP Stop: 07/25/19 05:15 Albuterol/Ipratropium (Duoneb 3 Ml Ampul) 3 ml NEB RTQ4 CLARICE Stop: 07/25/19 07:59 Last Admin: 06/25/19 16:49 Dose: 3 ml Documented by: Amlodipine Besylate (Norvasc 10 Mg Tablet) 10 mg PO DAILY CLARICE Stop: 07/26/19 09:59 Calcium Acetate (Phoslo 667 Mg Capsule) 1,334 mg PO MEALS CLARICE Stop: 07/25/19 11:59 Last Admin: 06/25/19 17:52 Dose: Not Given Documented by: Carvedilol (Coreg 3.125 Mg Tablet) 6.25 mg PO Q12 CLARICE Stop: 07/25/19 21:59 Clonidine HCl (Catapres-Tts 1 (0.1 Mg/24 Hr) Transderm Patch) 1 each TD FERRO@1000 [facility] Stop: 07/27/19 09:59 Cyclobenzaprine HCl (Flexeril 10 Mg Tablet) 10 mg PO DAILYP PRN PRN Reason: MUSCLE SPASMS Stop: 07/25/19 10:17 Furosemide (Lasix 80 Mg Tablet) 80 mg PO DAILY CLARICE Stop: 07/26/19 09:59 Heparin Sodium (Porcine) (Heparin Inj 5,000 Units/Ml 1 Ml Vial) 5,000 unit SUBCUT Q8 CLARICE Stop: 07/25/19 05:59 Last Admin: 06/25/19 14:30 Dose: Not Given Documented by: Nitroglycerin/Dextrose (Ntg Rtu 50 Mg/D5w 250 Ml Iv Premix Bottle) 50 mg in 250 mls @ 0 mls/hr IV CONTINUOUS PRN; Protocol PRN Reason: THIS MED IS NOT "PRN" Stop: 07/25/19 01:42 Last Titration: 06/25/19 12:29 Dose: 0 mcg/min, 0 mls/hr Documented by: Cefepime HCl (Maxipime Rtu 1 Gm/D5w 50 Ml Premix Bag) 1 gm in 50 mls @ 100 mls/hr IV Q12 CLARICE Stop: 07/02/19 21:59 Loratadine (Claritin 10 Mg Tablet) 10 mg PO DAILY CLARICE Stop: 07/26/19 09:59 Nitroglycerin (Nitro-Dur 5 Mg (0.2 Mg/Hr) Transdermal Patch) 1 each TD DAILY CLARICE Stop: 07/26/19 09:59 Patient Own Medication (Mycophenolate Sodium) 540 mg PO BID CLARICE Stop: 07/25/19 17:59 Prednisone (Deltasone 5 Mg Tablet) 5 mg PO DAILY CLARICE Stop: 07/26/19 09:59 Tacrolimus (Prograf 1 Mg Capsule) 4 mg PO BID CLARICE Stop: 07/25/19 17:59 Valsartan (Diovan 40 Mg Tablet) 40 mg PO BID CLARICE Stop: 07/25/19 17:59 Last Admin: 06/25/19 17:50 Dose: 40 mg Documented by: Venlafaxine HCl (Effexor Xr 75 Mg Cap.Sr) 150 mg PO DAILY CLARICE Stop: 07/25/19 10:59 Last Admin: 06/25/19 17:46 Dose: Not Given Documented by: Discontinued Medications Nitroglycerin/Dextrose (Ntg Rtu 50 Mg/D5w 250 Ml Iv Premix Bottle) Confirm Administered Dose 50 mg in 250 mls @ ud IV .STK-MED ONE Stop: 06/25/19 00:21 Last Admin: 06/25/19 01:48 Dose: Not Given Documented by: Cefepime HCl (Maxipime Rtu 2 Gm-D5w 50 Ml Premix Bag) 2 gm in 50 mls @ 100 mls/hr IV NOW ONE Stop: 06/25/19 02:49 Last Infusion: 06/25/19 03:18 Dose: Infused Documented by: Social History Information Source: Patient, [facility] Records Lives with: Friend Smoking Status: Former Smoker Frequency of Alcohol Use: None Hx Recreational Drug Use: Yes Resuscitation status: The patient is a full code. Her sister is a surrogate healthcare decision maker. Family History Family History: CAD - Brother, Chronic Kidney Disease - ADPKD on her mother, brother and sister, DM - Father, Hypertension - Mother, brother and sister, Malignancy - Prostate cancer in her father, lymphoma in her mother Medication/AllergyMedication/Allergy Home Medications: Amlodipine Besylate [Norvasc 10 mg Tablet] 10 mg PO DAILY 06/25/19 Calcium Acetate [Phoslo 667 mg Capsule] 1,334 mg PO MEALS 06/25/19 Carvedilol [Coreg 3.125 mg Tablet] 6.25 mg PO Q12 06/25/19 Clonidine [Catapres-Tts 1 (0.1 mg/24 Hr) Transderm Patch] 1 patch TD FERRO 06/25/19 Cyclobenzaprine HCl [Flexeril 10 mg Tablet] 10 mg PO DAILYP PRN 06/25/19 Furosemide [Lasix 80 mg Tablet] 80 mg PO DAILY 06/25/19 Loratadine [Claritin 10 mg Tablet] 10 mg PO DAILY 06/25/19 Mycophenolate Sodium [Myfortic 180 mg Tablet.dr] 720 mg PO BID 06/25/19 Nitroglycerin [Nitro-Dur 5 mg (0.2 mg/Hr) Transdermal Patch] 1 patch TD DAILY 06/25/19 Nitroglycerin [Nitrostat 0.4 mg (1/150 Gr) Tabs 25/Bottle] 0.4 mg SL Q5MP PRN 06/25/19 Prednisone [Deltasone 5 mg Tablet] 5 mg PO DAILY 06/25/19 Tacrolimus Anhydrous [Prograf 1 mg Capsule] 4 mg PO BID 06/25/19 Valsartan [Diovan 40 mg Tablet] 40 mg PO BID 06/25/19 Venlafaxine HCl [Effexor Xr] 150 mg PO DAILY 06/25/19 Allergies/Adverse Reactions:Penicillins Allergy (Unknown, Verified 03/01/19 07:20) PHYSICAL EXAMINATION: The patient is moderately obese. She is mildly short of breath but but in no major distress. Selected Entries 06/25/19 06/25/19 06/25/19 07:03 11:00 12:41 Pulse Rate 87 82 Respiratory 22 H 18 Rate Blood Pressure 151/67 H 154/64 H Blood Pressure 95 Mean BP Location Right Arm BP Position Supine O2 Sat by Pulse 94 100 Oximetry Oxygen Flow 2.00 Rate Oxygen Delivery Nasal Cannula Method 03/18/19 05:01 WBC 8.5 RBC 2.74 L Hgb 8.7 L Hct 27.2 L HEAD: Is atraumatic normocephalic. EYES: Pupils are equal round regular reactive to light and accommodation. Extraocular movements are normal. There is no conjunctival pallor. There is no scleral icterus. EARS: Tympanic membranes are intact. External auditory canals are clear. NOSE: There is no deviated nasal septum. There is no inflammation nasal mucous membrane. MOUTH: Mucous membranes of the mouth are moist there is no bleeding from the gums. THROAT: There is no redness of the oropharynx. There is no exudates. SKIN: There is no skin rashes. There is no skin lesions. There is no petechia or ecchymosis. NECK: Is supple. There is no JVD. Carotids equal there is no bruit. There is no lymphadenopathy. There is no goiter. NO accessory muscle respiration use. Trachea central. LUNGS: Is clear to auscultation percussion. There is no rhonchi rales or wheezing. HEART: S1-S2 is heard. There is no S3 gallop. There is no S4 gallop. There is systolic murmur of mitral regurgitation and tricuspid regurgitation present. There is murmur of aortic sclerosis present.. THERE IS NO RUBS. Abdomen: Soft. There is no hepatospleno megaly. Bowel sounds are well heard. EXTREMITIES: Femorals are diminished. There is faint bilateral femoral bruits. Leg pulses are diminished. There is mild to trace pedal edema. There is no cyanosis or clubbing. There is no DVT or cellulitis. VEGETABLE SPECKER: The patient is conscious awake alert oriented x3. There is mild left-sided rate is residual weakness which is minimal. PSYCHIATRIC: The patient judgment insight are intact her affect is normal. Labs- Entire Visit 06/25/19 06/25/19 06/25/19 00:30 00:35 00:35 WBC 14.7 H RBC 3.57 L Hgb 10.9 L Hct 35.8 L MCV 100 H MCH 30.5 MCHC 30.4 L RDW 16.4 H Plt Count 298 Lymph % (Auto) 33.1 [place] % (Auto) 6.5 Eos % (Auto) 0.8 Baso % (Auto) 0.5 Absolute Neuts (auto) 8.7 H Absolute Lymphs (auto) 4.9 H Absolute Monos (auto) 1.0 Absolute Eos (auto) 0.1 Absolute Basos (auto) 0.1 Seg Neutrophils % 59.1 Carbonic Acid 1.94 H HCO3/H2CO3 Ratio 10:1 ABG pH 7.11 L* ABG pCO2 64.5 H ABG pO2 61.5 L ABG HCO3 20.1 ABG Total CO2 22.1 ABG O2 Saturation 82.1 L ABG Base Excess -9.7 FiO2 40% Sodium 143.2 Potassium 5.1 H Chloride 107 Carbon Dioxide 19 L Anion Gap 17 BUN 59 H Creatinine 10.66 H Est GFR ( Amer) 4 L Est GFR (MDRD) Non-Af 4 L Glucose 230 H Lactic Acid (Sepsis) Calcium 9.5 Magnesium Total Bilirubin 0.5 Direct Bilirubin 0.3 Neonat Total Bilirubin Not Reportable Neonat Direct Bilirubin Not Reportable Neonat Indirect Bili Not Reportable AST 18 ALT 12 Alkaline Phosphatase 136 H Troponin I Total Protein 7.3 Albumin 3.9 06/25/19 06/25/19 06/25/19 00:35 00:35 00:35 WBC RBC Hgb Hct MCV MCH MCHC RDW Plt Count Lymph % (Auto) [place] % (Auto) Eos % (Auto) Baso % (Auto) Absolute Neuts (auto) Absolute Lymphs (auto) Absolute Monos (auto) Absolute Eos (auto) Absolute Basos (auto) Seg Neutrophils % Carbonic Acid HCO3/H2CO3 Ratio ABG pH ABG pCO2 ABG pO2 ABG HCO3 ABG Total CO2 ABG O2 Saturation ABG Base Excess FiO2 Sodium Potassium Chloride Carbon Dioxide Anion Gap BUN Creatinine Est GFR ( Amer) Est GFR (MDRD) Non-Af Glucose Lactic Acid (Sepsis) 5.7 H Calcium Magnesium 2.2 Total Bilirubin Direct Bilirubin Neonat Total Bilirubin Neonat Direct Bilirubin Neonat Indirect Bili AST ALT Alkaline Phosphatase Troponin I 0.053 Total Protein Albumin 06/25/19 03:41 WBC RBC Hgb Hct MCV MCH MCHC RDW Plt Count Lymph % (Auto) [place] % (Auto) Eos % (Auto) Baso % (Auto) Absolute Neuts (auto) Absolute Lymphs (auto) Absolute Monos (auto) Absolute Eos (auto) Absolute Basos (auto) Seg Neutrophils % Carbonic Acid 1.13 HCO3/H2CO3 Ratio 19:1 ABG pH 7.39 ABG pCO2 37.6 ABG pO2 102.6 H ABG HCO3 22.2 ABG Total CO2 23.4 ABG O2 Saturation 97.7 ABG Base Excess -2.4 FiO2 40% Sodium Potassium Chloride Carbon Dioxide Anion Gap BUN Creatinine Est GFR ( Amer) Est GFR (MDRD) Non-Af Glucose Lactic Acid (Sepsis) Calcium Magnesium Total Bilirubin Direct Bilirubin Neonat Total Bilirubin Neonat Direct Bilirubin Neonat Indirect Bili AST ALT Alkaline Phosphatase Troponin I Total Protein Albumin Chest X-Ray 06/25/19 00:24 IMPRESSION: Slightly worsening aeration of the lungs. IMPRESSIONS/RECOMMENDATION: 1. Acute on chronic left ventricular systolic heart failure. This is secondary to dietary salt and fluid indiscretion. Expect patient should improve after dialysis. She is for dialysis later today. Continue current beta-blockers and ARB and dialysis. Increase ARB and beta-blockers as per blood pressure and the patient's tolerance. 2. Cardiomyopathy with severely reduced LV ejection fraction. Later once the patient stabilizes and is free of congestive heart failure then would recommend that the patient have IV Lexiscan Cardiolite stress test to make sure that there is no coronary artery disease causing the patient's cardiomyopathy. His Lexiscan Cardiolite can be done as an outpatient. Also the patient would need a repeat echocardiogram in 3 months and if the ejection fraction is 35% or below then she would be referred for AICD placement. Note the patient has an outpatient Lexiscan Cardiolite stress stress test scheduled in my office on Friday, June 28. She also will be having a repeat echo soon. 3. Cannot exclude pneumonia: Continue antibiotics 4. End-stage renal disease on hemodialysis. Continue the same. 5. Hypertension: Blood pressures well controlled 6. Peripheral vascular disease: At present the patient is asymptomatic, but the patient has not done a lot of walking. 7. Prior history of CVA. No recurrence. The patient has not been very minimal mild residual defect from a prior CVA. 8. 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 Medications reviewed. Management plan discussed with the attending physician Dr. Mancia. Medical decision making is of high complexity. 60 minutes spent on this patient more than 50% of time spent in direct patient care. Will follow.
[2019-06-25] MEDS: CARVEDILOL 3.125 MG TABLET PO SCH (22:19)
[2019-06-25] MEDS: CEFEPIME 1 GM/D5W RTU 1 GM/50 ML RTUPB IV SCH (22:20)
[2019-06-25 23:22] LABS: ANION GAP 10 (5-19); CALCIUM 8.7 mg/dL (8.4-10.2); CARBON DIOXIDE 28 mmol/L (22-30); CHLORIDE 100 mmol/L (98-107); GLUCOSE 101 mg/dL (75-110)
[2019-06-25 23:34] LABS: BLOOD UREA NITROGEN 39 mg/dL (7-20)
[2019-06-26] MEDS: IPRATROPIUM/ALBUTEROL 0.5-2.5 MG/3 ML AMPUL NEB SCH ×6 (00:08→19:40)
[2019-06-26] MEDS: HEPARIN SOD (PORCINE) 5,000 UNIT/ML 1 ML VIAL SUBCUT SCH ×3 (05:57→21:58)
[2019-06-26] MEDS: CALCIUM ACETATE 667 MG CAPSULE PO SCH ×3 (08:03→16:52)
[2019-06-26 08:27] LABS: MEAN CORPUSCULAR HEMOGLOBIN 31.2 pg (27.0-33.4); MEAN CORPUSCULAR HGB CONC 33.4 g/dL (32.0-36.0); PLATELET COUNT 198 10^3/uL (150-450); RED BLOOD COUNT 2.89 10^6/uL (3.72-5.28); RED CELL DISTRIBUTION WIDTH 15.3 % (11.5-14.0); WHITE BLOOD COUNT 5.8 10^3/uL (4.0-10.5)
[2019-06-26 09:21] LABS: MEAN CORPUSCULAR VOLUME 93 fl (80-97)
[2019-06-26] MEDS: CEFEPIME 1 GM/D5W RTU 1 GM/50 ML RTUPB IV SCH ×2 (10:25→21:57)
[2019-06-26] MEDS: VALSARTAN 40 MG TABLET PO SCH ×2 (10:26→17:57)
[2019-06-26] MEDS: NITROGLYCERIN 5 MG (0.2 MG/HR) PATCH.TD24 TD SCH (10:26)
--- NOTE | 2019-06-26 10:26 | PDOC PROGRESS REPORT ---
Subjective Progress Note for:: 06/26/19 Subjective:: Patient is currently doing much better Patient dialyzed yesterday Patient's denied any chest pain no short of breath Patient still nasal cannula oxygen's We will repeat the chest x-ray and ABG today Try to ambulate the patient's today Denied any chest pain Patient is also follow with the Dr. Man scheduled for the stress test Friday Reason For Visit: SHORTNESS OF BREATH Physical Exam Vital Signs: Temp Pulse Resp BP Pulse Ox 97.8 F 87 16 133/42 H 100 06/26/19 08:41 06/26/19 08:41 06/26/19 08:41 06/26/19 08:41 06/26/19 08:41 Intake & Output 06/25/19 06/26/19 06/27/19 06:59 06:59 06:59 Intake Total 81 447 Output Total 4600 Balance 81 -4153 Weight 91.3 kg 91 kg General appearance: PRESENT: no acute distress, well-developed, well-nourished Head exam: PRESENT: atraumatic, normocephalic Eye exam: PRESENT: conjunctiva pink, EOMI, PERRLA. ABSENT: scleral icterus Ear exam: PRESENT: normal external ear exam Mouth exam: PRESENT: moist, tongue midline Neck exam: PRESENT: full ROM. ABSENT: carotid bruit, JVD, lymphadenopathy, thyromegaly Respiratory exam: PRESENT: clear to auscultation staci Cardiovascular exam: PRESENT: RRR. ABSENT: diastolic murmur, rubs, systolic murmur Pulses: PRESENT: normal dorsalis pedis pul, +2 pedal pulses bilateral Vascular exam: PRESENT: normal capillary refill GI/Abdominal exam: PRESENT: normal bowel sounds, soft. ABSENT: distended, guarding, mass, organolmegaly, rebound, tenderness Rectal exam: PRESENT: deferred Extremities exam: ABSENT: pedal edema Neurological exam: PRESENT: alert, awake, oriented to person, oriented to place, oriented to time, oriented to situation, CN II-XII grossly intact. ABSENT: motor sensory deficit Psychiatric exam: PRESENT: appropriate affect, normal mood. ABSENT: homicidal ideation, suicidal ideation Skin exam: PRESENT: dry, intact, warm. ABSENT: cyanosis, rash Results Laboratory Results: 06/26/19 08:09 06/25/19 22:53 06/25/19 06/26/19 06/26/19 22:53 06:07 08:09 WBC Cancelled 5.8 RBC Cancelled 2.89 L Hgb Cancelled 9.0 L Hct Cancelled 27.0 L MCV Cancelled 93 D MCH Cancelled 31.2 MCHC Cancelled 33.4 RDW Cancelled 15.3 H Plt Count Cancelled 198 Sodium 137.5 Potassium 4.0 D Chloride 100 Carbon Dioxide 28 Anion Gap 10 BUN 39 H D Creatinine 6.89 H Est GFR ( Amer) 7 L Glucose 101 Calcium 8.7 06/25/19 00:35 Troponin I 0.053 Impressions: Chest X-Ray 06/25/19 00:24 IMPRESSION: Slightly worsening aeration of the lungs. Assessment & Plan - Diagnosis (1) Acute pulmonary edema Is this a current diagnosis for this admission?: Yes Plan: Status post dialysis currently all resolved (2) Elevated lactic acid level Is this a current diagnosis for this admission?: Yes Plan: Repeat the lactic acids currently afebrile (3) Acute respiratory failure with hypoxia and hypercarbia Is this a current diagnosis for this admission?: Yes Plan: This post dialysis most likely from vascular congestion's currently all resolved (4) End-stage renal disease on hemodialysis Is this a current diagnosis for this admission?: Yes Plan: Currently on hemodialysis (5) ADPKD (autosomal dominant polycystic kidney disease) Is this a current diagnosis for this admission?: Yes (6) Acute systolic heart failure Is this a current diagnosis for this admission?: Yes Plan: We will follow with the Dr. Man (7) Hypertensive crisis Is this a current diagnosis for this admission?: Yes Plan: All resolved (8) Medical non-compliance Is this a current diagnosis for this admission?: Yes - Time Time Spent with patient: 15-24 minutes Level of Care: IMCU Medications reviewed and adjusted accordingly: Yes Anticipated discharge: Home Within: Other - Plan Summary Plan Summary: Continues to current medications
[2019-06-26] MEDS: LORATADINE 10 MG TABLET PO SCH (10:28)
[2019-06-26] MEDS: CARVEDILOL 3.125 MG TABLET PO SCH ×2 (10:28→21:56)
[2019-06-26] MEDS: PREDNISONE 5 MG TABLET PO SCH (10:28)
[2019-06-26] MEDS: AMLODIPINE BESYLATE 10 MG TABLET PO SCH (10:28)
[2019-06-26] MEDS: FUROSEMIDE 80 MG TABLET PO SCH (10:28)
[2019-06-26] MEDS: VENLAFAXINE HCL 75 MG CAP.SR.24H PO SCH (10:28)
[2019-06-26] MEDS: TACROLIMUS ANHYDROUS 1 MG CAPSULE PO SCH ×3 (11:22→17:55)
[2019-06-26 12:22] LABS: ARTERIAL BLOOD BASE EXCESS 4.5 mmol/L; ARTERIAL BLOOD H2CO3 1.22 mmol/L (1.05-1.35); ARTERIAL BLOOD HCO3 28.5 mmol/L (20-24); ARTERIAL BLOOD O2 SATURATION 98.5 % (94-98); ARTERIAL BLOOD PCO2 40.5 mmHg (35-45); ARTERIAL BLOOD PH 7.47 (7.35-7.45); ARTERIAL BLOOD PO2 118.9 mmHg (80-100); ARTERIAL BLOOD TOTAL CO2 29.8 mmol/L (21-25)
[2019-06-26 12:25] LABS: ARTERIAL BLOOD FIO2 28%
--- NOTE | 2019-06-26 12:33 | RADIOLOGY REPORT (SQ) ---
EXAM DESCRIPTION: CHEST SINGLE VIEW COMPLETED DATE/TIME: 06/26/2019 11:14 am REASON FOR STUDY: recheck for pneumonia COMPARISON: 06/25/2019. NUMBER OF VIEWS: One view. TECHNIQUE: Single frontal radiographic view of the chest acquired. LIMITATIONS: None. FINDINGS: LUNGS AND PLEURA: Improved aeration of both lungs. No pleural effusion. No pneumothorax. MEDIASTINUM AND HILAR STRUCTURES: No masses. Contour normal. HEART AND VASCULAR STRUCTURES: Heart enlarged without failure. Normal vasculature. BONES: No acute findings. HARDWARE: None in the chest. Clips in the soft tissues of the left upper extremity. OTHER: No other significant finding. IMPRESSION: IMPROVED AERATION. STABLE CARDIOMEGALY. TECHNICAL DOCUMENTATION: JOB ID: [id number] [employer]- All Rights Reserved Reading location - IP/workstation name: [email or web address]
--- NOTE | 2019-06-26 22:02 | Progress Note ---
Provider Note Provider Note: CARDIOLOGY PROGRESS NOTE by Dr. Michelle Man on 06/26/2019. SUBJECTIVE:. The patient denies any chest pain or discomfort. There is no shortness of breath. There is no PND orthopnea. There is no atrial ventricular arrhythmias seen. There is no leg edema. There is no TIA CVA symptoms seen. There is no dizziness or near syncope or syncope. PHYSICAL EXAMINATION: The patient appears to be moderately obese in no acute distress Selected Entries 06/26/19 11:45 Temperature 97.8 F Temperature Oral Source Pulse Rate 71 Respiratory 16 Rate Blood Pressure 124/46 L Blood Pressure 72 Mean BP Location Right Arm BP Position Supine O2 Sat by Pulse 100 Oximetry Oxygen Flow 2.00 Rate Oxygen Delivery Nasal Cannula Method HEAD: Is atraumatic normocephalic. EYES: Pupils are equal round regular reactive to light and accommodation. Extraocular movements are normal. There is no conjunctival pallor. There is no scleral icterus. EARS: Tympanic membranes are intact. External auditory canals are clear. NOSE: There is no deviated nasal septum. There is no inflammation nasal mucous membrane. MOUTH: Mucous membranes of the mouth are moist there is no bleeding from the gums. THROAT: There is no redness of the oropharynx. There is no exudates. SKIN: There is no skin rashes. There is no skin lesions. There is no petechia or ecchymosis. NECK: Is supple. There is no JVD. Carotids equal there is no bruit. There is no lymphadenopathy. There is no goiter. NO accessory muscle respiration use. Trachea central. LUNGS: Is clear to auscultation percussion. There is no rhonchi rales or wheezing. HEART: S1-S2 is heard. There is no S3 gallop. There is no S4 gallop. There is systolic murmur of mitral regurgitation and tricuspid regurgitation present. There is murmur of aortic sclerosis present.. THERE IS NO RUBS. Abdomen: Soft. There is no hepatospleno megaly. Bowel sounds are well heard. EXTREMITIES: Femorals are diminished. There is faint bilateral femoral bruits. Leg pulses are diminished. There is mild to trace pedal edema. There is no cyanosis or clubbing. There is no DVT or cellulitis. SKEIN BLEACHER: The patient is conscious awake alert oriented x3. There is mild left-sided rate is residual weakness which is minimal. PSYCHIATRIC: The patient judgment insight are intact her affect is normal. Labs- All tests 24 hr 06/25/19 06/26/19 06/26/19 22:53 06:07 08:09 WBC Cancelled 5.8 RBC Cancelled 2.89 L Hgb Cancelled 9.0 L Hct Cancelled 27.0 L MCV Cancelled 93 D MCH Cancelled 31.2 MCHC Cancelled 33.4 RDW Cancelled 15.3 H Plt Count Cancelled 198 Platelet Estimate Cancelled Carbonic Acid HCO3/H2CO3 Ratio ABG pH ABG pCO2 ABG pO2 ABG HCO3 ABG Total CO2 ABG O2 Saturation ABG Base Excess FiO2 Sodium 137.5 Potassium 4.0 D Chloride 100 Carbon Dioxide 28 Anion Gap 10 BUN 39 H D Creatinine 6.89 H Est GFR ( Amer) 7 L Est GFR (MDRD) Non-Af 6 L Glucose 101 Calcium 8.7 Slides for Path Review Cancelled 06/26/19 06/26/19 10:20 12:03 WBC RBC Hgb Hct MCV MCH MCHC RDW Plt Count Platelet Estimate Carbonic Acid Cancelled 1.22 HCO3/H2CO3 Ratio Cancelled 23:1 ABG pH Cancelled 7.47 H ABG pCO2 Cancelled 40.5 ABG pO2 Cancelled 118.9 H ABG HCO3 Cancelled 28.5 H ABG Total CO2 Cancelled 29.8 H ABG O2 Saturation Cancelled 98.5 H ABG Base Excess Cancelled 4.5 FiO2 Cancelled 28% Sodium Potassium Chloride Carbon Dioxide Anion Gap BUN Creatinine Est GFR ( Amer) Est GFR (MDRD) Non-Af Glucose Calcium Slides for Path Review Chest X-Ray 06/25/19 00:24 IMPRESSION: Slightly worsening aeration of the lungs. Chest X-Ray 06/26/19 00:00 IMPRESSION: IMPROVED AERATION. STABLE CARDIOMEGALY. IMPRESSIONS/RECOMMENDATION: 1. Acute on chronic left ventricular systolic heart failure. He is much improved after dialysis. She is for dialysis later today. Continue current beta-blockers and ARB and dialysis. Increase ARB and beta-blockers as per blood pressure and the patient's tolerance. 2. Cardiomyopathy with severely reduced LV ejection fraction. Later once the patient stabilizes and is free of congestive heart failure then would recommend that the patient have IV Lexiscan Cardiolite stress test to make sure that there is no coronary artery disease causing the patient's cardiomyopathy. His Lexiscan Cardiolite can be done as an outpatient. Also the patient would need a repeat echocardiogram in 3 months and if the ejection fraction is 35% or below then she would be referred for AICD placement. Note the patient has an outpatient Lexiscan Cardiolite stress stress test scheduled in my office on June 28. She also will be having a repeat echo soon. 3. Cannot exclude pneumonia: Continue antibiotics 4. End-stage renal disease on hemodialysis. Continue the same. 5. Hypertension: Blood pressures well controlled 6. Peripheral vascular disease: At present the patient is asymptomatic, but the patient has not done a lot of walking. 7. Prior history of CVA. No recurrence. The patient has not been very minimal mild residual defect from a prior CVA. 8. 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 Evaluation medications reviewed. Medication regimen and management plan discussed with attending physician. Cardiac status is stable. Can discharge the patient tomorrow. Will sign off the case. Will follow the patient in the office. Discussed this with attending physician Dr. Mancia.
[2019-06-27] MEDS: IPRATROPIUM/ALBUTEROL 0.5-2.5 MG/3 ML AMPUL NEB SCH ×6 (00:10→20:04)
[2019-06-27 05:16] LABS: HEMOGLOBIN 9.3 g/dL (12.0-15.5); MEAN CORPUSCULAR HEMOGLOBIN 31.2 pg (27.0-33.4); MEAN CORPUSCULAR HGB CONC 33.2 g/dL (32.0-36.0); MEAN CORPUSCULAR VOLUME 94 fl (80-97); PLATELET COUNT 206 10^3/uL (150-450); RED BLOOD COUNT 2.98 10^6/uL (3.72-5.28); RED CELL DISTRIBUTION WIDTH 15.1 % (11.5-14.0); WHITE BLOOD COUNT 7.5 10^3/uL (4.0-10.5)
[2019-06-27 05:40] LABS: ANION GAP 13 (5-19); BLOOD UREA NITROGEN 61 mg/dL (7-20); CALCIUM 8.7 mg/dL (8.4-10.2); CARBON DIOXIDE 25 mmol/L (22-30); CHLORIDE 97 mmol/L (98-107); GLUCOSE 96 mg/dL (75-110); POTASSIUM 4.6 mmol/L (3.6-5.0)
[2019-06-27] MEDS: HEPARIN SOD (PORCINE) 5,000 UNIT/ML 1 ML VIAL SUBCUT SCH ×3 (05:43→21:53)
[2019-06-27] MEDS: CALCIUM ACETATE 667 MG CAPSULE PO SCH ×4 (08:05→16:10)
[2019-06-27] MEDS: CARVEDILOL 3.125 MG TABLET PO SCH ×2 (09:59→21:52)
[2019-06-27] MEDS: AMLODIPINE BESYLATE 10 MG TABLET PO SCH (09:59)
[2019-06-27] MEDS: VENLAFAXINE HCL 75 MG CAP.SR.24H PO SCH (09:59)
[2019-06-27] MEDS: FUROSEMIDE 80 MG TABLET PO SCH (09:59)
[2019-06-27] MEDS: PREDNISONE 5 MG TABLET PO SCH (10:00)
[2019-06-27] MEDS ORDERED: CLONIDINE 0.1 MG/24 HR PATCH.TDWK TD SCH (10:00)
[2019-06-27] MEDS: LORATADINE 10 MG TABLET PO SCH (10:00)
[2019-06-27] MEDS: NITROGLYCERIN 5 MG (0.2 MG/HR) PATCH.TD24 TD SCH (10:00)
[2019-06-27] MEDS: CEFEPIME 1 GM/D5W RTU 1 GM/50 ML RTUPB IV SCH ×2 (10:03→21:52)
[2019-06-27] MEDS: VALSARTAN 40 MG TABLET PO SCH ×2 (10:04→18:22)
[2019-06-27] MEDS: TACROLIMUS ANHYDROUS 1 MG CAPSULE PO SCH ×2 (10:05→18:23)
[2019-06-27] MEDS: MAG HYDROX/AL HYDROX/SIMETH SUSP 30 ML UDCUP PO PRN ×2 (10:36→16:40)
--- NOTE | 2019-06-27 10:48 | PDOC PROGRESS REPORT ---
Subjective Progress Note for:: 06/27/19 Subjective:: Patient is complaining some stomach upsets and nausea Patient otherwise no chest pain no short of breath Patients does not feel good but not sure with that she can go home or not Patient scheduled for the stress test by Dr. POPE tomorrow Reason For Visit: SHORTNESS OF BREATH Physical Exam Vital Signs: Temp Pulse Resp BP Pulse Ox 97.9 F 77 18 138/57 H 98 06/27/19 08:29 06/27/19 08:36 06/27/19 08:36 06/27/19 08:29 06/27/19 08:36 Intake & Output 06/26/19 06/27/19 06/28/19 06:59 06:59 06:59 Intake Total 447 420 50 Output Total 4600 Balance -4153 420 50 Weight 91 kg 83.8 kg General appearance: PRESENT: no acute distress, well-developed, well-nourished Head exam: PRESENT: atraumatic, normocephalic Eye exam: PRESENT: conjunctiva pink, EOMI, PERRLA. ABSENT: scleral icterus Ear exam: PRESENT: normal external ear exam Mouth exam: PRESENT: moist, tongue midline Neck exam: PRESENT: full ROM. ABSENT: carotid bruit, JVD, lymphadenopathy, thyromegaly Respiratory exam: PRESENT: clear to auscultation staci Cardiovascular exam: PRESENT: RRR. ABSENT: diastolic murmur, rubs, systolic murmur Pulses: PRESENT: normal dorsalis pedis pul, +2 pedal pulses bilateral Vascular exam: PRESENT: normal capillary refill GI/Abdominal exam: PRESENT: normal bowel sounds, soft. ABSENT: distended, guarding, mass, organolmegaly, rebound, tenderness Rectal exam: PRESENT: deferred Musculoskeletal exam: PRESENT: ambulatory Neurological exam: PRESENT: alert, awake, oriented to person, oriented to place, oriented to time, oriented to situation, CN II-XII grossly intact. ABSENT: motor sensory deficit Psychiatric exam: PRESENT: appropriate affect, normal mood. ABSENT: homicidal ideation, suicidal ideation Skin exam: PRESENT: dry, intact, warm. ABSENT: cyanosis, rash Results Laboratory Results: 06/27/19 05:01 06/27/19 05:01 06/26/19 06/26/19 06/27/19 10:20 12:03 05:01 WBC 7.5 RBC 2.98 L Hgb 9.3 L Hct 28.0 L MCV 94 MCH 31.2 MCHC 33.2 RDW 15.1 H Plt Count 206 Carbonic Acid Cancelled 1.22 HCO3/H2CO3 Ratio Cancelled 23:1 ABG pH Cancelled 7.47 H ABG pCO2 Cancelled 40.5 ABG pO2 Cancelled 118.9 H ABG HCO3 Cancelled 28.5 H ABG O2 Saturation Cancelled 98.5 H ABG Base Excess Cancelled 4.5 FiO2 Cancelled 28% Sodium Potassium Chloride Carbon Dioxide Anion Gap BUN Creatinine Est GFR ( Amer) Glucose Calcium 06/27/19 05:01 WBC RBC Hgb Hct MCV MCH MCHC RDW Plt Count Carbonic Acid HCO3/H2CO3 Ratio ABG pH ABG pCO2 ABG pO2 ABG HCO3 ABG O2 Saturation ABG Base Excess FiO2 Sodium 134.6 L Potassium 4.6 Chloride 97 L Carbon Dioxide 25 Anion Gap 13 BUN 61 H Creatinine 9.97 H Est GFR ( Amer) 5 L Glucose 96 Calcium 8.7 06/25/19 00:35 Troponin I 0.053 Impressions: Chest X-Ray 06/26/19 00:00 IMPRESSION: IMPROVED AERATION. STABLE CARDIOMEGALY. Assessment & Plan - Diagnosis (1) Acute pulmonary edema Is this a current diagnosis for this admission?: Yes Plan: Status post dialysis currently all resolved (2) Elevated lactic acid level Is this a current diagnosis for this admission?: Yes Plan: Repeat the lactic acids currently afebrile (3) Acute respiratory failure with hypoxia and hypercarbia Is this a current diagnosis for this admission?: Yes Plan: This post dialysis most likely from vascular congestion's currently all resolved (4) End-stage renal disease on hemodialysis Is this a current diagnosis for this admission?: Yes Plan: Currently on hemodialysis (5) ADPKD (autosomal dominant polycystic kidney disease) Is this a current diagnosis for this admission?: Yes (6) Acute systolic heart failure Is this a current diagnosis for this admission?: Yes Plan: We will follow with the Dr. Man (7) Hypertensive crisis Is this a current diagnosis for this admission?: Yes Plan: All resolved (8) Medical non-compliance Is this a current diagnosis for this admission?: Yes Plan: Discussed with the patient about compliance of the medications and the diet - Time Time Spent with patient: 15-24 minutes Level of Care: IMCU Medications reviewed and adjusted accordingly: Yes Anticipated discharge: Home, Home with Homehealth Within: Other - Plan Summary Plan Summary: Plan to discharge home today but patient is complaining some stomach upset is not feeling well will try the Maalox discussed with the nursing staff and the patient's to ambulatory In the hallway we will discuss with the Dr. Man May be dialyzed tomorrow and discharge after that And do the stress test in his office as per schedule
[2019-06-28] MEDS: IPRATROPIUM/ALBUTEROL 0.5-2.5 MG/3 ML AMPUL NEB SCH ×6 (00:10→21:34)
[2019-06-28] MEDS: CALCIUM ACETATE 667 MG CAPSULE PO SCH ×3 (06:12→17:18)
[2019-06-28] MEDS: HEPARIN SOD (PORCINE) 5,000 UNIT/ML 1 ML VIAL SUBCUT SCH ×3 (06:13→22:03)
[2019-06-28] MEDS: EPOETIN ALFA-EPBX 10,000 UNIT in SYRINGE, DISPOSABLE, 1 EACH IV PRN (10:42)
[2019-06-28] MEDS: AMLODIPINE BESYLATE 10 MG TABLET PO SCH (12:41)
[2019-06-28] MEDS: VENLAFAXINE HCL 75 MG CAP.SR.24H PO SCH (12:41)
[2019-06-28] MEDS: CARVEDILOL 3.125 MG TABLET PO SCH ×2 (12:41→22:03)
[2019-06-28] MEDS: LORATADINE 10 MG TABLET PO SCH (12:41)
[2019-06-28] MEDS: CEFEPIME 1 GM/D5W RTU 1 GM/50 ML RTUPB IV SCH ×2 (12:41→22:03)
[2019-06-28] MEDS: FUROSEMIDE 80 MG TABLET PO SCH (12:42)
[2019-06-28] MEDS: NITROGLYCERIN 5 MG (0.2 MG/HR) PATCH.TD24 TD SCH (12:42)
[2019-06-28] MEDS: PREDNISONE 5 MG TABLET PO SCH (12:42)
[2019-06-28] MEDS: TACROLIMUS ANHYDROUS 1 MG CAPSULE PO SCH ×2 (12:44→17:18)
[2019-06-28] MEDS: VALSARTAN 40 MG TABLET PO SCH ×2 (12:44→17:18)
--- NOTE | 2019-06-28 13:10 | PDOC PROGRESS REPORT ---
Subjective Progress Note for:: 06/28/19 Reason For Visit: Patient seen on dialysis today. Undergoing dialysis without any issues. She complains of feeling sleepy all the time. She says she is been using the CPAP since she has been in the hospital but never has been using it at home for her sleep apnea. Denies any history of headaches or focal deficits. Otherwise doing well. Labs and medications were reviewed. Dialysis orders were reviewed with the treating dialysis nurse. Physical Exam Vital Signs: Temp Pulse Resp BP Pulse Ox 98.2 F 82 16 148/62 H 96 06/28/19 12:31 06/28/19 12:31 06/28/19 12:31 06/28/19 12:31 06/28/19 12:31 Intake & Output 06/27/19 06/28/19 06/29/19 06:59 06:59 06:59 Intake Total 420 628 Balance 420 628 Weight 83.8 kg 84 kg General appearance: PRESENT: no acute distress, cooperative Respiratory exam: PRESENT: clear to auscultation staci, decreased breath sounds. ABSENT: crackles Cardiovascular exam: PRESENT: +S1, +S2 GI/Abdominal exam: PRESENT: normal bowel sounds, soft. ABSENT: organomegaly, tenderness Extremities exam: ABSENT: pedal edema Neurological exam: PRESENT: oriented to person, oriented to place Psychiatric exam: PRESENT: appropriate affect Skin exam: ABSENT: erythema, jaundice, mottled, rash Results Laboratory Results: 06/27/19 05:01 06/27/19 05:01 06/25/19 00:35 Troponin I 0.053 Impressions: Chest X-Ray 06/26/19 00:00 IMPRESSION: IMPROVED AERATION. STABLE CARDIOMEGALY. Assessment & Plan - Diagnosis (1) End-stage renal disease on hemodialysis Is this a current diagnosis for this admission?: Yes Plan: Patient currently undergoing dialysis. Vital signs are stable. Plan to remove around 2 L of fluid as tolerated. Dialysis is being supervised to ensure safe and smooth procedure. Dialysis orders were reviewed with the treating dialysis nurse. (2) ADPKD (autosomal dominant polycystic kidney disease) Is this a current diagnosis for this admission?: Yes Plan: Status post bilateral nephrectomies following which she had ESRD and on dialysis. (3) Status post -donor kidney transplantation Plan: Patient had a renal transplant in 2014 that failed around January 2019. Still on high risk medications to preserve residual function. (4) Acute systolic heart failure Is this a current diagnosis for this admission?: Yes Plan: Patient has baseline underlying severe congestive cardiomyopathy with baseline ejection fraction below 35%. She came in with acute decompensation but presently whole lot better post dialysis and ultrafiltration. Advised to follow-up with Dr. Man/cardiology. Advised proper dietary/fluid modifications. (5) Anemia in chronic kidney disease (CKD) Plan: Current hemoglobin 9.3. Adjust erythropoietin. (6) Hypertensive crisis Is this a current diagnosis for this admission?: Yes Plan: Resolved. Monitor.
--- NOTE | 2019-06-28 22:03 | PDOC PROGRESS REPORT ---
Subjective Progress Note for:: 06/28/19 Subjective:: Patient was admitted for the management of acute systolic heart failure, history of end-stage renal disease on hemodialysis. I saw her today by the bedside she said she cannot keep her eyes open, I do not particularly understand what this means but she looks stable today by the bedside Reason For Visit: SHORTNESS OF BREATH Physical Exam Vital Signs: Temp Pulse Resp BP Pulse Ox 98.4 F 81 20 136/45 H 98 06/28/19 19:47 06/28/19 19:47 06/28/19 19:47 06/28/19 19:47 06/28/19 19:47 Intake & Output 06/27/19 06/28/19 06/29/19 06:59 06:59 06:59 Intake Total 420 628 220 Output Total 1800 Balance 420 628 -1580 Weight 83.8 kg 84 kg General appearance: PRESENT: no acute distress Eye exam: PRESENT: PERRLA Respiratory exam: PRESENT: clear to auscultation staci Cardiovascular exam: PRESENT: +S1, +S2 GI/Abdominal exam: PRESENT: soft Neurological exam: PRESENT: alert Results Laboratory Results: 06/27/19 05:01 06/27/19 05:01 06/25/19 00:35 Troponin I 0.053 Impressions: Chest X-Ray 06/26/19 00:00 IMPRESSION: IMPROVED AERATION. STABLE CARDIOMEGALY. Assessment & Plan - Diagnosis (1) Acute systolic heart failure Is this a current diagnosis for this admission?: Yes Plan: Continue present treatment (2) End-stage renal disease on hemodialysis Is this a current diagnosis for this admission?: Yes Plan: per nephrology - Time Time Spent with patient: 25-34 minutes Level of Care: [facility]
[2019-06-29] MEDS: IPRATROPIUM/ALBUTEROL 0.5-2.5 MG/3 ML AMPUL NEB SCH ×6 (00:44→19:52)
[2019-06-29] MEDS: HEPARIN SOD (PORCINE) 5,000 UNIT/ML 1 ML VIAL SUBCUT SCH ×3 (06:15→22:09)
[2019-06-29 06:36] LABS: ANION GAP 8 (5-19); BLOOD UREA NITROGEN 37 mg/dL (7-20); CALCIUM 8.7 mg/dL (8.4-10.2); CARBON DIOXIDE 31 mmol/L (22-30); CHLORIDE 98 mmol/L (98-107); GLUCOSE 77 mg/dL (75-110); POTASSIUM 4.2 mmol/L (3.6-5.0)
[2019-06-29 06:50] LABS: ARTERIAL BLOOD BASE EXCESS 1.8 mmol/L; ARTERIAL BLOOD H2CO3 0.98 mmol/L (1.05-1.35); ARTERIAL BLOOD HCO3 24.8 mmol/L (20-24); ARTERIAL BLOOD O2 SATURATION 97.7 % (94-98); ARTERIAL BLOOD PCO2 32.4 mmHg (35-45); ARTERIAL BLOOD PO2 92.1 mmHg (80-100); ARTERIAL BLOOD TOTAL CO2 25.8 mmol/L (21-25)
[2019-06-29 06:51] LABS: ARTERIAL BLOOD FIO2 3L
[2019-06-29] MEDS: CALCIUM ACETATE 667 MG CAPSULE PO SCH ×3 (07:53→17:08)
[2019-06-29] MEDS: AMLODIPINE BESYLATE 10 MG TABLET PO SCH (10:04)
[2019-06-29] MEDS: CARVEDILOL 3.125 MG TABLET PO SCH ×2 (10:04→22:09)
[2019-06-29] MEDS: TACROLIMUS ANHYDROUS 1 MG CAPSULE PO SCH ×2 (10:05→17:08)
[2019-06-29] MEDS: LORATADINE 10 MG TABLET PO SCH (10:05)
[2019-06-29] MEDS: VENLAFAXINE HCL 75 MG CAP.SR.24H PO SCH (10:05)
[2019-06-29] MEDS: PREDNISONE 5 MG TABLET PO SCH (10:05)
[2019-06-29] MEDS: CEFEPIME 1 GM/D5W RTU 1 GM/50 ML RTUPB IV SCH ×2 (10:05→22:09)
[2019-06-29] MEDS: VALSARTAN 40 MG TABLET PO SCH ×2 (10:06→17:09)
[2019-06-29] MEDS: FUROSEMIDE 80 MG TABLET PO SCH (10:06)
[2019-06-29] MEDS: NITROGLYCERIN 5 MG (0.2 MG/HR) PATCH.TD24 TD SCH (10:06)
--- NOTE | 2019-06-29 19:56 | PDOC PROGRESS REPORT ---
Subjective Progress Note for:: 06/29/19 Subjective:: Patient was admitted for the management of acute systolic heart failure, history of end-stage renal disease on hemodialysis. I saw her today by the bedside she said she cannot keep her eyes open, I do not particularly understand what this means but she looks stable today by the bedside Reason For Visit: SHORTNESS OF BREATH Physical Exam Vital Signs: Temp Pulse Resp BP Pulse Ox 98.2 F 86 14 131/66 H 94 06/29/19 14:59 06/29/19 16:09 06/29/19 16:09 06/29/19 14:59 06/29/19 16:09 Intake & Output 06/28/19 06/29/19 06/30/19 06:59 06:59 06:59 Intake Total 628 320 490 Output Total 1800 Balance 628 -1480 490 Weight 84 kg 86.6 kg General appearance: PRESENT: no acute distress Eye exam: PRESENT: PERRLA Respiratory exam: PRESENT: clear to auscultation staci Cardiovascular exam: PRESENT: +S1, +S2 GI/Abdominal exam: PRESENT: soft Neurological exam: PRESENT: alert Results Laboratory Results: 06/27/19 05:01 06/29/19 05:44 06/29/19 06/29/19 05:44 06:39 Carbonic Acid 0.98 L HCO3/H2CO3 Ratio 25:1 ABG pH 7.50 H ABG pCO2 32.4 L ABG pO2 92.1 ABG HCO3 24.8 H ABG O2 Saturation 97.7 ABG Base Excess 1.8 FiO2 3L Sodium 136.5 L Potassium 4.2 Chloride 98 Carbon Dioxide 31 H Anion Gap 8 BUN 37 H Creatinine 7.79 H Est GFR ( Amer) 6 L Glucose 77 Calcium 8.7 06/25/19 00:35 Troponin I 0.053 Impressions: Chest X-Ray 06/26/19 00:00 IMPRESSION: IMPROVED AERATION. STABLE CARDIOMEGALY. Assessment & Plan - Diagnosis (1) Acute systolic heart failure Is this a current diagnosis for this admission?: Yes Plan: Continue present treatment (2) End-stage renal disease on hemodialysis Is this a current diagnosis for this admission?: Yes - Time Time Spent with patient: 15-24 minutes
[2019-06-30] MEDS: IPRATROPIUM/ALBUTEROL 0.5-2.5 MG/3 ML AMPUL NEB SCH ×6 (00:33→19:51)
[2019-06-30] MEDS: HEPARIN SOD (PORCINE) 5,000 UNIT/ML 1 ML VIAL SUBCUT SCH ×3 (06:06→21:48)
[2019-06-30] MEDS: CALCIUM ACETATE 667 MG CAPSULE PO SCH ×3 (09:52→17:24)
[2019-06-30 14:41] LABS: HEMOGLOBIN 8.7 g/dL (12.0-15.5); MEAN CORPUSCULAR HEMOGLOBIN 31.1 pg (27.0-33.4); MEAN CORPUSCULAR HGB CONC 33.4 g/dL (32.0-36.0); MEAN CORPUSCULAR VOLUME 93 fl (80-97); PLATELET COUNT 188 10^3/uL (150-450); RED BLOOD COUNT 2.79 10^6/uL (3.72-5.28); RED CELL DISTRIBUTION WIDTH 15.5 % (11.5-14.0); WHITE BLOOD COUNT 7.4 10^3/uL (4.0-10.5)
[2019-06-30 14:59] LABS: ANION GAP 12 (5-19); BLOOD UREA NITROGEN 51 mg/dL (7-20); CALCIUM 9.4 mg/dL (8.4-10.2); CARBON DIOXIDE 28 mmol/L (22-30); CHLORIDE 96 mmol/L (98-107); GLUCOSE 112 mg/dL (75-110); POTASSIUM 4.3 mmol/L (3.6-5.0)
[2019-06-30] MEDS: EPOETIN ALFA-EPBX 10,000 UNIT in SYRINGE, DISPOSABLE, 1 EACH IV PRN (15:31)
--- NOTE | 2019-06-30 15:38 | PDOC PROGRESS REPORT ---
Subjective Progress Note for:: 06/30/19 Reason For Visit: Patient seen today on dialysis. She is looking good. However she complains of being very sleepy in the daytime. She says she is up all night. She denies any history of headaches or seizures. No complaints of any chest pains. Labs and medications were reviewed. Pulses orders were reviewed with the treating dialysis nurse. Physical Exam Vital Signs: Temp Pulse Resp BP Pulse Ox 98.0 F 77 14 151/74 H 100 06/30/19 12:26 06/30/19 12:26 06/30/19 12:26 06/30/19 12:48 06/30/19 12:26 Intake & Output 06/29/19 06/30/19 07/01/19 06:59 06:59 06:59 Intake Total 320 540 Output Total 1800 Balance -1480 540 Weight 86.6 kg 84.2 kg General appearance: PRESENT: no acute distress Respiratory exam: PRESENT: clear to auscultation staci, decreased breath sounds. ABSENT: crackles Cardiovascular exam: PRESENT: +S1, +S2 GI/Abdominal exam: PRESENT: normal bowel sounds, soft. ABSENT: organomegaly, tenderness Extremities exam: ABSENT: pedal edema Neurological exam: PRESENT: alert, awake, oriented to person, oriented to place Psychiatric exam: PRESENT: appropriate affect Results Laboratory Results: 06/30/19 13:50 06/30/19 13:50 06/30/19 06/30/19 13:50 13:50 WBC 7.4 RBC 2.79 L Hgb 8.7 L Hct 26.0 L MCV 93 MCH 31.1 MCHC 33.4 RDW 15.5 H Plt Count 188 Sodium 135.7 L Potassium 4.3 Chloride 96 L Carbon Dioxide 28 Anion Gap 12 BUN 51 H Creatinine 10.93 H Est GFR ( Amer) 4 L Glucose 112 H Calcium 9.4 06/25/19 01:49 Blood Blood Culture - Final NO GROWTH IN 5 DAYS 06/25/19 00:35 Blood Blood Culture - Final NO GROWTH IN 5 DAYS 06/25/19 00:35 Troponin I 0.053 Impressions: Chest X-Ray 06/26/19 00:00 IMPRESSION: IMPROVED AERATION. STABLE CARDIOMEGALY. Assessment & Plan - Diagnosis (1) End-stage renal disease on hemodialysis Is this a current diagnosis for this admission?: Yes Plan: Patient currently undergoing dialysis. Vital signs are stable. Plan to remove around 2 L of fluid as tolerated. Dialysis is being supervised to ensure safe and smooth procedure. Dialysis orders were reviewed with the treating dialysis nurse. (2) ADPKD (autosomal dominant polycystic kidney disease) Is this a current diagnosis for this admission?: Yes Plan: Status post bilateral nephrectomies following which she had ESRD and on dialysis. (3) Status post -donor kidney transplantation Plan: Patient had a renal transplant in 2014 that failed around January 2019. Still on high risk medications to preserve residual function. (4) Acute systolic heart failure Is this a current diagnosis for this admission?: Yes Plan: Patient has baseline underlying severe congestive cardiomyopathy with baseline ejection fraction below 35%. She came in with acute decompensation but presently whole lot better post dialysis and ultrafiltration. Advised to follow-up with Dr. Man/cardiology. Advised proper dietary/fluid modifications. (5) Anemia in chronic kidney disease (CKD) Plan: Current hemoglobin 8.7/9.3. Adjust erythropoietin. (6) Hypertensive crisis Is this a current diagnosis for this admission?: Yes Plan: Resolved. Monitor.
[2019-06-30] MEDS: AMLODIPINE BESYLATE 10 MG TABLET PO SCH (17:23)
[2019-06-30] MEDS: VENLAFAXINE HCL 75 MG CAP.SR.24H PO SCH (17:23)
[2019-06-30] MEDS: LORATADINE 10 MG TABLET PO SCH (17:23)
[2019-06-30] MEDS: PREDNISONE 5 MG TABLET PO SCH (17:23)
[2019-06-30] MEDS: FUROSEMIDE 80 MG TABLET PO SCH (17:23)
[2019-06-30] MEDS: TACROLIMUS ANHYDROUS 1 MG CAPSULE PO SCH ×2 (17:24→17:27)
[2019-06-30] MEDS: VALSARTAN 40 MG TABLET PO SCH ×3 (17:26→17:55)
[2019-06-30] MEDS: CARVEDILOL 3.125 MG TABLET PO SCH ×2 (17:29→21:47)
[2019-06-30] MEDS: CEFEPIME 1 GM/D5W RTU 1 GM/50 ML RTUPB IV SCH ×2 (17:29→21:48)
--- NOTE | 2019-06-30 18:24 | PDOC DISCHARGE SUMMARY ---
Impression - Admit/DC Date/PCP Admission Date/Primary Care Provider: 06/25/19 05:29 MAURICE SINGH MD Discharge Date: 07/01/19 - Discharge Diagnosis (1) Acute systolic heart failure Is this a current diagnosis for this admission?: Yes (2) End-stage renal disease on hemodialysis Is this a current diagnosis for this admission?: Yes - Additional Information Discharge Activity: Activity As Tolerated, Balance Activity w/Rest, Weigh Daily Referrals: REJI COSTA MD [ACTIVE STAFF] - 07/05/19 1:00 pm MAURICE SINGH MD [Primary Care Provider] - 07/05/19 9:15 am Home Medications: RX: Amlodipine Besylate [Norvasc 10 mg Tablet] 5 mg PO BID 06/25/19 RX: Calcium Acetate [Phoslo 667 mg Capsule] 1,334 mg PO MEALS 06/25/19 RX: Carvedilol [Coreg 3.125 mg Tablet] 6.25 mg PO Q12 06/25/19 RX: Clonidine [Catapres-Tts 1 (0.1 mg/24 Hr) Transderm Patch] 1 patch TD FERRO@1000 06/25/19 RX: Cyclobenzaprine HCl [Flexeril 10 mg Tablet] 10 mg PO DAILYP PRN 06/25/19 RX: Furosemide [Lasix 80 mg Tablet] 80 mg PO DAILY 06/25/19 RX: Loratadine [Claritin 10 mg Tablet] 10 mg PO DAILY 06/25/19 RX: Mycophenolate Sodium [Myfortic 180 mg Tablet.dr] 540 mg PO BID 06/25/19 RX: Nitroglycerin [Nitro-Dur 5 mg (0.2 mg/Hr) Transdermal Patch] 1 patch TD DAILY 06/25/19 RX: Nitroglycerin [Nitrostat 0.4 mg (1/150 Gr) Tabs 25/Bottle] 0.4 mg SL Q5MP PRN 06/25/19 RX: Prednisone [Deltasone 5 mg Tablet] 5 mg PO DAILY 06/25/19 RX: Tacrolimus Anhydrous [Prograf 1 mg Capsule] 4 mg PO BID 06/25/19 RX: Valsartan [Diovan 40 mg Tablet] 40 mg PO BID 06/25/19 RX: Venlafaxine HCl [Effexor Xr] 150 mg PO DAILYP PRN 06/25/19 History of Present Illiness History of Present Illness: SANGEETA STEPHENS is a 59 year old female, She was admitted when she presented with acute pulmonary edema due to acute systolic heart failure Hospital Course Hospital Course: She was seen in consultation by nephrology, Dr. Eubanks, she underwent hemodialysis in the hospital,She has cardiomyopathy, end-stage renal disease on hemodialysis.she has non specific eye symptoms,she claimed that she can not close her eyes ,there are no focal weakness .MRI of the brain demonstrated chronic infarction in the right daniel, brainstem,cerebral peduncle Physical Exam Vital Signs: Temp Pulse Resp BP Pulse Ox 98.5 F 93 17 154/86 H 92 06/30/19 17:18 06/30/19 17:18 06/30/19 17:18 06/30/19 17:18 06/30/19 17:18 Intake & Output 06/29/19 06/30/19 07/01/19 06:59 06:59 06:59 Intake Total 320 540 360 Output Total 1800 0 Balance -1480 540 360 Weight 86.6 kg 84.2 kg General appearance: PRESENT: no acute distress Eye exam: PRESENT: PERRLA Respiratory exam: PRESENT: clear to auscultation staci Cardiovascular exam: PRESENT: +S1, +S2 GI/Abdominal exam: PRESENT: soft Neurological exam: PRESENT: alert Results Laboratory Results: WBC 7.4 10^3/uL (4.0-10.5) 06/30/19 13:50 RBC 2.79 10^6/uL (3.72-5.28) L 06/30/19 13:50 Hgb 8.7 g/dL (12.0-15.5) L 06/30/19 13:50 Hct 26.0 % (36.0-47.0) L 06/30/19 13:50 MCV 93 fl (80-97) 06/30/19 13:50 MCH 31.1 pg (27.0-33.4) 06/30/19 13:50 MCHC 33.4 g/dL (32.0-36.0) 06/30/19 13:50 RDW 15.5 % (11.5-14.0) H 06/30/19 13:50 Plt Count 188 10^3/uL (150-450) 06/30/19 13:50 Lymph % (Auto) 33.1 % (13-45) 06/25/19 00:35 [place] % (Auto) 6.5 % (3-13) 06/25/19 00:35 Eos % (Auto) 0.8 % (0-6) 06/25/19 00:35 Baso % (Auto) 0.5 % (0-2) 06/25/19 00:35 Absolute Neuts (auto) 8.7 10^3/uL (1.7-8.2) H 06/25/19 00:35 Absolute Lymphs (auto) 4.9 10^3/uL (0.5-4.7) H 06/25/19 00:35 Absolute Monos (auto) 1.0 10^3/uL (0.1-1.4) 06/25/19 00:35 Absolute Eos (auto) 0.1 10^3/uL (0.0-0.6) 06/25/19 00:35 Absolute Basos (auto) 0.1 10^3/uL (0.0-0.2) 06/25/19 00:35 Seg Neutrophils % 59.1 % (42-78) 06/25/19 00:35 Platelet Estimate Cancelled 06/26/19 06:07 Carbonic Acid 0.98 mmol/L (1.05-1.35) L 06/29/19 06:39 HCO3/H2CO3 Ratio 25:1 06/29/19 06:39 ABG pH 7.50 (7.35-7.45) H 06/29/19 06:39 ABG pCO2 32.4 mmHg (35-45) L 06/29/19 06:39 ABG pO2 92.1 mmHg (80-100) 06/29/19 06:39 ABG HCO3 24.8 mmol/L (20-24) H 06/29/19 06:39 ABG Total CO2 25.8 mmol/L (21-25) H 06/29/19 06:39 ABG O2 Saturation 97.7 % (94-98) 06/29/19 06:39 ABG Base Excess 1.8 mmol/L 06/29/19 06:39 FiO2 3L 06/29/19 06:39 Sodium 135.7 mmol/L (137-145) L 06/30/19 13:50 Potassium 4.3 mmol/L (3.6-5.0) 06/30/19 13:50 Chloride 96 mmol/L (98-107) L 06/30/19 13:50 Carbon Dioxide 28 mmol/L (22-30) 06/30/19 13:50 Anion Gap 12 (5-19) 06/30/19 13:50 BUN 51 mg/dL (7-20) H 06/30/19 13:50 Creatinine 10.93 mg/dL (0.52-1.25) H 06/30/19 13:50 Est GFR ( Amer) 4 (>60) L 06/30/19 13:50 Est GFR (MDRD) Non-Af 4 (>60) L 06/30/19 13:50 Glucose 112 mg/dL (75-110) H 06/30/19 13:50 POC Glucose 95 mg/dL (70-110) 06/28/19 10:38 Lactic Acid (Sepsis) 5.7 mmol/L (0.7-2.1) H 06/25/19 00:35 Calcium 9.4 mg/dL (8.4-10.2) 06/30/19 13:50 Magnesium 2.2 mg/dL (1.6-2.3) 06/25/19 00:35 Total Bilirubin 0.5 mg/dL (0.2-1.3) 06/25/19 00:35 Direct Bilirubin 0.3 mg/dL (0.0-0.4) 06/25/19 00:35 Neonat Total Bilirubin Not Reportable 06/25/19 00:35 Neonat Direct Bilirubin Not Reportable 06/25/19 00:35 Neonat Indirect Bili Not Reportable 06/25/19 00:35 AST 18 U/L (14-36) 06/25/19 00:35 ALT 12 U/L (<35) 06/25/19 00:35 Alkaline Phosphatase 136 U/L (38-126) H 06/25/19 00:35 Troponin I 0.053 ng/mL 06/25/19 00:35 Total Protein 7.3 g/dL (6.3-8.2) 06/25/19 00:35 Albumin 3.9 g/dL (3.5-5.0) 06/25/19 00:35 Slides for Path Review Cancelled 06/26/19 06:07 06/25/19 00:35 Troponin I 0.053 Impressions: Chest X-Ray 06/25/19 00:24 IMPRESSION: Slightly worsening aeration of the lungs. Chest X-Ray 06/26/19 00:00 IMPRESSION: IMPROVED AERATION. STABLE CARDIOMEGALY. Stroke Is this a Stroke Patient?: No Acute Heart Failure - Is this a Heart Failure Patient?: No
[2019-06-30] MEDS: NITROGLYCERIN 5 MG (0.2 MG/HR) PATCH.TD24 TD SCH (18:29)
[2019-07-01] MEDS: IPRATROPIUM/ALBUTEROL 0.5-2.5 MG/3 ML AMPUL NEB SCH ×4 (00:30→11:46)
[2019-07-01] MEDS: HEPARIN SOD (PORCINE) 5,000 UNIT/ML 1 ML VIAL SUBCUT SCH (05:27)
[2019-07-01] MEDS: CALCIUM ACETATE 667 MG CAPSULE PO SCH ×2 (08:42→12:45)
[2019-07-01] MEDS ORDERED: ACETAMINOPHEN 325 MG TABLET PO PRN (10:08)
--- NOTE | 2019-07-01 11:12 | RADIOLOGY REPORT (SQ) ---
EXAM DESCRIPTION: MRI HEAD WITHOUT COMPLETED DATE/TIME: 07/01/2019 10:10 am REASON FOR STUDY: R/O Stroke, pt c/o vision problems COMPARISON: MRA a rincon of [place] 03/10/2015 TECHNIQUE: Multiplanar imaging includes non-contrasted T1, T2, FLAIR, and diffusion with ADC map seq uences. Images stored on PACS. LIMITATIONS: None. FINDINGS: ANATOMY: No developmental anomalies. Normal vascular flow voids. Pituitary fossa normal. CSF SPACES: Normal in size and contour. No hemorrhage. CEREBRUM: Sulci and gyri normal in size and contour. Normal white matter signal on FLAIR imaging. No evidence of hemorrhage, mass, or extraaxial fluid collection. POSTERIOR FOSSA: There is a chronic infarct in the right daniel extending into the right brainstem and cerebral peduncle, best shown on axial T2 images 11-15. This is unchanged from source data and from the MRA exam 03/10/2015. Diffusion-weighted images demonstrate no signal abnormalities in midbrain, daniel or brainstem. No hem orrhage. No edema, masses or mass effect. Internal auditory canals, cerebello-pontine angles, mastoi ds normal. DIFFUSION IMAGING: Negative for acute or sub-acute infarction. ORBITS: No masses. Globes normal. PARANASAL SINUSES: No fluid levels. Mucosa normal. OTHER: No other significant finding. 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 TECHNICAL DOCUMENTATION: JOB ID: [id number] 1909 [employer]- All Rights Reserved Reading location - IP/workstation name: [email or web address]
[2019-07-01] MEDS: CEFEPIME 1 GM/D5W RTU 1 GM/50 ML RTUPB IV SCH (11:26)
[2019-07-01] MEDS: TACROLIMUS ANHYDROUS 1 MG CAPSULE PO SCH (11:28)
[2019-07-01] MEDS: FUROSEMIDE 80 MG TABLET PO SCH (11:28)
[2019-07-01] MEDS: VENLAFAXINE HCL 75 MG CAP.SR.24H PO SCH (11:29)
[2019-07-01] MEDS: AMLODIPINE BESYLATE 10 MG TABLET PO SCH (11:29)
[2019-07-01] MEDS: CARVEDILOL 3.125 MG TABLET PO SCH (11:30)
[2019-07-01] MEDS: VALSARTAN 40 MG TABLET PO SCH (11:30)
[2019-07-01] MEDS: PREDNISONE 5 MG TABLET PO SCH (11:30)
[2019-07-01] MEDS: NITROGLYCERIN 5 MG (0.2 MG/HR) PATCH.TD24 TD SCH (11:30)
[2019-07-01] MEDS: LORATADINE 10 MG TABLET PO SCH (11:31)
[2019-07-01 12:57] VITALS: BP 157/84
[2019-07-01] MEDS ORDERED: CEFEPIME 1 GM/D5W RTU 1 GM/50 ML RTUPB IV SCH (22:00)
== END 2019-07-01 13:30 | disposition home or self-care (01) | DRG 291 ==
LOC: ER 00:17 → EH 05:29 → 3W 06:55 → ICU 12:00 → 3W 17:19
PROVIDERS: ADMIT Internal Medicine; ATTEND Internal Medicine
PROC: 5A1D70Z Performance of Urinary Filtration, Intermittent, Less than 6 Hours Per Day (ICD-10-PCS; principal; 2019-06-25)
PROC: 5A09457 Assistance with Respiratory Ventilation, 24-96 Consecutive Hours, Continuous Positive Airway Pressure (ICD-10-PCS; 2019-06-25)
PROC: 5A1D70Z Performance of Urinary Filtration, Intermittent, Less than 6 Hours Per Day (ICD-10-PCS; 2019-06-28)
PROC: 5A1D70Z Performance of Urinary Filtration, Intermittent, Less than 6 Hours Per Day (ICD-10-PCS; 2019-06-30)
DX: I13.2 Hypertensive heart and chronic kidney disease with heart failure and with stage 5 chronic kidney disease, or end stage renal disease (principal); J96.02 Acute respiratory failure with hypercapnia; N18.6 End stage renal disease; I50.23 Acute on chronic systolic (congestive) heart failure; J96.01 Acute respiratory failure with hypoxia; T86.12 Kidney transplant failure; N17.9 Acute kidney failure, unspecified; I16.9 Hypertensive crisis, unspecified; I69.354 Hemiplegia and hemiparesis following cerebral infarction affecting left non-dominant side; Q61.2 Polycystic kidney, adult type; I42.9 Cardiomyopathy, unspecified; E78.5 Hyperlipidemia, unspecified; I73.9 Peripheral vascular disease, unspecified; M19.90 Unspecified osteoarthritis, unspecified site; M10.9 Gout, unspecified; F32.9 Major depressive disorder, single episode, unspecified; R74.0 Nonspecific elevation of levels of transaminase and lactic acid dehydrogenase [LDH]; D63.1 Anemia in chronic kidney disease; E66.9 Obesity, unspecified; E83.42 Hypomagnesemia; E83.39 Other disorders of phosphorus metabolism; Z79.899 Other long term (current) drug therapy; Z88.0 Allergy status to penicillin; Z91.14 Patient's other noncompliance with medication regimen; Z99.2 Dependence on renal dialysis
CPT/HCPCS: 36415; 36600; 70551; 71045; 80048; 80053; 82803; 82962; 83605; 83735; 84484; 85025; 85027; 87040; 93005; 93010; 94640; 94660; 96365; 99285; J0692; J1644; J3490; J7507; J7512; J7620; Q5105

== ENCOUNTER 2020-04-24 06:36 | Emergency (ER) | payer MEDICARE, MEDICAID ==
--- NOTE | 2020-04-24 08:23 | ER Document Report ---
ED General - General Chief Complaint: Leg Pain Stated Complaint: LEFT LEG PAIN Time Seen by Provider: 04/24/20 08:22 Primary Care Provider: MAURICE SINGH MD [Primary Care Provider] - Follow up as needed Mode of Arrival: Ambulatory Information source: Patient Notes: 59-year-old female dialysis patient presented emergency department chief complaint of left lower extremity pain. Patient reports pain ongoing for the last 2 weeks. She reports swelling. She does report a history of DVT, states she is concerned that she is getting another one. Patient denies any recent travel. She has not on oral anticoagulation, she states she does get anticoagulation through her dialysis. TRAVEL OUTSIDE OF THE [place] IN LAST 30 DAYS: No - Related Data Allergies/Adverse Reactions: Penicillins Allergy (Unknown, Verified 03/01/19 07:20) Past Medical History - General Information source: Patient - Social History Smoking Status: Former Smoker Family History: Reviewed & Not Pertinent, Hypertension - Past Medical History Cardiac Medical History: Reports: Hx Hypercholesterolemia, Hx Hypertension, Hx Peripheral Vascular Disease Neurological Medical History: Reports: Hx Cerebrovascular Accident - 2005 Renal/ Medical History: Reports: Hx End Stage Renal Disease, Hx Hemodialysis. Denies: Hx Peritoneal Dialysis GI Medical History: Reports: Hx Diverticulitis Musculoskeletal Medical History: Reports Hx Arthritis, Reports Hx Gout Psychiatric Medical History: Reports: Hx Depression Past Surgical History: Reports: Hx Urinary Tract Surgery - Kidney transplant, Hx Vascular Surgery - HD fistula, Other - Angioplasty of right common iliac artery and right external iliac artery. Denies: Hx Pacemaker - Immunizations Hx Diphtheria, Pertussis, Tetanus Vaccination: No Hx Pneumococcal Vaccination: 05/28/19 Review of Systems - Review of Systems Constitutional: No symptoms reported EENT: No symptoms reported Cardiovascular: No symptoms reported Respiratory: No symptoms reported Gastrointestinal: No symptoms reported Genitourinary: No symptoms reported Female Genitourinary: No symptoms reported Musculoskeletal: See HPI Skin: See HPI Hematologic/Lymphatic: No symptoms reported Neurological/Psychological: No symptoms reported Physical Exam - Vital signs Vitals: Temp Pulse Resp BP Pulse Ox 97.7 F 68 20 132/60 H 99 04/24/20 06:41 04/24/20 06:41 04/24/20 06:41 04/24/20 06:41 04/24/20 06:41 - Notes Notes: PHYSICAL EXAMINATION: GENERAL: Well-appearing, well-nourished and in no acute distress. HEAD: Atraumatic, normocephalic. EYES: Pupils equal round and reactive to light, extraocular movements intact, conjunctiva are normal. ENT: Nares patent, oropharynx clear without exudates. Moist mucous membranes. NECK: Normal range of motion, supple without lymphadenopathy LUNGS: Breath sounds clear to auscultation bilaterally and equal. No wheezes rales or rhonchi. HEART: Regular rate and rhythm without murmurs ABDOMEN: Soft, nontender, nondistended abdomen. No guarding, no rebound. No masses appreciated. Female : deferred Musculoskeletal: Normal range of motion, no pitting or edema. No cyanosis. NEUROLOGICAL: Cranial nerves grossly intact. Normal speech. Normal sensory, motor exams PSYCH: Normal mood, normal affect. SKIN: Vesicular rash noted to anterior thigh on the left lower extremity. Course - Re-evaluation Re-evalutation: 04/24/20 09:07 Patient has vesicular lesions on the anterior portion of her left lower extremity over dermatome and L4. She denies any history of shingles. She states the pain was there prior to the rash appearing. The skin is very tender with light touch. Will obtain basic labs and a venous Doppler since patient does have a history of DVT. Venous Dopplers negative for DVT. Patient will be treated for shingles. Discussed dosing of medications with Dr. Root due to patient's renal insufficiency and dialysis schedule. - Vital Signs Vital signs: Temp Pulse Resp BP Pulse Ox 97.4 F 64 16 117/59 L 100 04/24/20 12:02 04/24/20 12:02 04/24/20 12:02 04/24/20 12:02 04/24/20 12:02 - Laboratory Result Diagrams: 04/24/20 09:51 04/24/20 09:51 Laboratory results interpreted by me: 04/24/20 04/24/20 09:51 09:51 RBC 3.50 L Hgb 11.4 L Hct 35.0 L MCV 100 H RDW 15.4 H Lymph % (Auto) 12.8 L Sodium 134.8 L Potassium 5.5 H BUN 50 H Creatinine 11.47 H Est GFR ( Amer) 4 L Est GFR (MDRD) Non-Af 3 L Direct Bilirubin 0.5 H Discharge - Discharge Clinical Impression: Shingles Qualifiers: Herpes zoster complications: without complications Qualified Code(s): B02.9 - Zoster without complications Condition: Stable Disposition: HOME, SELF-CARE Additional Instructions: Shingles You have shingles. Shingles is caused by the chicken pox virus, The virus has been surviving dormant in a nerve cell since you had chicken pox years ago. The virus has spread down a nerve root to reach the skin. Typically, an band-like area of pain and skin sensitivity develops, then small blisters erupt in the area. Shingles lasts two or three weeks, but sometimes leaves persistent pain. You are contagious -- you can give children chicken pox. But you can't give anyone shingles. Antiviral medicines (such as acyclovir or famciclovir) can help, but the rash usually worsens for about a week. Pain medication is often given if the area hurts. Antihistamines such as Benadryl may be necessary for itching if it does not respond to soda baths and calamine lotion. Sometimes cortisone medicine or nerve-block shots are necessary if pain is severe. If the area remains severely painful as the sores heal, or if you suspect an infection developing in the sores, see your doctor. The venous Doppler ultrasound was negative. The rash you have on your leg and the pain are from shingles. Please take medication as prescribed. You were given a dose here in the emergency department today. Please take your next dose after you receive dialysis. Only take a dose after your dialysis days. Please follow-up with Dr. Singh. I have prescribed you some Percocet, please do not take this at the same time that you take the Nucynta as the are similar medications. Prescriptions: Oxycodone HCl/Acetaminophen [Percocet 5-325 mg Tablet] 1 tab PO Q6H PRN #15 tablet PRN Reason: Valacyclovir HCl [Valacyclovir] 500 mg PO Q48H #6 tablet Referrals: MAURICE SINGH MD [Primary Care Provider] - Follow up as needed
[2020-04-24] MEDS ORDERED: OXYCODONE-ACETAMINOPHEN 5-325 MG TABLET PO ONE (08:33)
[2020-04-24 10:09] LABS: HEMOGLOBIN 11.4 g/dL (12.0-15.5); TOTAL CELLS COUNTED % (AUTO) 100 %
[2020-04-24 10:15] LABS: ABSOLUTE BASOPHILS # (AUTO) 0.2 10^3/uL (0.0-0.2); ABSOLUTE LYMPHOCYTES (AUTO) 1.2 10^3/uL (0.5-4.7); ABSOLUTE MONOCYTES (AUTO) 0.9 10^3/uL (0.1-1.4); ABSOLUTE NEUT (AUTO) 7.1 10^3/uL (1.7-8.2); EOSINOPHILS % (AUTO) 0.4 % (0-6); LYMPHOCYTES % (AUTO) 12.8 % (13-45); MEAN CORPUSCULAR HEMOGLOBIN 32.5 pg (27.0-33.4); MEAN CORPUSCULAR HGB CONC 32.6 g/dL (32.0-36.0); MEAN CORPUSCULAR VOLUME 100 fl (80-97); MONOCYTES % (AUTO) 9.7 % (3-13); RED CELL DISTRIBUTION WIDTH 15.4 % (11.5-14.0); SEGMENTED NEUTROPHILS % (AUTO) 75.1 % (42-78); WHITE BLOOD COUNT 9.5 10^3/uL (4.0-10.5)
[2020-04-24 10:30] LABS: ALBUMIN 3.6 g/dL (3.5-5.0); ALKALINE PHOSPHATASE 45 U/L (38-126); ANION GAP 13 (5-19); ASPARTATE AMINO TRANSFERASE 19 U/L (14-36); BILIRUBIN,DIRECT 0.5 mg/dL (0.0-0.4); BILIRUBIN,TOTAL 0.7 mg/dL (0.2-1.3); BLOOD UREA NITROGEN 50 mg/dL (7-20); CALCIUM 8.4 mg/dL (8.4-10.2); CARBON DIOXIDE 23 mmol/L (22-30); CHLORIDE 99 mmol/L (98-107); GLUCOSE 97 mg/dL (75-110); POTASSIUM 5.5 mmol/L (3.6-5.0); TOTAL PROTEIN 6.3 g/dL (6.3-8.2)
[2020-04-24 10:48] LABS: PLATELET COUNT 228 10^3/uL (150-450)
[2020-04-24] MEDS ORDERED: VALACYCLOVIR HCL 500 MG TABLET PO ONE (10:50)
--- NOTE | 2020-04-24 11:17 | RADIOLOGY REPORT (SQ) ---
EXAM DESCRIPTION: VENOUS UNILATERAL LOWER IMAGES COMPLETED DATE/TIME: 04/24/2020 10:02 am REASON FOR STUDY: LLE pain/swelling COMPARISON: None. TECHNIQUE: Dynamic and static calvo scale and color images acquired of the left leg venous system. Se lected spectral images acquired with additional compression and augmentation maneuvers. The contralat eral common femoral vein and saphenofemoral junction were also imaged. Images stored on PACS. LIMITATIONS: None. FINDINGS: COMMON FEMORAL: Normal phasicity, compression and augmentation. No visualized echogenic ma terial on calvo scale. No defects on color images. FEMORAL: Normal compression and augmentation. No visualized echogenic material on calvo scale. No defe cts on color images. POPLITEAL: Normal compression, augmentation. No visualized echogenic material on calvo scale. No defec ts on color images. CALF VESSELS: Normal compression, augmentation. No visualized echogenic material on calvo scale. No de fects on color images. GSV and SSV: Normal compression, augmentation. No visualized echogenic material on calvo scale. No def ects on color images. ANY DEEP VENOUS INSUFFICIENCY: Not evaluated. ANY EVIDENCE OF POPLITEAL CYST: No. OTHER: No other significant finding. CONTRALATERAL COMMON FEMORAL VEIN AND SAPHENOFEMORAL JUNCTION: Normal phasicity, compression and augmentation. No visualized echogenic material on calvo scale. No de fects on color images. IMPRESSION: No DVT or SVT in the left lower extremity. TECHNICAL DOCUMENTATION: JOB ID: [id number] 2010 [employer]- All Rights Reserved Reading location - IP/workstation name: [email or web address]
[2020-04-24 12:22] VITALS: BP 117/59
== END 2020-04-24 12:27 | disposition home or self-care (01) ==
LOC: ER 06:36
DX: M79.605 Pain in left leg (principal); B02.9 Zoster without complications; E78.00 Pure hypercholesterolemia, unspecified; I12.0 Hypertensive chronic kidney disease with stage 5 chronic kidney disease or end stage renal disease; N18.6 End stage renal disease; Z99.2 Dependence on renal dialysis; Z88.0 Allergy status to penicillin; Z86.73 Personal history of transient ischemic attack (TIA), and cerebral infarction without residual deficits; Z94.0 Kidney transplant status
CPT/HCPCS: 99285; 36415; 85025; 80053; 93971; A9270 ×2